=== PATIENT | male | born 1960 | race Caucasian/White ===

== ENCOUNTER 2016-08-19 12:04 | Inpatient (IN) | payer OTHER ==
[~2016-08-19] VITALS: Ht 182.9 cm; Wt 173.0 kg
[2016-08-19] MEDS ORDERED: IPRATRPIUM/ALBUTEROL 0.5/2.5MG 3 ML NEBU. NEB ONE (13:00)
[2016-08-19 13:39] LABS: BASO % 0 % (0-3); EOS % 0 % (0-3); HEMATOCRIT 43.6 % (39.0-53.0); HEMOGLOBIN 13.7 g/dL (13.0-17.5); LYMPH # 1.2 x10^3/uL (1.0-4.8); LYMPH % 11 % (24-48); MEAN CORPUSCULAR HEMOGLOBIN 25 pg (25-35); MEAN CORPUSCULAR HGB CONC 31 g/dL (31-37); MEAN CORPUSCULAR VOLUME 79 fL (79-100); MONO % 11 % (0-9); NEUT % 78 % (31-73); PLATELET COUNT 234 x10^3/uL (140-400); RED BLOOD COUNT 5.55 x10^6/uL (4.30-5.70); RED CELL DISTRIBUTION WIDTH 17.4 % (11.5-14.5); WHITE BLOOD COUNT 10.8 x10^3/uL (4.0-11.0)
[2016-08-19 13:48] LABS: CALCIUM 8.5 mg/dL (8.5-10.1); CREATININE 1.1 mg/dL (0.7-1.3); GFR 69.8; POTASSIUM 5.1 mmol/L (3.5-5.1)
--- NOTE | 2016-08-19 13:51 | RAD ---
EXAM: Chest one view. HISTORY: Chest pain. COMPARISON: 07/23/2005. FINDINGS: A frontal view of the chest is obtained. There are limitations from underpenetration. The left costophrenic aorta partially scooter. There are no clear confluent infiltrates. There is no pneumothorax or pleural effusion. The heart is mildly enlarged. IMPRESSION: 1. Limited projection. Mild cardiomegaly.
[2016-08-19 13:54] LABS: ALBUMIN 3.1 g/dL (3.4-5.0); DIRECT BILIRUBIN 0.1 mg/dL (0.0-0.2); TOTAL BILIRUBIN 0.5 mg/dL (0.2-1.0)
[2016-08-19] MEDS ORDERED: ASPIRIN 81 MG TAB.CHEW PO ONE (14:15)
[2016-08-19] MEDS ORDERED: FUROSEMIDE 40 MG/4 ML VIAL IVP ONE (14:15)
--- NOTE | 2016-08-19 14:24 | EKG ---
[facility] [address] [place] [address] Test Date: 2016-08-19 Test Time: 13:07:40 Pat Name: ELENA CHO Department: Room: Gender: M Deburrer Machine: : [id number] Requested By: TALIA DEL ROSARIO Order Number: [id number] Reading MD: Alee Renae Measurements Intervals Russell Rate: 105 P: MI: QRS: -107 QRSD: 102 T: 51 QT: 330 QTc: 440 Interpretive Statements ATRIAL FLUTTER/FIBRILLATION LOW LIMB LEAD VOLTAGE QRS(T) CONTOUR ABNORMALITY CONSIDER ANTEROSEPTAL MYOCARDIAL DAMAGE ABNORMAL ECG RI6.01 No previous ECG available for comparison Electronically Signed On 08-21-2016 20:21:35 STOCK ANALYST by Alee Renae
--- NOTE | 2016-08-19 14:25 | PHYS DOC ---
Past Medical History Past Medical History: No Pertinent History Past Surgical History: No Surgical History Alcohol Use: None Drug Use: None Adult General Chief Complaint Chief Complaint: SHORTNESS OF BREATH HPI HPI 56-year-old male presenting to the emergency department today with shortness of breath over the past 2 or 3 days. He is also noticed leg swelling and worsening dyspnea on exertion. He is also been gaining weight over the past few days. He denies any chest pain or abdominal pain. He has mild nausea intermittently without any vomiting. Onset 2-3 days. Location lungs. Duration intermittent. No alleviating factors present. Review of systems is negative for fevers chills cough abdominal pain or chest pain. All other review of systems is negative unless otherwise noted in history of present illness. Review of Systems Review of Systems SEE ABOVE. Current Medications Current Medications Current Medications Medications (Trade) Dose Ordered Sig/Josh Start Time Stop Time Status Last Admin Dose Admin Albuterol/ Ipratropium (Duoneb) 3 ml 1X ONCE 08/19/16 13:00 08/19/16 13:01 UNV 08/19/16 13:29 3 ML Aspirin (Children'S Aspirin) 324 mg 1X ONCE 08/19/16 14:15 08/19/16 14:16 UNV Furosemide (Lasix) 40 mg 1X ONCE 08/19/16 14:15 08/19/16 14:16 UNV Morphine Sulfate 2 mg PRN Q2HR PRN 08/19/16 14:30 08/20/16 14:29 UNV Ondansetron HCl (Zofran) 4 mg PRN Q8HRS PRN 08/19/16 14:30 08/20/16 14:29 UNV Physical Exam Physical Exam Constitutional: Well developed, well nourished, no acute distress, non-toxic appearance. HENT: Normocephalic, atraumatic, bilateral external ears normal, oropharynx moist, no oral exudates, nose normal. [] Eyes: PERRLA, EOMI, conjunctiva normal, no discharge. [] Neck: Normal range of motion, no tenderness, supple, no stridor. Cardiovascular:Heart rate regular rhythm, no murmur [] Lungs & Thorax: Patient had crackles bilaterally in the lungs with mild wheezing present. Abdomen: Bowel sounds normal, soft, no tenderness, no masses, no pulsatile masses. Skin: Warm, dry, no erythema, no rash. [] Back: No tenderness, no CVA tenderness. [] Extremities: No tenderness, no cyanosis, no clubbing, ROM intact, 3+ edema present. Venous congestion present bilaterally. Neurologic: Alert and oriented X 3, normal motor function, normal sensory function, no focal deficits noted. [] Psychologic: Affect normal, judgement normal, mood normal. [] Current Patient Data Vital Signs Vital Signs Date Time Temp Pulse Resp B/P Pulse Ox O2 Delivery O2 Flow Rate FiO2 08/19/16 13:29 Nasal Cannula 2.0 Lab Values Laboratory Tests Test 08/19/16 13:30 White Blood Count 10.8x10^3/uL (4.0-11.0) Red Blood Count 5.55x10^6/uL (4.30-5.70) Hemoglobin 13.7g/dL (13.0-17.5) Hematocrit 43.6% (39.0-53.0) Mean Corpuscular Volume 79fL (79-100) Mean Corpuscular Hemoglobin 25pg (25-35) Mean Corpuscular Hemoglobin Concent 31g/dL (31-37) Red Cell Distribution Width 17.4% (11.5-14.5) H Platelet Count 234x10^3/uL (140-400) Neutrophils (%) (Auto) 78% (31-73) H Lymphocytes (%) (Auto) 11% (24-48) L Monocytes (%) (Auto) 11% (0-9) H Eosinophils (%) (Auto) 0% (0-3) Basophils (%) (Auto) 0% (0-3) Neutrophils # (Auto) 8.4x10^3uL (1.8-7.7) H Lymphocytes # (Auto) 1.2x10^3/uL (1.0-4.8) Monocytes # (Auto) 1.2x10^3/uL (0.0-1.1) H Eosinophils # (Auto) 0.0x10^3/uL (0.0-0.7) Basophils # (Auto) 0.0x10^3/uL (0.0-0.2) Sodium Level 134mmol/L (136-145) L Potassium Level 5.1mmol/L (3.5-5.1) Chloride Level 98mmol/L (98-107) Carbon Dioxide Level 32mmol/L (21-32) Anion Gap 4 (6-14) L Blood Urea Nitrogen 32mg/dL (8-26) H Creatinine 1.1mg/dL (0.7-1.3) Estimated GFR (Cockcroft-Gault) 69.8 Glucose Level 107mg/dL (70-99) H Calcium Level 8.5mg/dL (8.5-10.1) Total Bilirubin 0.5mg/dL (0.2-1.0) Direct Bilirubin 0.1mg/dL (0.0-0.2) Aspartate Amino Transferase (AST) 30U/L (15-37) Alanine Aminotransferase (ALT) 35U/L (16-63) Alkaline Phosphatase 57U/L (46-116) Troponin I Quantitative 0.061ng/mL (0.000-0.055) LD-Qil-J-Type Natriuretic Peptide 3349pg/mL (0-124) H Total Protein 6.0g/dL (6.4-8.2) L Albumin 3.1g/dL (3.4-5.0) L Lipase 65U/L (73-393) L Laboratory Tests 08/19/16 13:30 Laboratory Tests 08/19/16 13:30 EKG EKG [] EKG shows an irregular rhythm with a mildly tachycardic rate. [place] is normal. Intervals are within normal limits. ST segments congruent. Radiology/Procedures Radiology/Procedures [] Course & Med Decision Making Course & Med Decision Making Pertinent Labs and Imaging studies reviewed. (See chart for details) [] 56-year-old male presenting to the emergency department today with worsening dyspnea and weight gain. Patient hypoxic initially placed on nasal cannula 4 L. Workup suggestive of CHF. Patient was given IV furosemide and admitted to our hospital for further evaluation workup and care. Cardiology and pulmonology consult placed. Dragon Disclaimer Dragon Disclaimer This electronic medical record was generated, in whole or in part, using a voice recognition dictation system. Departure Departure Impression: Primary Impression: CHF exacerbation Additional Impressions: Atrial fibrillation Obesity Dyspnea Hypoxia Disposition: ADMITTED INPATIENT Admitting Physician: Other (REUSCH) Condition: STABLE Referrals: NO PCP (PCP) Problem Qualifiers TALIA DEL ROSARIO MD Aug 19, 2016 14:25
[2016-08-19] MEDS ORDERED: ONDANSETRON PF 4 MG/2 ML VIAL. IV PRN (14:30)
[2016-08-19] MEDS ORDERED: MORPHINE SULFATE 2 MG/ML DISP.SYRIN. IV PRN (14:30)
--- NOTE | 2016-08-19 16:09 | ACF ---
Admission Forms Criteria HEART FAILURE: COMMON COMPLICATIONS Clinical Indications for Inpatient Care (Place 'X' for any and all applicable criteria): Ongoing inpatient care may be indicated for heart failure with ANY ONE of the following (1)(2)(3)(4)(5): [ ]I. Ongoing need for care for primary condition requiring frequent therapy adjustments because of changes in cardiac function (eg, drug dosage changes for drugs that are renally metabolized) [ ]II. New-onset heart failure [ ]III. Heart failure with decreased urine output not responsive to attempts to optimize volume status [ ]IV. Acute cardiac ischemia causing or associated with failure [X]V. Complications of heart failure, including ANY ONE of the following: [ ]a) Pericardial effusion [ ]b) Symptomatic pleural effusion [ ]c) O2 saturation <90% or PO2 < 60 mm Hg (8.0 kPa) on room air or require baseline supplemental O2 [ ]d) Tachypnea [X]e) Dyspnea [ ]f) Syncope [ ]g) Change in mental status [ ]h) Acute renal insufficiency that is severe (reduction of more than 50% in estimated glomerular filtration rate from baseline) or progressive reduction of more than 25% in estimated glomerular filtration rate from baseline, with creatinine continuing to rise) [ ]i) Hemodynamic instability [ ]j) Anasarca [ ]k) Clinically significant metabolic abnormalities due to heart failure (eg, new-onset metabolic acidosis) Extended stay beyond goal length of stay for primary condition may be needed until ALL of the following are present(1)(3): [ ]a) Stable and effective diuretic regimen established (or patient on stable dialysis regimen if in chronic renal failure) [ ]b) Breathing comfortably at rest [ ]c) Saturation of arterial oxygen greater than 90% or at acceptable baseline [ ]d) Pulmonary edema absent or improved [ ]e) Hemodynamic stability [ ]f) Volume status acceptable on oral medication [ ]g) Peripheral or sacral edema absent or improved [ ]h) Renal function stable and manageable at a lower level of care [ ]i) Complications (eg, pleural effusion) resolved or manageable at a lower level of care [ ]j) Patient or caregiver has received written discharge instructions or educational material addressing activity level, diet, discharge medications, follow-up appointment, weight monitoring, and what to do if symptoms worsen The original [facility] content created by [employer] has been revised. The portions of the content which have been revised are identified through the use of italic text or in bold, and [facility] has neither reviewed nor approved the modified material.All other unmodified content is copyright [facility]. Please see references footnoted in the original [facility] edition 2016 Admission Criteria Met?: Yes DERRICK REMY Aug 19, 2016 16:09
[2016-08-19 17:15] VITALS: BP 159/97
[2016-08-19] MEDS ORDERED: ENAL20TA PO (18:20)
[2016-08-19] MEDS ORDERED: ASPI325T4 PO (18:20)
[2016-08-19] MEDS ORDERED: ATEN25TA PO (18:20)
[2016-08-19 19:22] VITALS: BP 151/73
--- NOTE | 2016-08-19 21:11 | HP ---
ADMIT DATE: 08/19/2016 CHIEF COMPLAINT: Shortness of breath. HISTORY OF PRESENT ILLNESS: The patient is a 56-year-old gentleman with history of CAD, status post MT in 2005, who presented with a 2-3 day history of worsening shortness of breath and swelling. He relates that he had noticed weight gain over the past few days, although unable to specify. Last time he knows of his weight was in April of last year when it was 344, at this time he had lost weight essentially unintentionally to the tune of 50 pounds. He relates that the swelling actually had started about 3 days ago and got worse and worse, shortness of breath about the same time. He denies any ongoing chest pain, has some mild nausea occasionally. Denies any vomiting, abdominal pain or diarrhea. Denies any fevers or chills. Denies any other associated symptoms including cough or chest pain. In the Emergency Room, he was found with a proBNP of 3349 as well as a mildly elevated troponin at 0.061. Chest x-ray, however, revealed only mild cardiomegaly without any clear confluent infiltrate. The patient was therefore admitted with presumed diagnosis of new onset CHF. PAST MEDICAL HISTORY: CAD as above, sees every 6 months and was due for an echo soon. No other medical issues known. FAMILY HISTORY: No heart disease known in family. SOCIAL HISTORY: Lives by himself. Smokes about a pack a day since late teenage years. Denies any alcohol or drug use. ALLERGIES: No known drug allergies. MEDICATIONS: Home medications reconciled with MAR. REVIEW OF SYSTEMS: Positives as per HPI. Rest of organ system review is negative. PHYSICAL EXAMINATION: VITAL SIGNS: From today show a blood pressure of 136/75, heart rate of 104, respiratory rate at 22. He is afebrile. GENERAL: This is a morbidly obese gentleman, alert and oriented, in no acute distress. HEENT: Shows no scleral icterus. NECK: Short and thick. No JVD, no lymphadenopathy. CHEST: Lungs are clear. LUNGS: With distant breath sounds. HEART: Regular rate and rhythm. Distant heart sounds. ABDOMEN: Massively obese striae present, organs could not be palpated. EXTREMITIES: Show 1 to 2+ edema in the lower extremities bilaterally. SKIN: Warm, soft and dry without any rash. LABORATORY DATA: BUN and creatinine of 32 and 1.1. Electrolytes with a sodium of 134, potassium 5.1. ProBNP 3349, troponin 0.061, albumin 3.1. Hematology with a WBC of 10.8, hemoglobin 13.7, platelets of 234, MCV at 79. ASSESSMENT AND PLAN: The patient is a 56-year-old gentleman with morbid obesity, heart disease as well as smoking for risk factors, now presenting with signs and symptoms of congestive heart failure. He has had no history of such in the past according to him. We will get him to the CCU, diurese him further carefully given his apparent azotemia. We will need an echo. Cardiac consult has been obtained. Cannot rule out chronic obstructive pulmonary disease component in him as well. Pulmonary consult has been obtained as well. The patient has microcytic anemia, suspicious for GI bleed. We will obtain additional labs to elucidate. Prophylaxis will be obtained with heparin subcutaneous and H2 onel for now. URBAN PRASAD MD DR: SUJATA/nts JOB#: [id number] / [id number] GABRIELA
[2016-08-19 22:32] VITALS: BP 135/96
[2016-08-20] VITALS (13 sets, daily range): BP systolic 98–184; BP diastolic 58–104
[2016-08-20 06:12] LABS: CALCIUM 8.4 mg/dL (8.5-10.1); CREATININE 1.1 mg/dL (0.7-1.3); GFR 69.8; POTASSIUM 5.1 mmol/L (3.5-5.1)
[2016-08-20 06:35] LABS: BASO % 0 % (0-3); EOS % 0 % (0-3); HEMATOCRIT 47.8 % (39.0-53.0); HEMOGLOBIN 14.5 g/dL (13.0-17.5); LYMPH # 1.6 x10^3/uL (1.0-4.8); LYMPH % 14 % (24-48); MEAN CORPUSCULAR HEMOGLOBIN 24 pg (25-35); MEAN CORPUSCULAR HGB CONC 30 g/dL (31-37); MEAN CORPUSCULAR VOLUME 79 fL (79-100); MONO % 13 % (0-9); NEUT % 73 % (31-73); PLATELET COUNT 245 x10^3/uL (140-400); RED BLOOD COUNT 6.03 x10^6/uL (4.30-5.70); RED CELL DISTRIBUTION WIDTH 17.5 % (11.5-14.5); WHITE BLOOD COUNT 11.3 x10^3/uL (4.0-11.0)
[2016-08-20] MEDS ORDERED: DILTIAZEM 125 MG in IV DEXTROSE 5% 100 ML IV PRN (08:45)
[2016-08-20] MEDS ORDERED: DILTIAZEM IV PUSH 25 MG/5 ML VIAL. IVP ONE (09:00)
[2016-08-20] MEDS ORDERED: DIGOXIN 500 MCG/2 ML AMPUL. IV ONE (09:00)
[2016-08-20] MEDS: FUROSEMIDE 40 MG TABLET PO SCH ×3 (10:00→12:07)
--- NOTE | 2016-08-20 10:11 | PDOC2 ---
HALEY IRENE PRIMER INSERTING MACHINE OPERATOR 08/20/16 1011: CARDIAC CONSULT DATE OF CONSULT Date of Consult DATE: 08/20/16 TIME: 09:32 REASON FOR CONSULT Reason for Consult: CHF REFERRING PHYSICIAN Referring Physician: Ermias SOURCE Source: Chart review, Patient HISTORY OF PRESENT ILLNESS HISTORY OF PRESENT ILLNESS This is a pleasant 56 yo male admitted for complains of SOA in the last 2-3 days. Reports that his activity tolerance has decreased, increasing MCKAY. Denies cough. and no PND. He feels that he has gained weight, feel bloated and tighter LE. Denies any chest pain and does not seem to have sensation of palpitations. His mobility is rather limited due to morbid obesity. Denies any fever, chills, falls, dizziness, or any recent injury. Medications sandoval he has been taking atenolol, vasotec and ASA. Currently he is feeling better upright sitting. He drinks about 2-3 L of fluids daily and has not been told of any past history of AFIB nor CHF. Denies any past VTE, nor bleeding history. PAST MEDICAL HISTORY Cardiovascular: CAD, HTN, PA (2005), Hyperlipidemia Pulmonary: Other (chronic tobaccoism) CENTRAL NERVOUS SYSTEM: Other (No pertinent history) GI: No pertinent hx Heme/Onc: No pertinent hx Hepatobiliary: No pertinent hx Psych: No pertinent hx Musculoskeletal: Osteoarthritis, Other (morbid obesity) Rheumatologic: No pertinent hx Infectious disease: No pertinent hx ENT: No pertinent hx Renal/: No pertinent hx Endocrine: No pertinent hx Dermatology: No pertinent hx PAST SURGICAL HISTORY Past Surgical History: Other (PCI/stent 2005) FAMILY HISTORY Family History noncontributory to CV SOCIAL HISTORY Smoke: 1 pack per day (>30 yrs) ALCOHOL: none Drugs: None Lives: with Family CURRENT MEDICATIONS CURRENT MEDICATIONS Current Medications Medications (Trade) Dose Ordered Sig/Josh Route PRN Reason Start Time Stop Time Status Last Admin Dose Admin Albuterol/ Ipratropium (Duoneb) 3 ml 1X ONCE NEB 08/19/16 13:00 08/19/16 15:13 DC 08/19/16 13:29 Furosemide (Lasix) 40 mg 1X ONCE IVP 08/19/16 14:15 08/19/16 15:13 DC 08/19/16 16:30 Aspirin (Children'S Aspirin) 324 mg 1X ONCE PO 2/24/17 14:15 08/19/16 15:13 DC 08/19/16 16:29 ALLERGIES ALLERGIES: Coded Allergies: No Known Drug Allergies (Unverified , 08/19/16) ROS Review of System 14 point ROS evaluated with pertinent positives noted per HPI PHYSICAL EXAM General: Alert, Oriented X3, Cooperative, No acute distress HEENT: Atraumatic, Mucous membr. moist/pink Lungs: Other (diminished with diuffse basilar wheeze) Heart: Other (AFIB RVR) Abdomen: Soft, No tenderness, Other (obese) Extremities: No cyanosis, Other (4+ bilateral LE pitting edema) Skin: Other (RLE venous stasis lesion) Neuro: Normal speech, Sensation intact Psych/Mental Status: Mental status NL MUSCULOSKELETAL: Osteoarthritic changes both hands VITALS VITALS Vital Signs Date Time Temp Pulse Resp B/P Pulse Ox O2 Delivery O2 Flow Rate FiO2 08/20/16 07:43 97.7 115 18 122/69 92 Nasal Cannula 4.0 97.7 LABS Lab: Laboratory Tests Test 08/19/16 13:30 08/19/16 20:30 08/20/16 02:30 White Blood Count 10.8x10^3/uL (4.0-11.0) 11.3x10^3/uL (4.0-11.0) Red Blood Count 5.55x10^6/uL (4.30-5.70) 6.03x10^6/uL (4.30-5.70) Hemoglobin 13.7g/dL (13.0-17.5) 14.5g/dL (13.0-17.5) Hematocrit 43.6% (39.0-53.0) 47.8% (39.0-53.0) Mean Corpuscular Volume 79fL (79-100) 79fL (79-100) Mean Corpuscular Hemoglobin 25pg (25-35) 24pg (25-35) Mean Corpuscular Hemoglobin Concent 31g/dL (31-37) 30g/dL (31-37) Red Cell Distribution Width 17.4% (11.5-14.5) 17.5% (11.5-14.5) Platelet Count 234x10^3/uL (140-400) 245x10^3/uL (140-400) Neutrophils (%) (Auto) 78% (31-73) 73% (31-73) Lymphocytes (%) (Auto) 11% (24-48) 14% (24-48) Monocytes (%) (Auto) 11% (0-9) 13% (0-9) Eosinophils (%) (Auto) 0% (0-3) 0% (0-3) Basophils (%) (Auto) 0% (0-3) 0% (0-3) Neutrophils # (Auto) 8.4x10^3uL (1.8-7.7) 8.2x10^3uL (1.8-7.7) Lymphocytes # (Auto) 1.2x10^3/uL (1.0-4.8) 1.6x10^3/uL (1.0-4.8) Monocytes # (Auto) 1.2x10^3/uL (0.0-1.1) 1.4x10^3/uL (0.0-1.1) Eosinophils # (Auto) 0.0x10^3/uL (0.0-0.7) 0.0x10^3/uL (0.0-0.7) Basophils # (Auto) 0.0x10^3/uL (0.0-0.2) 0.0x10^3/uL (0.0-0.2) Sodium Level 134mmol/L (136-145) 134mmol/L (136-145) Potassium Level 5.1mmol/L (3.5-5.1) 5.1mmol/L (3.5-5.1) Chloride Level 98mmol/L (98-107) 96mmol/L (98-107) Carbon Dioxide Level 32mmol/L (21-32) 30mmol/L (21-32) Anion Gap 4 (6-14) 8 (6-14) Blood Urea Nitrogen 32mg/dL (8-26) 31mg/dL (8-26) Creatinine 1.1mg/dL (0.7-1.3) 1.1mg/dL (0.7-1.3) Estimated GFR (Cockcroft-Gault) 69.8 69.8 Glucose Level 107mg/dL (70-99) 66mg/dL (70-99) Calcium Level 8.5mg/dL (8.5-10.1) 8.4mg/dL (8.5-10.1) Total Bilirubin 0.5mg/dL (0.2-1.0) Direct Bilirubin 0.1mg/dL (0.0-0.2) Aspartate Amino Transf (AST/SGOT) 30U/L (15-37) Alanine Aminotransferase (ALT/SGPT) 35U/L (16-63) Alkaline Phosphatase 57U/L (46-116) Troponin I Quantitative 0.061ng/mL (0.000-0.055) 0.046ng/mL (0.000-0.055) 0.044ng/mL (0.000-0.055) KY-Nby-X-Type Natriuretic Peptide 3349pg/mL (0-124) Total Protein 6.0g/dL (6.4-8.2) Albumin 3.1g/dL (3.4-5.0) Lipase 65U/L (73-393) ASSESSMENT/PLAN ASSESSMENT/PLAN 1. Acute CHF with possible diastolic dysfunction: New. Likely induced by uncontrolled AFIB. Better after lasix. 2. AFIB RVR: new onset, suspect has been having paroxysms with multiple potential triggers including JETT/COPD 3. CAD: PA/PCI/stent 2005. CP free, last stress test 2-3 yrs ago 4. HTN 5. HLP 6. Morbid obesity 7. Hypoglycemia 8. Tobaccoism 9. Highly suspect JETT with underlying COPD 10. Venous insufficiency Recommendations 1. TTE tomorrow 2. Cardizem bolus and drip to start. Dig IV bolus 3. TSH, lipid panel, Mg 4. Continue with lasix therapy and will switch to PO 5. Smoking cessation 6. Discussed OAC/NOAC with pt and would prefer to start on eliquis for stroke prevention 7. If no conversion to SR then will plan for outpt cardioversion. 8. Continue with secondary prevention 9. GI prophylaxis. 10. Consult lymphedema specialist 11. Pulmonary consult pending 12. Request records from Dr. Franco in Problems: RADHA BANERJEE MD 08/20/16 1527: CARDIAC CONSULT ALLERGIES ALLERGIES: Coded Allergies: No Known Drug Allergies (Unverified , 08/19/16) ASSESSMENT/PLAN ASSESSMENT/PLAN Patient seen and examined. Agree with PRINT MACHINE OPERATOR's assessment and plan. Congestive heart failure most probably acute on chronic diastolic precipitated by rapid ventricular response. Symptoms improving with diuresis. Start Cardizem infusion and titrate for better rate control of atrial fibrillation with rapid ventricular response. Start a eliquis for stroke prophylaxis. Check 2-D echo to assess left ventricle systolic function. We will obtain records from primary expediter clerk's office and make further recommendations. Thank you for your consultation. Problems: HALEY IRENE APRN Aug 20, 2016 10:11 RADHA BANERJEE MD Aug 20, 2016 15:27
[2016-08-20 10:44] LABS: CHOLESTEROL/HDL RATIO 4.3
--- NOTE | 2016-08-20 11:35 | PDOC ---
PROGRESS NOTES Chief Complaint Chief Complaint CC: Shortness of breath 1. CHF - new 2. A fib 3. CAD 4. HTN 5. HLP 6. Morbid obesity 7. Hypoglycemia 8. Tobaccoism 9. Sleep apnea 10. Venous insufficiency History of Present Illness History of Present Illness Pt sitting in bed today, finished lunch Discussed that cardiology and pulmonology have been consulted Discussed cardiac work up that pt will receive Pt is pleasant and agrees with the plan DW RN Vitals Vitals Vital Signs Date Time Temp Pulse Resp B/P Pulse Ox O2 Delivery O2 Flow Rate FiO2 08/20/16 11:04 97.7 108 20 153/86 95 Nasal Cannula 97.7 08/20/16 08:00 4.0 Physical Exam General: Alert, Oriented X3, Cooperative, No acute distress Heart: Other (AFIB RVR) Lungs: Clear, Other (No wheezing) Abdomen: Soft, No tenderness, Other (obese) Extremities: No cyanosis, Other (4+ bilateral LE pitting edema) Skin: No breakdown, Other (RLE venous stasis lesion) Labs LABS Laboratory Tests Test 08/19/16 13:30 08/19/16 20:30 08/20/16 02:30 White Blood Count 10.8x10^3/uL (4.0-11.0) 11.3x10^3/uL (4.0-11.0) Red Blood Count 5.55x10^6/uL (4.30-5.70) 6.03x10^6/uL (4.30-5.70) Hemoglobin 13.7g/dL (13.0-17.5) 14.5g/dL (13.0-17.5) Hematocrit 43.6% (39.0-53.0) 47.8% (39.0-53.0) Mean Corpuscular Volume 79fL (79-100) 79fL (79-100) Mean Corpuscular Hemoglobin 25pg (25-35) 24pg (25-35) Mean Corpuscular Hemoglobin Concent 31g/dL (31-37) 30g/dL (31-37) Red Cell Distribution Width 17.4% (11.5-14.5) 17.5% (11.5-14.5) Platelet Count 234x10^3/uL (140-400) 245x10^3/uL (140-400) Neutrophils (%) (Auto) 78% (31-73) 73% (31-73) Lymphocytes (%) (Auto) 11% (24-48) 14% (24-48) Monocytes (%) (Auto) 11% (0-9) 13% (0-9) Eosinophils (%) (Auto) 0% (0-3) 0% (0-3) Basophils (%) (Auto) 0% (0-3) 0% (0-3) Neutrophils # (Auto) 8.4x10^3uL (1.8-7.7) 8.2x10^3uL (1.8-7.7) Lymphocytes # (Auto) 1.2x10^3/uL (1.0-4.8) 1.6x10^3/uL (1.0-4.8) Monocytes # (Auto) 1.2x10^3/uL (0.0-1.1) 1.4x10^3/uL (0.0-1.1) Eosinophils # (Auto) 0.0x10^3/uL (0.0-0.7) 0.0x10^3/uL (0.0-0.7) Basophils # (Auto) 0.0x10^3/uL (0.0-0.2) 0.0x10^3/uL (0.0-0.2) Sodium Level 134mmol/L (136-145) 134mmol/L (136-145) Potassium Level 5.1mmol/L (3.5-5.1) 5.1mmol/L (3.5-5.1) Chloride Level 98mmol/L (98-107) 96mmol/L (98-107) Carbon Dioxide Level 32mmol/L (21-32) 30mmol/L (21-32) Anion Gap 4 (6-14) 8 (6-14) Blood Urea Nitrogen 32mg/dL (8-26) 31mg/dL (8-26) Creatinine 1.1mg/dL (0.7-1.3) 1.1mg/dL (0.7-1.3) Estimated GFR (Cockcroft-Gault) 69.8 69.8 Glucose Level 107mg/dL (70-99) 66mg/dL (70-99) Calcium Level 8.5mg/dL (8.5-10.1) 8.4mg/dL (8.5-10.1) Total Bilirubin 0.5mg/dL (0.2-1.0) Direct Bilirubin 0.1mg/dL (0.0-0.2) Aspartate Amino Transf (AST/SGOT) 30U/L (15-37) Alanine Aminotransferase (ALT/SGPT) 35U/L (16-63) Alkaline Phosphatase 57U/L (46-116) Troponin I Quantitative 0.061ng/mL (0.000-0.055) 0.046ng/mL (0.000-0.055) 0.044ng/mL (0.000-0.055) OF-Ocg-L-Type Natriuretic Peptide 3349pg/mL (0-124) Total Protein 6.0g/dL (6.4-8.2) Albumin 3.1g/dL (3.4-5.0) Lipase 65U/L (73-393) Triglycerides Level 81mg/dL (0-150) Cholesterol Level 117mg/dL (0-200) LDL Cholesterol, Calculated 74mg/dL (0-100) VLDL Cholesterol, Calculated 16mg/dL (0-40) HDL Cholesterol 27mg/dL (40-60) Cholesterol/HDL Ratio 4.3 Thyroid Stimulating Hormone (TSH) 0.974uIU/mL (0.358-3.74) Review of Systems Review of Systems Complains of SOA Complains of fatigue Assessment and Plan Assessmemt and Plan Problems Medical Problems: (1) Atrial fibrillation Status: Acute (2) CHF exacerbation Status: Acute (3) Dyspnea Status: Acute (4) Hypoxia Status: Acute (5) Obesity Status: Acute Assessment: CC: Shortness of breath 1. CHF - new 2. A fib 3. CAD 4. HTN 5. HLP 6. Morbid obesity 7. Hypoglycemia 8. Tobaccoism 9. Sleep apnea 10. Venous insufficiency Plan: Cardiology is following - TTE tomorrow, continue Lasix, Cardizem, Dig Pulmonology is following Consult lymphedema specialist Repeat labs PTOT Appreciate input from subspecialties Problems: Comment Review of Relevant I have reviewed the following items johnna (where applicable) has been applied. Labs Laboratory Tests Test 08/19/16 13:30 08/19/16 20:30 08/20/16 02:30 White Blood Count 10.8x10^3/uL (4.0-11.0) 11.3x10^3/uL (4.0-11.0) Red Blood Count 5.55x10^6/uL (4.30-5.70) 6.03x10^6/uL (4.30-5.70) Hemoglobin 13.7g/dL (13.0-17.5) 14.5g/dL (13.0-17.5) Hematocrit 43.6% (39.0-53.0) 47.8% (39.0-53.0) Mean Corpuscular Volume 79fL (79-100) 79fL (79-100) Mean Corpuscular Hemoglobin 25pg (25-35) 24pg (25-35) Mean Corpuscular Hemoglobin Concent 31g/dL (31-37) 30g/dL (31-37) Red Cell Distribution Width 17.4% (11.5-14.5) 17.5% (11.5-14.5) Platelet Count 234x10^3/uL (140-400) 245x10^3/uL (140-400) Neutrophils (%) (Auto) 78% (31-73) 73% (31-73) Lymphocytes (%) (Auto) 11% (24-48) 14% (24-48) Monocytes (%) (Auto) 11% (0-9) 13% (0-9) Eosinophils (%) (Auto) 0% (0-3) 0% (0-3) Basophils (%) (Auto) 0% (0-3) 0% (0-3) Neutrophils # (Auto) 8.4x10^3uL (1.8-7.7) 8.2x10^3uL (1.8-7.7) Lymphocytes # (Auto) 1.2x10^3/uL (1.0-4.8) 1.6x10^3/uL (1.0-4.8) Monocytes # (Auto) 1.2x10^3/uL (0.0-1.1) 1.4x10^3/uL (0.0-1.1) Eosinophils # (Auto) 0.0x10^3/uL (0.0-0.7) 0.0x10^3/uL (0.0-0.7) Basophils # (Auto) 0.0x10^3/uL (0.0-0.2) 0.0x10^3/uL (0.0-0.2) Sodium Level 134mmol/L (136-145) 134mmol/L (136-145) Potassium Level 5.1mmol/L (3.5-5.1) 5.1mmol/L (3.5-5.1) Chloride Level 98mmol/L (98-107) 96mmol/L (98-107) Carbon Dioxide Level 32mmol/L (21-32) 30mmol/L (21-32) Anion Gap 4 (6-14) 8 (6-14) Blood Urea Nitrogen 32mg/dL (8-26) 31mg/dL (8-26) Creatinine 1.1mg/dL (0.7-1.3) 1.1mg/dL (0.7-1.3) Estimated GFR (Cockcroft-Gault) 69.8 69.8 Glucose Level 107mg/dL (70-99) 66mg/dL (70-99) Calcium Level 8.5mg/dL (8.5-10.1) 8.4mg/dL (8.5-10.1) Total Bilirubin 0.5mg/dL (0.2-1.0) Direct Bilirubin 0.1mg/dL (0.0-0.2) Aspartate Amino Transf (AST/SGOT) 30U/L (15-37) Alanine Aminotransferase (ALT/SGPT) 35U/L (16-63) Alkaline Phosphatase 57U/L (46-116) Troponin I Quantitative 0.061ng/mL (0.000-0.055) 0.046ng/mL (0.000-0.055) 0.044ng/mL (0.000-0.055) PN-Rhy-B-Type Natriuretic Peptide 3349pg/mL (0-124) Total Protein 6.0g/dL (6.4-8.2) Albumin 3.1g/dL (3.4-5.0) Lipase 65U/L (73-393) Triglycerides Level 81mg/dL (0-150) Cholesterol Level 117mg/dL (0-200) LDL Cholesterol, Calculated 74mg/dL (0-100) VLDL Cholesterol, Calculated 16mg/dL (0-40) HDL Cholesterol 27mg/dL (40-60) Cholesterol/HDL Ratio 4.3 Thyroid Stimulating Hormone (TSH) 0.974uIU/mL (0.358-3.74) Laboratory Tests Test 08/19/16 13:30 08/19/16 20:30 08/20/16 02:30 White Blood Count 10.8x10^3/uL (4.0-11.0) 11.3x10^3/uL (4.0-11.0) Red Blood Count 5.55x10^6/uL (4.30-5.70) 6.03x10^6/uL (4.30-5.70) Hemoglobin 13.7g/dL (13.0-17.5) 14.5g/dL (13.0-17.5) Hematocrit 43.6% (39.0-53.0) 47.8% (39.0-53.0) Mean Corpuscular Volume 79fL (79-100) 79fL (79-100) Mean Corpuscular Hemoglobin 25pg (25-35) 24pg (25-35) Mean Corpuscular Hemoglobin Concent 31g/dL (31-37) 30g/dL (31-37) Red Cell Distribution Width 17.4% (11.5-14.5) 17.5% (11.5-14.5) Platelet Count 234x10^3/uL (140-400) 245x10^3/uL (140-400) Neutrophils (%) (Auto) 78% (31-73) 73% (31-73) Lymphocytes (%) (Auto) 11% (24-48) 14% (24-48) Monocytes (%) (Auto) 11% (0-9) 13% (0-9) Eosinophils (%) (Auto) 0% (0-3) 0% (0-3) Basophils (%) (Auto) 0% (0-3) 0% (0-3) Neutrophils # (Auto) 8.4x10^3uL (1.8-7.7) 8.2x10^3uL (1.8-7.7) Lymphocytes # (Auto) 1.2x10^3/uL (1.0-4.8) 1.6x10^3/uL (1.0-4.8) Monocytes # (Auto) 1.2x10^3/uL (0.0-1.1) 1.4x10^3/uL (0.0-1.1) Eosinophils # (Auto) 0.0x10^3/uL (0.0-0.7) 0.0x10^3/uL (0.0-0.7) Basophils # (Auto) 0.0x10^3/uL (0.0-0.2) 0.0x10^3/uL (0.0-0.2) Sodium Level 134mmol/L (136-145) 134mmol/L (136-145) Potassium Level 5.1mmol/L (3.5-5.1) 5.1mmol/L (3.5-5.1) Chloride Level 98mmol/L (98-107) 96mmol/L (98-107) Carbon Dioxide Level 32mmol/L (21-32) 30mmol/L (21-32) Anion Gap 4 (6-14) 8 (6-14) Blood Urea Nitrogen 32mg/dL (8-26) 31mg/dL (8-26) Creatinine 1.1mg/dL (0.7-1.3) 1.1mg/dL (0.7-1.3) Estimated GFR (Cockcroft-Gault) 69.8 69.8 Glucose Level 107mg/dL (70-99) 66mg/dL (70-99) Calcium Level 8.5mg/dL (8.5-10.1) 8.4mg/dL (8.5-10.1) Total Bilirubin 0.5mg/dL (0.2-1.0) Direct Bilirubin 0.1mg/dL (0.0-0.2) Aspartate Amino Transf (AST/SGOT) 30U/L (15-37) Alanine Aminotransferase (ALT/SGPT) 35U/L (16-63) Alkaline Phosphatase 57U/L (46-116) Troponin I Quantitative 0.061ng/mL (0.000-0.055) 0.046ng/mL (0.000-0.055) 0.044ng/mL (0.000-0.055) OM-Gdx-F-Type Natriuretic Peptide 3349pg/mL (0-124) Total Protein 6.0g/dL (6.4-8.2) Albumin 3.1g/dL (3.4-5.0) Lipase 65U/L (73-393) Triglycerides Level 81mg/dL (0-150) Cholesterol Level 117mg/dL (0-200) LDL Cholesterol, Calculated 74mg/dL (0-100) VLDL Cholesterol, Calculated 16mg/dL (0-40) HDL Cholesterol 27mg/dL (40-60) Cholesterol/HDL Ratio 4.3 Thyroid Stimulating Hormone (TSH) 0.974uIU/mL (0.358-3.74) Medications Current Medications Albuterol/ Ipratropium (Duoneb) 3 ml 1X ONCE NEB Last administered on 13:29; Start 08/19/16 at 13:00; Stop 08/19/16 at 15:13; Status DC Furosemide (Lasix) 40 mg 1X ONCE IVP Last administered on 08/19/16 16:30; Start 08/19/16 at 14:15; Stop 08/19/16 at 15:13; Status DC Aspirin (Children'S Aspirin) 324 mg 1X ONCE PO Last administered on 08/19/16 16:29; Start 08/19/16 at 14:15; Stop 08/19/16 at 15:13; Status DC Ondansetron HCl (Zofran) 4 mg PRN Q8HRS PRN IV NAUSEA/VOMITING; Start 08/19/16 at 14:30; Stop 08/20/16 at 14:29 Morphine Sulfate 2 mg PRN Q2HR PRN IV PAIN; Start 08/19/16 at 14:30; Stop 08/20 at 14:29 Digoxin 500 mcg 500 mcg 1X ONCE IV Last administered on 08/20/16 09:51; Start 08/20/16 at 09:00; Stop 08/20/16 at 09:01; Status DC Diltiazem HCl/ Dextrose (Cardizem) 125 ml @ 0 mls/hr CONT PRN IV SEE I/O RECORD Last administered on 08/20/16t 09:52; Start 08/20/16 at 08:45 Diltiazem HCl (Cardizem) 10 mg 1X ONCE IVP Last administered on 08/20/16t 09: 51; Start 08/20/16 at 09:00; Stop 08/20/16 at 09:01; Status DC Aspirin (Ecotrin) 81 mg DAILYWBKFT PO ; Start 08/20/16 at 10:00 Famotidine (Pepcid) 20 mg QHS PO ; Start 08/20/16 at 21:00 Furosemide (Lasix) 40 mg DAILY PO ; Start 08/20/16 at 10:00 Lisinopril (Prinivil) 10 mg DAILY PO ; Start 08/20/16 at 10:00 Furosemide (Lasix) 40 mg BID92 PO ; Start 08/20/16 at 10:00; Stop 08/20/16 at 21 :00 Apixaban (Eliquis) 5 mg BID PO ; Start 08/20/16 at 11:00 Active Scripts Active Reported Aspirin 325 Mg Tablet 1 Tab PO DAILY Atenolol 25 Mg Tablet 1 Tab PO DAILY Enalapril Maleate 20 Mg Tablet 1 Tab PO BID Vitals/I & O Vital Sign - Last 24 Hours 08/19/16 08/19/16 08/19/16 08/19/16 12:54 13:10 13:29 13:40 Temp 97.8 97.8 Pulse 112 100 102 Resp B/P 151/84 140/74 135/79 Pulse Ox 85 92 92 O2 Delivery Room Air Nasal Cannula Nasal Cannula Nasal Cannula O2 Flow Rate 4 2.0 4 08/19/16 08/19/16 08/19/16 08/19/16 14:10 14:40 15:10 15:40 Pulse 106 106 108 102 Resp B/P 126/89 135/76 136/72 128/74 Pulse Ox 91 91 91 92 O2 Delivery Nasal Cannula Nasal Cannula Nasal Cannula Nasal Cannula O2 Flow Rate 4 4 4 4 08/19/16 08/19/16 08/19/16 08/19/16 16:10 17:15 19:22 20:00 Temp 97.6 97.7 97.6 97.7 Pulse 104 97 110 Resp B/P 136/75 159/97 151/73 Pulse Ox 92 95 90 O2 Delivery Nasal Cannula Nasal Cannula Nasal Cannula Nasal Cannula O2 Flow Rate 4 4.0 4.0 4.0 08/19/16 08/20/16 08/20/16 08/20/16 22:32 02:47 07:43 08:00 Temp 97.6 97.5 97.7 97.6 97.5 97.7 Pulse 88 109 115 Resp B/P 135/96 151/96 122/69 Pulse Ox 92 92 92 O2 Delivery Nasal Cannula Nasal Cannula Nasal Cannula Nasal Cannula O2 Flow Rate 4.0 4.0 4.0 4.0 08/20/16 08/20/16 08/20/16 09:51 09:51 11:04 Temp 97.7 97.7 Pulse 120 120 108 Resp 20 B/P 122/69 122/69 153/86 Pulse Ox 95 O2 Delivery Nasal Cannula Intake and Output 08/19/16 08/19/16 08/20/16 15:00 23:00 07:00 Intake Total 210 ml 740 ml Balance 210 ml 740 ml BRITTNEY LAMB III DO Aug 20, 2016 11:35
--- NOTE | 2016-08-20 11:59 | PDOC ---
Provider Note Provider Note dictated ELLA XAVIER MD Aug 20, 2016 11:59
[2016-08-20] MEDS ORDERED: FUROSEMIDE 40 MG/4 ML VIAL IVP ONE (12:00)
--- NOTE | 2016-08-20 12:20 | CONS ---
DATE OF CONSULTATION: ATTENDING PHYSICIAN: Janeen Verdugo MD REASON FOR CONSULTATION: Dyspnea. HISTORY OF PRESENT ILLNESS: The patient is a 56-year-old male who has history of CAD status post MS in 2005. He presents to the hospital with 2-3 day history of worsening shortness of breath. He has significant bloating in his abdomen. He has gained about 20 pounds in the last 4 days and had lower extremity edema. His lower extremities were weeping fluid. The patient has no cough, no pains. No nausea, vomiting, or diarrhea. Chest x-ray was consistent with congestive heart failure. PAST MEDICAL HISTORY: Significant for history of CAD, history of MS in 2006, history of suspected JETT, OHS. FAMILY HISTORY: Noncontributory lung. SOCIAL HISTORY: Lives by himself and smokes 1 pack a day and has been doing it for past 30 years. No history of alcohol use. ALLERGIES: None. CURRENT MEDICATIONS: Reviewed as listed in the MRAD including diuresis. REVIEW OF SYSTEMS: Twelve-point systems obtained. Pertinent positives discussed in history of present illness, otherwise noncontributory. All systems that were negative were reviewed as well. SOCIAL HISTORY: Smoker for 30 years and still smokes cigarettes. PHYSICAL EXAMINATION: VITAL SIGNS: Blood pressure 153/86, his pulse is 120 irregular, AFib, and pulse ox 95% on 4 liters. NECK: Supple. LUNGS: Diminished breath sounds. CARDIOVASCULAR: Irregular rhythm. ABDOMEN: Markedly obese. EXTREMITIES: With bilateral pitting edema and erythema. LABORATORY DATA: Reviewed. White cell count 11.3, hemoglobin 14.5, platelets are 245, BUN is 31, creatinine 1.1. TSH 0.974. IMPRESSION: 1. Acute hypoxic respiratory failure, I suspect secondary to multifactorial etiologies including weight gain of 20 pounds and suspected right and left heart failure. 2. Marked obesity with chronic hypercapnia, suspect underlying obesity hypoventilation syndrome and suspected obstructive sleep apnea. 3. History of myocardial infarction in 2006 and coronary artery disease. This will need an echo to rule out LV dysfunction and assess for pulmonary hypertension. 4. Weight gain of 20 pounds in the last 4 days, also contributing to his symptoms. 5. Abnormal chest x-ray consistent with congestive heart failure. RECOMMENDATIONS: 1. Continue with present diuresis, may give extra IV Lasix. 2. Continue with oxygen, gradually weaning oxygen down to keep saturation 92% and above. 3. Follow up chest x-ray. 4. Obtain echocardiogram to assess for left ventricular dysfunction and to rule out pulmonary hypertension. 5. The patient would benefit from outpatient sleep study. 6. Weight loss is advised to the patient. 7. Discussed with RN. ELLA XAVIER MD DR: ARJUN/july JOB#: [id number] / [id number]
[2016-08-20] MEDS: LISINOPRIL 10 MG TABLET PO SCH (12:34)
[2016-08-20] MEDS: APIXABAN 5 MG TABLET. PO SCH ×2 (12:34→22:22)
[2016-08-20] MEDS: ASPIRIN ENTERIC COATED 81 MG TABLET.DR. PO SCH (12:35)
[2016-08-20] MEDS: IPRATRPIUM/ALBUTEROL 0.5/2.5MG 3 ML NEBU. NEB SCH ×2 (15:08→18:22)
[2016-08-20] MEDS ORDERED: DILTIAZEM HCL 240 MG CAP.ER.24H PO ONE (22:15)
[2016-08-20] MEDS: FAMOTIDINE 20 MG TABLET. PO SCH (22:22)
[2016-08-21 03:50] VITALS: BP 133/80
[2016-08-21] MEDS: IPRATRPIUM/ALBUTEROL 0.5/2.5MG 3 ML NEBU. NEB SCH ×4 (07:29→19:51)
[2016-08-21 07:48] VITALS: BP 168/103
[2016-08-21] MEDS: FUROSEMIDE 40 MG TABLET PO SCH (09:28)
[2016-08-21] MEDS: ASPIRIN ENTERIC COATED 81 MG TABLET.DR. PO SCH (09:28)
[2016-08-21] MEDS: APIXABAN 5 MG TABLET. PO SCH ×2 (09:28→21:38)
[2016-08-21] MEDS: LISINOPRIL 10 MG TABLET PO SCH (09:29)
[2016-08-21 09:36] LABS: BASO % 0 % (0-3); CALCIUM 8.6 mg/dL (8.5-10.1); CREATININE 0.9 mg/dL (0.7-1.3); EOS % 0 % (0-3); GFR 87.9; HEMATOCRIT 48.2 % (39.0-53.0); HEMOGLOBIN 14.9 g/dL (13.0-17.5); LYMPH # 0.9 x10^3/uL (1.0-4.8); LYMPH % 9 % (24-48); MEAN CORPUSCULAR HEMOGLOBIN 24 pg (25-35); MEAN CORPUSCULAR HGB CONC 31 g/dL (31-37); MEAN CORPUSCULAR VOLUME 79 fL (79-100); MONO % 12 % (0-9); NEUT % 79 % (31-73); PLATELET COUNT 172 x10^3/uL (140-400); POTASSIUM 5.3 mmol/L (3.5-5.1); RED BLOOD COUNT 6.13 x10^6/uL (4.30-5.70); RED CELL DISTRIBUTION WIDTH 17.5 % (11.5-14.5); WHITE BLOOD COUNT 10.1 x10^3/uL (4.0-11.0)
--- NOTE | 2016-08-21 09:50 | PDOC ---
PULMONARY PROGRESS NOTES Subjective feels better Vitals Vital Signs Date Time Temp Pulse Resp B/P Pulse Ox O2 Delivery O2 Flow Rate FiO2 08/21/16 09:29 110 168/103 08/21/16 07:48 97.4 22 92 Nasal Cannula 97.4 08/21/16 07:30 4.5 ROS: No Nausea, No Chest Pain, No Abdominal Pain Lungs: Other (No wheezing) Cardiovascular: S1 Abdomen: Soft, Other (obese) Neuro Exam: Alert Extremities: Other (2+edema) Labs Laboratory Tests Test 08/19/16 13:30 08/19/16 20:30 08/20/16 02:30 08/21/16 09:02 White Blood Count 10.8x10^3/uL (4.0-11.0) 11.3x10^3/uL (4.0-11.0) Red Blood Count 5.55x10^6/uL (4.30-5.70) 6.03x10^6/uL (4.30-5.70) Hemoglobin 13.7g/dL (13.0-17.5) 14.5g/dL (13.0-17.5) Hematocrit 43.6% (39.0-53.0) 47.8% (39.0-53.0) Mean Corpuscular Volume 79fL (79-100) 79fL (79-100) Mean Corpuscular Hemoglobin 25pg (25-35) 24pg (25-35) Mean Corpuscular Hemoglobin Concent 31g/dL (31-37) 30g/dL (31-37) Red Cell Distribution Width 17.4% (11.5-14.5) 17.5% (11.5-14.5) Platelet Count 234x10^3/uL (140-400) 245x10^3/uL (140-400) Neutrophils (%) (Auto) 78% (31-73) 73% (31-73) Lymphocytes (%) (Auto) 11% (24-48) 14% (24-48) Monocytes (%) (Auto) 11% (0-9) 13% (0-9) Eosinophils (%) (Auto) 0% (0-3) 0% (0-3) Basophils (%) (Auto) 0% (0-3) 0% (0-3) Neutrophils # (Auto) 8.4x10^3uL (1.8-7.7) 8.2x10^3uL (1.8-7.7) Lymphocytes # (Auto) 1.2x10^3/uL (1.0-4.8) 1.6x10^3/uL (1.0-4.8) Monocytes # (Auto) 1.2x10^3/uL (0.0-1.1) 1.4x10^3/uL (0.0-1.1) Eosinophils # (Auto) 0.0x10^3/uL (0.0-0.7) 0.0x10^3/uL (0.0-0.7) Basophils # (Auto) 0.0x10^3/uL (0.0-0.2) 0.0x10^3/uL (0.0-0.2) Sodium Level 134mmol/L (136-145) 134mmol/L (136-145) 136mmol/L (136-145) Potassium Level 5.1mmol/L (3.5-5.1) 5.1mmol/L (3.5-5.1) 5.3mmol/L (3.5-5.1) Chloride Level 98mmol/L (98-107) 96mmol/L (98-107) 97mmol/L (98-107) Carbon Dioxide Level 32mmol/L (21-32) 30mmol/L (21-32) 32mmol/L (21-32) Anion Gap 4 (6-14) 8 (6-14) 7 (6-14) Blood Urea Nitrogen 32mg/dL (8-26) 31mg/dL (8-26) 20mg/dL (8-26) Creatinine 1.1mg/dL (0.7-1.3) 1.1mg/dL (0.7-1.3) 0.9mg/dL (0.7-1.3) Estimated GFR (Cockcroft-Gault) 69.8 69.8 87.9 Glucose Level 107mg/dL (70-99) 66mg/dL (70-99) 90mg/dL (70-99) Calcium Level 8.5mg/dL (8.5-10.1) 8.4mg/dL (8.5-10.1) 8.6mg/dL (8.5-10.1) Total Bilirubin 0.5mg/dL (0.2-1.0) Direct Bilirubin 0.1mg/dL (0.0-0.2) Aspartate Amino Transf (AST/SGOT) 30U/L (15-37) Alanine Aminotransferase (ALT/SGPT) 35U/L (16-63) Alkaline Phosphatase 57U/L (46-116) Troponin I Quantitative 0.061ng/mL (0.000-0.055) 0.046ng/mL (0.000-0.055) 0.044ng/mL (0.000-0.055) VC-Mys-W-Type Natriuretic Peptide 3349pg/mL (0-124) Total Protein 6.0g/dL (6.4-8.2) Albumin 3.1g/dL (3.4-5.0) Lipase 65U/L (73-393) Hemoglobin A1c 6.0% (4.8-5.6) Triglycerides Level 81mg/dL (0-150) Cholesterol Level 117mg/dL (0-200) LDL Cholesterol, Calculated 74mg/dL (0-100) VLDL Cholesterol, Calculated 16mg/dL (0-40) HDL Cholesterol 27mg/dL (40-60) Cholesterol/HDL Ratio 4.3 Thyroid Stimulating Hormone (TSH) 0.974uIU/mL (0.358-3.74) Laboratory Tests Test 08/21/16 09:02 Sodium Level 136mmol/L (136-145) Potassium Level 5.3mmol/L (3.5-5.1) Chloride Level 97mmol/L (98-107) Carbon Dioxide Level 32mmol/L (21-32) Anion Gap 7 (6-14) Blood Urea Nitrogen 20mg/dL (8-26) Creatinine 0.9mg/dL (0.7-1.3) Estimated GFR (Cockcroft-Gault) 87.9 Glucose Level 90mg/dL (70-99) Calcium Level 8.6mg/dL (8.5-10.1) Medications Active Scripts Medications Dose Route/Sig Days Date Category Aspirin 325 Mg Tablet 1 Tab PO DAILY 08/19/16 Reported Atenolol 25 Mg Tablet 1 Tab PO DAILY 08/19/16 Reported Enalapril Maleate 20 Mg Tablet 1 Tab PO BID 08/19/16 Reported Impression . 1. Acute hypoxic respiratory failure, I suspect secondary to multifactorial etiologies including weight gain of 20 pounds and suspected right and left heart failure. 2. Marked obesity with chronic hypercapnia, suspect underlying obesity hypoventilation syndrome and suspected obstructive sleep apnea. 3. History of myocardial infarction in 2006 and coronary artery disease. This will need an echo to rule out LV dysfunction and assess for pulmonary hypertension. 4. Weight gain of 20 pounds in the last 4 days, also contributing to his symptoms. 5. Abnormal chest x-ray consistent with congestive heart failure. Plan . 1. Continue with present diuresis, may give extra IV Lasix today 2. Continue with oxygen, gradually weaning oxygen down to keep saturation 92% and above. 3. Follow up chest x-ray in am 4. Obtain echocardiogram to assess for left ventricular dysfunction and to rule out pulmonary hypertension. 5. The patient would benefit from outpatient sleep study. 6. Weight loss is advised to the patient. 7. Discussed with RN. ELLA XAVIER MD Aug 21, 2016 09:50
[2016-08-21] MEDS ORDERED: FUROSEMIDE 40 MG/4 ML VIAL IVP ONE (10:00)
[2016-08-21 11:04] VITALS: BP 122/85
--- NOTE | 2016-08-21 12:22 | PDOC ---
PROGRESS NOTES Chief Complaint Chief Complaint CC: Shortness of breath 1. CHF - new 2. A fib 3. CAD 4. HTN 5. HLP 6. Morbid obesity 7. Hypoglycemia 8. Tobaccoism 9. Sleep apnea 10. Venous insufficiency History of Present Illness History of Present Illness Pt sitting up at side of the bed this AM. Admits to some SOA but improved since admission. Also admits to some weakness and dizziness with standing. Otherwise improved per his report. ELAINE RN- VSS; Echo ordered for today still pending Vitals Vitals Vital Signs Date Time Temp Pulse Resp B/P Pulse Ox O2 Delivery O2 Flow Rate FiO2 08/21/16 12:02 91 Nasal Cannula 5.0 08/21/16 11:04 97.8 101 24 122/85 97.8 Physical Exam General: Alert, Oriented X3, Cooperative, No acute distress Heart: No murmurs, Other (AFIB- rate controlled; irregular rate) Lungs: Clear, Other (no wheezing) Abdomen: Normal bowel sounds, Soft, No tenderness Extremities: No cyanosis, Other (4+ bilateral LE pitting edema; lymphedema) Skin: No breakdown, Other (RLE venous stasis lesion- Dressing in place) Labs LABS Laboratory Tests Test 08/21/16 09:02 White Blood Count 10.1x10^3/uL (4.0-11.0) Red Blood Count 6.13x10^6/uL (4.30-5.70) Hemoglobin 14.9g/dL (13.0-17.5) Hematocrit 48.2% (39.0-53.0) Mean Corpuscular Volume 79fL (79-100) Mean Corpuscular Hemoglobin 24pg (25-35) Mean Corpuscular Hemoglobin Concent 31g/dL (31-37) Red Cell Distribution Width 17.5% (11.5-14.5) Platelet Count 172x10^3/uL (140-400) Neutrophils (%) (Auto) 79% (31-73) Lymphocytes (%) (Auto) 9% (24-48) Monocytes (%) (Auto) 12% (0-9) Eosinophils (%) (Auto) 0% (0-3) Basophils (%) (Auto) 0% (0-3) Neutrophils # (Auto) 8.0x10^3uL (1.8-7.7) Lymphocytes # (Auto) 0.9x10^3/uL (1.0-4.8) Monocytes # (Auto) 1.2x10^3/uL (0.0-1.1) Eosinophils # (Auto) 0.0x10^3/uL (0.0-0.7) Basophils # (Auto) 0.0x10^3/uL (0.0-0.2) Sodium Level 136mmol/L (136-145) Potassium Level 5.3mmol/L (3.5-5.1) Chloride Level 97mmol/L (98-107) Carbon Dioxide Level 32mmol/L (21-32) Anion Gap 7 (6-14) Blood Urea Nitrogen 20mg/dL (8-26) Creatinine 0.9mg/dL (0.7-1.3) Estimated GFR (Cockcroft-Gault) 87.9 Glucose Level 90mg/dL (70-99) Calcium Level 8.6mg/dL (8.5-10.1) Review of Systems Review of Systems Complaining of SOA Complaining of Weakness Complaining of Dizziness All other ROS Negative Assessment and Plan Assessmemt and Plan Problems Medical Problems: (1) Atrial fibrillation Status: Acute (2) CHF exacerbation Status: Acute (3) Dyspnea Status: Acute (4) Hypoxia Status: Acute (5) Obesity Status: Acute 1. CHF - new onset 2. A fib 3. CAD 4. HTN 5. HLP 6. Morbid obesity 7. Hypoglycemia 8. Tobaccoism 9. Sleep apnea 10. Venous insufficiency Plan: - Continue Care per regular floor protocol - Cardiology Consulted appreciate recommendations - continue Lasix and Dig - titrated Cardizem for rate controll of afib - Echo and further recommendations pending Pulmonology is following - Continue Diuresis and 02 - Recommended for outpatient sleep study on discharge - Continue Lymphedema treatment- appreciate specialist help on case - Continue wound care - Repeat labs in AM - PTOT to eval and treat - Started on Eliquis per Cardio - Continue home meds - Dispo: Further Work-ups pending Problems: Comment Review of Relevant I have reviewed the following items johnna (where applicable) has been applied. Labs Laboratory Tests Test 08/19/16 13:30 08/19/16 20:30 08/20/16 02:30 08/21/16 09:02 White Blood Count 10.8x10^3/uL (4.0-11.0) 11.3x10^3/uL (4.0-11.0) 10.1x10^3/uL (4.0-11.0) Red Blood Count 5.55x10^6/uL (4.30-5.70) 6.03x10^6/uL (4.30-5.70) 6.13x10^6/uL (4.30-5.70) Hemoglobin 13.7g/dL (13.0-17.5) 14.5g/dL (13.0-17.5) 14.9g/dL (13.0-17.5) Hematocrit 43.6% (39.0-53.0) 47.8% (39.0-53.0) 48.2% (39.0-53.0) Mean Corpuscular Volume 79fL (79-100) 79fL (79-100) 79fL (79-100) Mean Corpuscular Hemoglobin 25pg (25-35) 24pg (25-35) 24pg (25-35) Mean Corpuscular Hemoglobin Concent 31g/dL (31-37) 30g/dL (31-37) 31g/dL (31-37) Red Cell Distribution Width 17.4% (11.5-14.5) 17.5% (11.5-14.5) 17.5% (11.5-14.5) Platelet Count 234x10^3/uL (140-400) 245x10^3/uL (140-400) 172x10^3/uL (140-400) Neutrophils (%) (Auto) 78% (31-73) 73% (31-73) 79% (31-73) Lymphocytes (%) (Auto) 11% (24-48) 14% (24-48) 9% (24-48) Monocytes (%) (Auto) 11% (0-9) 13% (0-9) 12% (0-9) Eosinophils (%) (Auto) 0% (0-3) 0% (0-3) 0% (0-3) Basophils (%) (Auto) 0% (0-3) 0% (0-3) 0% (0-3) Neutrophils # (Auto) 8.4x10^3uL (1.8-7.7) 8.2x10^3uL (1.8-7.7) 8.0x10^3uL (1.8-7.7) Lymphocytes # (Auto) 1.2x10^3/uL (1.0-4.8) 1.6x10^3/uL (1.0-4.8) 0.9x10^3/uL (1.0-4.8) Monocytes # (Auto) 1.2x10^3/uL (0.0-1.1) 1.4x10^3/uL (0.0-1.1) 1.2x10^3/uL (0.0-1.1) Eosinophils # (Auto) 0.0x10^3/uL (0.0-0.7) 0.0x10^3/uL (0.0-0.7) 0.0x10^3/uL (0.0-0.7) Basophils # (Auto) 0.0x10^3/uL (0.0-0.2) 0.0x10^3/uL (0.0-0.2) 0.0x10^3/uL (0.0-0.2) Sodium Level 134mmol/L (136-145) 134mmol/L (136-145) 136mmol/L (136-145) Potassium Level 5.1mmol/L (3.5-5.1) 5.1mmol/L (3.5-5.1) 5.3mmol/L (3.5-5.1) Chloride Level 98mmol/L (98-107) 96mmol/L (98-107) 97mmol/L (98-107) Carbon Dioxide Level 32mmol/L (21-32) 30mmol/L (21-32) 32mmol/L (21-32) Anion Gap 4 (6-14) 8 (6-14) 7 (6-14) Blood Urea Nitrogen 32mg/dL (8-26) 31mg/dL (8-26) 20mg/dL (8-26) Creatinine 1.1mg/dL (0.7-1.3) 1.1mg/dL (0.7-1.3) 0.9mg/dL (0.7-1.3) Estimated GFR (Cockcroft-Gault) 69.8 69.8 87.9 Glucose Level 107mg/dL (70-99) 66mg/dL (70-99) 90mg/dL (70-99) Calcium Level 8.5mg/dL (8.5-10.1) 8.4mg/dL (8.5-10.1) 8.6mg/dL (8.5-10.1) Total Bilirubin 0.5mg/dL (0.2-1.0) Direct Bilirubin 0.1mg/dL (0.0-0.2) Aspartate Amino Transf (AST/SGOT) 30U/L (15-37) Alanine Aminotransferase (ALT/SGPT) 35U/L (16-63) Alkaline Phosphatase 57U/L (46-116) Troponin I Quantitative 0.061ng/mL (0.000-0.055) 0.046ng/mL (0.000-0.055) 0.044ng/mL (0.000-0.055) MB-Pyh-E-Type Natriuretic Peptide 3349pg/mL (0-124) Total Protein 6.0g/dL (6.4-8.2) Albumin 3.1g/dL (3.4-5.0) Lipase 65U/L (73-393) Hemoglobin A1c 6.0% (4.8-5.6) Triglycerides Level 81mg/dL (0-150) Cholesterol Level 117mg/dL (0-200) LDL Cholesterol, Calculated 74mg/dL (0-100) VLDL Cholesterol, Calculated 16mg/dL (0-40) HDL Cholesterol 27mg/dL (40-60) Cholesterol/HDL Ratio 4.3 Thyroid Stimulating Hormone (TSH) 0.974uIU/mL (0.358-3.74) Laboratory Tests Test 08/21/16 09:02 White Blood Count 10.1x10^3/uL (4.0-11.0) Red Blood Count 6.13x10^6/uL (4.30-5.70) Hemoglobin 14.9g/dL (13.0-17.5) Hematocrit 48.2% (39.0-53.0) Mean Corpuscular Volume 79fL (79-100) Mean Corpuscular Hemoglobin 24pg (25-35) Mean Corpuscular Hemoglobin Concent 31g/dL (31-37) Red Cell Distribution Width 17.5% (11.5-14.5) Platelet Count 172x10^3/uL (140-400) Neutrophils (%) (Auto) 79% (31-73) Lymphocytes (%) (Auto) 9% (24-48) Monocytes (%) (Auto) 12% (0-9) Eosinophils (%) (Auto) 0% (0-3) Basophils (%) (Auto) 0% (0-3) Neutrophils # (Auto) 8.0x10^3uL (1.8-7.7) Lymphocytes # (Auto) 0.9x10^3/uL (1.0-4.8) Monocytes # (Auto) 1.2x10^3/uL (0.0-1.1) Eosinophils # (Auto) 0.0x10^3/uL (0.0-0.7) Basophils # (Auto) 0.0x10^3/uL (0.0-0.2) Sodium Level 136mmol/L (136-145) Potassium Level 5.3mmol/L (3.5-5.1) Chloride Level 97mmol/L (98-107) Carbon Dioxide Level 32mmol/L (21-32) Anion Gap 7 (6-14) Blood Urea Nitrogen 20mg/dL (8-26) Creatinine 0.9mg/dL (0.7-1.3) Estimated GFR (Cockcroft-Gault) 87.9 Glucose Level 90mg/dL (70-99) Calcium Level 8.6mg/dL (8.5-10.1) Medications Current Medications Albuterol/ Ipratropium (Duoneb) 3 ml 1X ONCE NEB Last administered on 13:29; Start 08/19/16 at 13:00; Stop 08/19/16 at 15:13; Status DC Furosemide (Lasix) 40 mg 1X ONCE IVP Last administered on 08/19/16 16:30; Start 08/19/16 at 14:15; Stop 08/19/16 at 15:13; Status DC Aspirin (Children'S Aspirin) 324 mg 1X ONCE PO Last administered on 08/19/16 16:29; Start 08/19/16 at 14:15; Stop 08/19/16 at 15:13; Status DC Ondansetron HCl (Zofran) 4 mg PRN Q8HRS PRN IV NAUSEA/VOMITING; Start 08/19/16 at 14:30; Stop 08/20/16 at 14:29; Status DC Morphine Sulfate 2 mg PRN Q2HR PRN IV PAIN; Start 08/19/16 at 14:30; Stop 08/20 at 14:29; Status DC Digoxin 500 mcg 500 mcg 1X ONCE IV Last administered on 08/20/16 09:51; Start 08/20/16 at 09:00; Stop 08/20/16 at 09:01; Status DC Diltiazem HCl/ Dextrose (Cardizem) 125 ml @ 0 mls/hr CONT PRN IV SEE I/O RECORD Last administered on 08/20/16 09:52; Start 08/20/16 at 08:45 Diltiazem HCl (Cardizem) 10 mg 1X ONCE IVP Last administered on 08/20/16 09: 51; Start 08/20/16 at 09:00; Stop 08/20/16 at 09:01; Status DC Aspirin (Ecotrin) 81 mg [id number] PO Last administered on 08/21/16 09:28; Start 08/20/16 at 10:00 Famotidine (Pepcid) 20 mg QHS PO Last administered on 08/20/16 22:22; Start at 21:00 Furosemide (Lasix) 40 mg DAILY PO Last administered on 08/21/16 09:28; Start 08/20/16 at 10:00 Lisinopril (Prinivil) 10 mg DAILY PO Last administered on 08/21/16 09:29; Start 08/20/16 at 10:00 Furosemide (Lasix) 40 mg BID92 PO ; Start 08/20/16 at 10:00; Stop 08/20/16 at 16 :20; Status DC Apixaban (Eliquis) 5 mg BID PO Last administered on 08/21/16 09:28; Start at 11:00 Furosemide (Lasix) 40 mg 1X ONCE IVP Last administered on 08/20/16 12:35; Start 08/20/16 at 12:00; Stop 08/20/16 at 12:01; Status DC Albuterol/ Ipratropium (Duoneb) 3 ml RTQID NEB Last administered on 08/21/16 12:01; Start 08/20/16 at 16:00 Diltiazem HCl (Cardizem 24hr Cd) 240 mg 1X ONCE PO Last administered on 22:22; Start 08/20/16 at 22:15; Stop 08/20/16 at 22:16; Status DC Furosemide (Lasix) 40 mg 1X ONCE IVP ; Start 08/21/16 at 10:00; Stop 08/21/16 at 10:01; Status DC Active Scripts Active Reported Aspirin 325 Mg Tablet 1 Tab PO DAILY Atenolol 25 Mg Tablet 1 Tab PO DAILY Enalapril Maleate 20 Mg Tablet 1 Tab PO BID Vitals/I & O Vital Sign - Last 24 Hours 08/20/16 08/20/16 08/20/16 08/20/16 12:34 13:00 14:00 15:00 Pulse 108 120 106 112 B/P 153/86 142/78 170/85 184/77 08/20/16 08/20/16 08/20/16 08/20/16 15:08 15:18 16:00 17:00 Temp 97.5 97.5 Pulse 134 100 92 Resp 20 B/P 184/77 98/58 166/86 Pulse Ox 95 91 O2 Delivery Nasal Cannula Nasal Cannula O2 Flow Rate 4.0 08/20/16 08/20/16 08/20/16 08/20/16 18:00 18:22 19:10 20:00 Temp 97.4 97.4 Pulse 116 103 Resp 22 B/P 119/104 144/86 Pulse Ox 91 O2 Delivery Nasal Cannula Nasal Cannula Nasal Cannula O2 Flow Rate 4.0 5.0 4.0 08/20/16 08/20/16 08/21/16 08/21/16 22:22 23:46 03:50 07:30 Temp 97.1 97.7 97.1 97.7 Pulse 118 98 115 Resp 18 18 B/P 139/75 133/80 Pulse Ox 88 93 93 O2 Delivery Nasal Cannula Nasal Cannula Nasal Cannula O2 Flow Rate 5.0 5.0 4.5 08/21/16 08/21/16 08/21/16 08/21/16 07:48 08:00 09:29 11:04 Temp 97.4 97.8 97.4 97.8 Pulse 110 110 101 Resp 22 24 B/P 168/103 168/103 122/85 Pulse Ox 92 91 O2 Delivery Nasal Cannula Nasal Cannula Nasal Cannula O2 Flow Rate 4.0 08/21/16 12:02 Pulse Ox 91 O2 Delivery Nasal Cannula O2 Flow Rate 5.0 Intake and Output 08/20/16 08/20/16 08/21/16 15:00 23:00 07:00 Intake Total 420 ml Output Total 1350 ml 2350 ml 2150 ml Balance -1350 ml -2350 ml -1730 ml BRITTNEY LAMB III DO Aug 21, 2016 12:22
[2016-08-21 15:12] VITALS: BP 112/65
[2016-08-21] MEDS: ANTI-COAG MONITOR BY PHARMACY. MC PRN (16:12)
--- NOTE | 2016-08-21 17:18 | PDOC ---
PROGRESS NOTES Subjective Subjective C/o dyspnea and edema Objective Objective Vital Signs Date Time Temp Pulse Resp B/P Pulse Ox O2 Delivery O2 Flow Rate FiO2 08/21/16 16:16 92 Nasal Cannula 5.0 08/21/16 15:12 98.2 107 20 112/65 98.2 Intake and Output 08/21/16 07:00 Intake Total 420 ml Output Total 5850 ml Balance -5430 ml Intake Oral 420 ml Output Urine Total 5850 ml Physical Exam Abdomen: Normal bowel sounds, Soft, No tenderness Heart: No murmurs, Other (AFIB- rate controlled; irregular rate) Extremities: No cyanosis, Other (4+ bilateral LE pitting edema; lymphedema) General: Alert, Oriented X3, Cooperative, No acute distress HEENT: Atraumatic, Mucous membr. moist/pink Lungs: Other (diminished with diuffse basilar wheeze) Neuro: Normal speech, Sensation intact Psych/Mental Status: Mental status NL Skin: No breakdown, Other (RLE venous stasis lesion- Dressing in place) Assessment Assessment 1. Acute CHF with possible diastolic dysfunction: New. Likely induced by uncontrolled AFIB. Inadequate diuresis with PO diuretics. Patient does not have IV access at this time. Plan for placing PICC line and diurese with IV lasix. 2. AFIB RVR: new onset, HR still elevated. Continue PO cardizem and add digoxin. Continue eliquis for stroke prophylaxis. Records from Dr. Franco's office pending. 3. CAD: IN/PCI/stent 2005. CP free, last stress test 2-3 yrs ago 4. HTN: controlled 5. DM-2: treat per IM Plan Plan of Care Problems Medical Problems: (1) Atrial fibrillation Status: Acute (2) CHF exacerbation Status: Acute (3) Dyspnea Status: Acute (4) Hypoxia Status: Acute (5) Obesity Status: Acute Comment Review of Relevant I have reviewed the following items johnna (where applicable) has been applied. Labs Laboratory Tests Test 08/21/16 09:02 White Blood Count 10.1x10^3/uL (4.0-11.0) Red Blood Count 6.13x10^6/uL (4.30-5.70) Hemoglobin 14.9g/dL (13.0-17.5) Hematocrit 48.2% (39.0-53.0) Mean Corpuscular Volume 79fL (79-100) Mean Corpuscular Hemoglobin 24pg (25-35) Mean Corpuscular Hemoglobin Concent 31g/dL (31-37) Red Cell Distribution Width 17.5% (11.5-14.5) Platelet Count 172x10^3/uL (140-400) Neutrophils (%) (Auto) 79% (31-73) Lymphocytes (%) (Auto) 9% (24-48) Monocytes (%) (Auto) 12% (0-9) Eosinophils (%) (Auto) 0% (0-3) Basophils (%) (Auto) 0% (0-3) Neutrophils # (Auto) 8.0x10^3uL (1.8-7.7) Lymphocytes # (Auto) 0.9x10^3/uL (1.0-4.8) Monocytes # (Auto) 1.2x10^3/uL (0.0-1.1) Eosinophils # (Auto) 0.0x10^3/uL (0.0-0.7) Basophils # (Auto) 0.0x10^3/uL (0.0-0.2) Sodium Level 136mmol/L (136-145) Potassium Level 5.3mmol/L (3.5-5.1) Chloride Level 97mmol/L (98-107) Carbon Dioxide Level 32mmol/L (21-32) Anion Gap 7 (6-14) Blood Urea Nitrogen 20mg/dL (8-26) Creatinine 0.9mg/dL (0.7-1.3) Estimated GFR (Cockcroft-Gault) 87.9 Glucose Level 90mg/dL (70-99) Calcium Level 8.6mg/dL (8.5-10.1) Medications Current Medications Diltiazem HCl (Cardizem 24hr Cd) 240 mg 1X ONCE PO Last administered on 22:22; Start 08/20/16 at 22:15; Stop 08/20/16 at 22:16; Status DC Famotidine (Pepcid) 20 mg QHS PO Last administered on 08/20/16 22:22; Start at 21:00 Furosemide (Lasix) 40 mg 1X ONCE IVP ; Start 08/21/16 at 10:00; Stop 08/21/16 at 10:01; Status DC Info (Anti-Coagulation Monitoring By Pharmacy) 1 each PRN DAILY PRN MC SEE COMMENTS Last administered on 08/21/16t 16:12; Start 08/21/16 at 16:15 Vitals/I & O Vital Sign - Last 24 Hours 08/20/16 08/20/16 08/20/16 08/20/16 18:00 18:22 19:10 20:00 Temp 97.4 97.4 Pulse 116 103 Resp 22 B/P 119/104 144/86 Pulse Ox 91 O2 Delivery Nasal Cannula Nasal Cannula Nasal Cannula O2 Flow Rate 4.0 5.0 4.0 08/20/16 08/20/16 08/21/16 08/21/16 22:22 23:46 03:50 07:30 Temp 97.1 97.7 97.1 97.7 Pulse 118 98 115 Resp 18 18 B/P 139/75 133/80 Pulse Ox 88 93 93 O2 Delivery Nasal Cannula Nasal Cannula Nasal Cannula O2 Flow Rate 5.0 5.0 4.5 08/21/16 08/21/16 08/21/16 08/21/16 07:48 08:00 09:29 11:04 Temp 97.4 97.8 97.4 97.8 Pulse 110 110 101 Resp 22 24 B/P 168/103 168/103 122/85 Pulse Ox 92 91 O2 Delivery Nasal Cannula Nasal Cannula Nasal Cannula O2 Flow Rate 4.0 08/21/16 08/21/16 08/21/16 12:02 15:12 16:16 Temp 98.2 98.2 Pulse 107 Resp 20 B/P 112/65 Pulse Ox 91 90 92 O2 Delivery Nasal Cannula Nasal Cannula Nasal Cannula O2 Flow Rate 5.0 5.0 Intake and Output 08/20/16 08/20/16 08/21/16 15:00 23:00 07:00 Intake Total 420 ml Output Total 1350 ml 2350 ml 2150 ml Balance -1350 ml -2350 ml -1730 ml RADHA BANERJEE MD Aug 21, 2016 17:18
[2016-08-21] MEDS ORDERED: DIGOXIN 250 MCG TABLET PO ONE (17:30)
[2016-08-21 19:20] VITALS: BP 145/83
[2016-08-21] MEDS: FAMOTIDINE 20 MG TABLET. PO SCH (21:38)
[2016-08-21 23:15] VITALS: BP 150/78
[2016-08-22 03:24] VITALS: BP 138/96
[2016-08-22 04:57] LABS: BASO % 0 % (0-3); EOS % 0 % (0-3); HEMATOCRIT 41.4 % (39.0-53.0); HEMOGLOBIN 12.6 g/dL (13.0-17.5); LYMPH % 9 % (24-48); MEAN CORPUSCULAR HEMOGLOBIN 24 pg (25-35); MEAN CORPUSCULAR HGB CONC 31 g/dL (31-37); MEAN CORPUSCULAR VOLUME 79 fL (79-100); MONO % 14 % (0-9); NEUT % 76 % (31-73); PLATELET COUNT 197 x10^3/uL (140-400); RED BLOOD COUNT 5.27 x10^6/uL (4.30-5.70); RED CELL DISTRIBUTION WIDTH 17.4 % (11.5-14.5); WHITE BLOOD COUNT 10.5 x10^3/uL (4.0-11.0)
[2016-08-22 05:03] LABS: CALCIUM 8.3 mg/dL (8.5-10.1); CREATININE 0.8 mg/dL (0.7-1.3); GFR 100.7; POTASSIUM 4.7 mmol/L (3.5-5.1)
[2016-08-22 07:00] VITALS: BP 160/95
[2016-08-22] MEDS: IPRATRPIUM/ALBUTEROL 0.5/2.5MG 3 ML NEBU. NEB SCH ×4 (08:00→19:10)
[2016-08-22] MEDS: DIGOXIN 125 MCG TABLET PO SCH (08:48)
[2016-08-22] MEDS: LISINOPRIL 10 MG TABLET PO SCH (08:49)
[2016-08-22] MEDS: ASPIRIN ENTERIC COATED 81 MG TABLET.DR. PO SCH (08:49)
[2016-08-22] MEDS ORDERED: DILTIAZEM HCL 240 MG CAP.ER.24H PO SCH (09:00)
[2016-08-22] MEDS: APIXABAN 5 MG TABLET. PO SCH ×2 (09:00→20:58)
[2016-08-22] MEDS ORDERED: MAGNESIUM SULFATE 2GM 50 ML IV ONE (09:30)
[2016-08-22] MEDS: ANTI-COAG MONITOR BY PHARMACY. MC PRN (10:19)
[2016-08-22] MEDS ORDERED: SULFUR HEXAFLUORIDE MICROSPHR 25 MG VIAL. IVP ONE ×2 (10:30→10:32)
--- NOTE | 2016-08-22 10:50 | PDOC ---
PROGRESS NOTES Chief Complaint Chief Complaint CC: Shortness of breath 1. CHF - new 2. A fib 3. CAD 4. HTN 5. HLP 6. Morbid obesity 7. Hypoglycemia 8. Tobaccoism 9. Sleep apnea 10. Venous insufficiency History of Present Illness History of Present Illness Pt sitting up at side of bed this morning. He admits to cough this AM with some SOA at times. Discussed plan for further work-up with Echo of heart later this morning. ELAINE RN- Several runs of VTach- Cardio paged; Vitals Vitals Vital Signs Date Time Temp Pulse Resp B/P Pulse Ox O2 Delivery O2 Flow Rate FiO2 08/22/16 08:49 112 160/95 08/22/16 07:56 Nasal Cannula 4.0 08/22/16 07:00 98.5 20 90 98.5 Physical Exam General: Alert, Oriented X3, Cooperative, No acute distress Heart: No murmurs, Other (AFIB- w/ RVR; irregular rate) Lungs: Other (Bilateral Coarse Breath Sounds; no wheezes) Abdomen: Normal bowel sounds, Soft, No tenderness Extremities: No cyanosis, Other (4+ bilateral LE pitting edema; lymphedema) Skin: No significant lesion, Other (RLE venous stasis lesion- Dressing in place with compression stockings) Labs LABS Laboratory Tests Test 08/22/16 03:40 White Blood Count 10.5x10^3/uL (4.0-11.0) Red Blood Count 5.27x10^6/uL (4.30-5.70) Hemoglobin 12.6g/dL (13.0-17.5) Hematocrit 41.4% (39.0-53.0) Mean Corpuscular Volume 79fL (79-100) Mean Corpuscular Hemoglobin 24pg (25-35) Mean Corpuscular Hemoglobin Concent 31g/dL (31-37) Red Cell Distribution Width 17.4% (11.5-14.5) Platelet Count 197x10^3/uL (140-400) Neutrophils (%) (Auto) 76% (31-73) Lymphocytes (%) (Auto) 9% (24-48) Monocytes (%) (Auto) 14% (0-9) Eosinophils (%) (Auto) 0% (0-3) Basophils (%) (Auto) 0% (0-3) Neutrophils # (Auto) 8.0x10^3uL (1.8-7.7) Lymphocytes # (Auto) 1.0x10^3/uL (1.0-4.8) Monocytes # (Auto) 1.5x10^3/uL (0.0-1.1) Eosinophils # (Auto) 0.0x10^3/uL (0.0-0.7) Basophils # (Auto) 0.0x10^3/uL (0.0-0.2) Sodium Level 135mmol/L (136-145) Potassium Level 4.7mmol/L (3.5-5.1) Chloride Level 95mmol/L (98-107) Carbon Dioxide Level 38mmol/L (21-32) Anion Gap 2 (6-14) Blood Urea Nitrogen 14mg/dL (8-26) Creatinine 0.8mg/dL (0.7-1.3) Estimated GFR (Cockcroft-Gault) 100.7 Glucose Level 98mg/dL (70-99) Calcium Level 8.3mg/dL (8.5-10.1) Magnesium Level 1.7mg/dL (1.8-2.4) Review of Systems Review of Systems Complaining of Cough Complaining of Shortness of Air Denies any new CP All other ROS negative Assessment and Plan Assessmemt and Plan Problems Medical Problems: (1) Atrial fibrillation Status: Acute (2) CHF exacerbation Status: Acute (3) Dyspnea Status: Acute (4) Hypoxia Status: Acute (5) Obesity Status: Acute 1. CHF - new onset 2. A fib 3. CAD 4. HTN 5. HLP 6. Morbid obesity 7. Hypoglycemia 8. Tobaccoism 9. Sleep apnea 10. Venous insufficiency Plan: - Continue Care per regular floor protocol - Cardiology Consulted appreciate recommendations - continue Lasix and Dig - Continue titrating Cardizem for rate controll of afib - PICC placed on 08/21/2016 for access - Echo this AM (08/22/2016) - RN reported several runs of Vtach- Cardio Paged (08/22/2016) - Await further recommendations pending results Pulmonology is following - Continue Diuresis and 02 - Recommended for outpatient sleep study on discharge - Continue Lymphedema treatment- appreciate specialist help on case - Continue regular wound care - Repeat labs in AM - Continue PTOT to eval and treat - Started on Eliquis per Cardio - Continue home meds - Magnesium: 1.7 - Will replace with Magnesium Sulfate - ELAINE RN: pt having several Runs of VTa- Cardiology paged; Magnesium 1.7- Problems: Comment Review of Relevant I have reviewed the following items johnna (where applicable) has been applied. Labs Laboratory Tests Test 08/21/16 09:02 08/22/16 03:40 White Blood Count 10.1x10^3/uL (4.0-11.0) 10.5x10^3/uL (4.0-11.0) Red Blood Count 6.13x10^6/uL (4.30-5.70) 5.27x10^6/uL (4.30-5.70) Hemoglobin 14.9g/dL (13.0-17.5) 12.6g/dL (13.0-17.5) Hematocrit 48.2% (39.0-53.0) 41.4% (39.0-53.0) Mean Corpuscular Volume 79fL (79-100) 79fL (79-100) Mean Corpuscular Hemoglobin 24pg (25-35) 24pg (25-35) Mean Corpuscular Hemoglobin Concent 31g/dL (31-37) 31g/dL (31-37) Red Cell Distribution Width 17.5% (11.5-14.5) 17.4% (11.5-14.5) Platelet Count 172x10^3/uL (140-400) 197x10^3/uL (140-400) Neutrophils (%) (Auto) 79% (31-73) 76% (31-73) Lymphocytes (%) (Auto) 9% (24-48) 9% (24-48) Monocytes (%) (Auto) 12% (0-9) 14% (0-9) Eosinophils (%) (Auto) 0% (0-3) 0% (0-3) Basophils (%) (Auto) 0% (0-3) 0% (0-3) Neutrophils # (Auto) 8.0x10^3uL (1.8-7.7) 8.0x10^3uL (1.8-7.7) Lymphocytes # (Auto) 0.9x10^3/uL (1.0-4.8) 1.0x10^3/uL (1.0-4.8) Monocytes # (Auto) 1.2x10^3/uL (0.0-1.1) 1.5x10^3/uL (0.0-1.1) Eosinophils # (Auto) 0.0x10^3/uL (0.0-0.7) 0.0x10^3/uL (0.0-0.7) Basophils # (Auto) 0.0x10^3/uL (0.0-0.2) 0.0x10^3/uL (0.0-0.2) Sodium Level 136mmol/L (136-145) 135mmol/L (136-145) Potassium Level 5.3mmol/L (3.5-5.1) 4.7mmol/L (3.5-5.1) Chloride Level 97mmol/L (98-107) 95mmol/L (98-107) Carbon Dioxide Level 32mmol/L (21-32) 38mmol/L (21-32) Anion Gap 7 (6-14) 2 (6-14) Blood Urea Nitrogen 20mg/dL (8-26) 14mg/dL (8-26) Creatinine 0.9mg/dL (0.7-1.3) 0.8mg/dL (0.7-1.3) Estimated GFR (Cockcroft-Gault) 87.9 100.7 Glucose Level 90mg/dL (70-99) 98mg/dL (70-99) Calcium Level 8.6mg/dL (8.5-10.1) 8.3mg/dL (8.5-10.1) Magnesium Level 1.7mg/dL (1.8-2.4) Laboratory Tests Test 08/22/16 03:40 White Blood Count 10.5x10^3/uL (4.0-11.0) Red Blood Count 5.27x10^6/uL (4.30-5.70) Hemoglobin 12.6g/dL (13.0-17.5) Hematocrit 41.4% (39.0-53.0) Mean Corpuscular Volume 79fL (79-100) Mean Corpuscular Hemoglobin 24pg (25-35) Mean Corpuscular Hemoglobin Concent 31g/dL (31-37) Red Cell Distribution Width 17.4% (11.5-14.5) Platelet Count 197x10^3/uL (140-400) Neutrophils (%) (Auto) 76% (31-73) Lymphocytes (%) (Auto) 9% (24-48) Monocytes (%) (Auto) 14% (0-9) Eosinophils (%) (Auto) 0% (0-3) Basophils (%) (Auto) 0% (0-3) Neutrophils # (Auto) 8.0x10^3uL (1.8-7.7) Lymphocytes # (Auto) 1.0x10^3/uL (1.0-4.8) Monocytes # (Auto) 1.5x10^3/uL (0.0-1.1) Eosinophils # (Auto) 0.0x10^3/uL (0.0-0.7) Basophils # (Auto) 0.0x10^3/uL (0.0-0.2) Sodium Level 135mmol/L (136-145) Potassium Level 4.7mmol/L (3.5-5.1) Chloride Level 95mmol/L (98-107) Carbon Dioxide Level 38mmol/L (21-32) Anion Gap 2 (6-14) Blood Urea Nitrogen 14mg/dL (8-26) Creatinine 0.8mg/dL (0.7-1.3) Estimated GFR (Cockcroft-Gault) 100.7 Glucose Level 98mg/dL (70-99) Calcium Level 8.3mg/dL (8.5-10.1) Magnesium Level 1.7mg/dL (1.8-2.4) Medications Current Medications Albuterol/ Ipratropium (Duoneb) 3 ml 1X ONCE NEB Last administered on 13:29; Start 08/19/16 at 13:00; Stop 08/19/16 at 15:13; Status DC Furosemide (Lasix) 40 mg 1X ONCE IVP Last administered on 08/19/16 16:30; Start 08/19/16 at 14:15; Stop 08/19/16 at 15:13; Status DC Aspirin (Children'S Aspirin) 324 mg 1X ONCE PO Last administered on 08/19/16 16:29; Start 08/19/16 at 14:15; Stop 08/19/16 at 15:13; Status DC Ondansetron HCl (Zofran) 4 mg PRN Q8HRS PRN IV NAUSEA/VOMITING; Start 08/19/16 at 14:30; Stop 08/20/16 at 14:29; Status DC Morphine Sulfate 2 mg PRN Q2HR PRN IV PAIN; Start 08/19/16 at 14:30; Stop 08/20 at 14:29; Status DC Digoxin 500 mcg 500 mcg 1X ONCE IV Last administered on 08/20/16 09:51; Start 08/20/16 at 09:00; Stop 08/20/16 at 09:01; Status DC Diltiazem HCl/ Dextrose (Cardizem) 125 ml @ 0 mls/hr CONT PRN IV SEE I/O RECORD Last administered on 08/20/16 09:52; Start 08/20/16 at 08:45; Stop 08/21 at 17:20; Status DC Diltiazem HCl (Cardizem) 10 mg 1X ONCE IVP Last administered on 08/20/16 09: 51; Start 08/20/16 at 09:00; Stop 08/20/16 at 09:01; Status DC Aspirin (Ecotrin) 81 mg [id number] PO Last administered on 08/22/16 08:49; Start 08/20/16 at 10:00 Famotidine (Pepcid) 20 mg QHS PO Last administered on 08/21/16 21:38; Start at 21:00 Furosemide (Lasix) 40 mg DAILY PO Last administered on 08/21/16 09:28; Start 08/20/16 at 10:00; Stop 08/21/16 at 17:24; Status DC Lisinopril (Prinivil) 10 mg DAILY PO Last administered on 08/22/16 08:49; Start 08/20/16 at 10:00 Furosemide (Lasix) 40 mg BID92 PO ; Start 08/20/16 at 10:00; Stop 08/20/16 at 16 :20; Status DC Apixaban (Eliquis) 5 mg BID PO Last administered on 08/21/16 21:38; Start at 11:00 Furosemide (Lasix) 40 mg 1X ONCE IVP Last administered on 08/20/16 12:35; Start 08/20/16 at 12:00; Stop 08/20/16 at 12:01; Status DC Albuterol/ Ipratropium (Duoneb) 3 ml RTQID NEB Last administered on 08/21/16 19:51; Start 08/20/16 at 16:00 Diltiazem HCl (Cardizem 24hr Cd) 240 mg 1X ONCE PO Last administered on 22:22; Start 08/20/16 at 22:15; Stop 08/20/16 at 22:16; Status DC Furosemide (Lasix) 40 mg 1X ONCE IVP ; Start 08/21/16 at 10:00; Stop 08/21/16 at 10:01; Status DC Info (Anti-Coagulation Monitoring By Pharmacy) 1 each PRN DAILY PRN MC SEE COMMENTS Last administered on 08/22/16 10:19; Start 08/21/16 at 16:15 Diltiazem HCl (Cardizem 24hr Cd) 240 mg DAILY PO Last administered on 08:49; Start 08/22/16 at 09:00 Digoxin (Lanoxin) 500 mcg 1X ONCE PO Last administered on 08/21/16 18:22; Start 08/21/16 at 17:30; Stop 08/21/16 at 17:31; Status DC Digoxin (Lanoxin) 125 mcg DAILY PO Last administered on 08/22/16 08:48; Start 08/22/16 at 09:00 Furosemide 40 mg 40 mg BID92 IVP ; Start 08/22/16 at 09:00 Magnesium Sulfate/ Dextrose (Magnesium Sulfate PREMIX 2GM) 50 ml @ 25 mls/hr 1X ONCE IV ; Start 08/22/16 at 09:30; Stop 08/22/16 at 11:29 Sulfur Hexafluoride Microspheres (Lumason) 25 mg STK-MED ONCE IVP ; Start at 10:32; Stop 08/22/16 at 10:33; Status DC Active Scripts Active Reported Aspirin 325 Mg Tablet 1 Tab PO DAILY Atenolol 25 Mg Tablet 1 Tab PO DAILY Enalapril Maleate 20 Mg Tablet 1 Tab PO BID Vitals/I & O Vital Sign - Last 24 Hours 08/21/16 08/21/16 08/21/16 08/21/16 11:04 12:02 15:12 16:16 Temp 97.8 98.2 97.8 98.2 Pulse 101 107 Resp 24 20 B/P 122/85 112/65 Pulse Ox 91 91 90 92 O2 Delivery Nasal Cannula Nasal Cannula Nasal Cannula Nasal Cannula O2 Flow Rate 5.0 5.0 08/21/16 08/21/16 08/21/16 08/21/16 18:22 19:20 19:51 20:00 Temp 98.2 98.2 Pulse 107 110 Resp 20 B/P 112/65 145/83 Pulse Ox 95 92 O2 Delivery Nasal Cannula Nasal Cannula Nasal Cannula O2 Flow Rate 4.0 5.0 4.0 08/21/16 08/22/16 08/22/16 08/22/16 23:15 03:24 07:00 07:56 Temp 98.2 98.6 98.5 98.2 98.6 98.5 Pulse 118 117 112 Resp 20 20 B/P 150/78 138/96 160/95 Pulse Ox 91 90 90 O2 Delivery Nasal Cannula Nasal Cannula Nasal Cannula Nasal Cannula O2 Flow Rate 4.0 4.0 5.0 4.0 08/22/16 08/22/16 08/22/16 08:48 08:49 08:49 Pulse 112 112 112 B/P 160/95 160/95 160/95 Intake and Output 08/21/16 08/21/16 08/22/16 15:00 23:00 07:00 Intake Total 700 ml 0 ml Output Total 800 ml 500 ml 500 ml Balance -800 ml 200 ml -500 ml CASTLE,NIAL K III DO Aug 22, 2016 10:50
[2016-08-22 11:30] VITALS: BP 155/95
--- NOTE | 2016-08-22 13:07 | PDOC ---
LAUREN ROBERTSON PROGRAM MANAGEMENT SPECIALIST 08/22/16 1306: CARDIO Progress Notes Date and Time Date of Service 08/22/16 Time of Evaluation 1305 Subjective Subjective: No Chest Pain, No shortness of breath, No Palpitations Vitals Vitals Vital Signs Date Time Temp Pulse Resp B/P Pulse Ox O2 Delivery O2 Flow Rate FiO2 08/22/16 12:18 94 Nasal Cannula 5.0 08/22/16 11:30 97.8 101 24 155/95 97.8 Weight Weight [ ] Input and Output Intake and Output Intake and Output 08/22/16 07:00 Intake Total 700 ml Output Total 1800 ml Balance -1100 ml Intake Oral 700 ml Output Urine Total 1800 ml Laboratory Labs Laboratory Tests Test 08/22/16 03:40 White Blood Count 10.5x10^3/uL (4.0-11.0) Red Blood Count 5.27x10^6/uL (4.30-5.70) Hemoglobin 12.6g/dL (13.0-17.5) Hematocrit 41.4% (39.0-53.0) Mean Corpuscular Volume 79fL (79-100) Mean Corpuscular Hemoglobin 24pg (25-35) Mean Corpuscular Hemoglobin Concent 31g/dL (31-37) Red Cell Distribution Width 17.4% (11.5-14.5) Platelet Count 197x10^3/uL (140-400) Neutrophils (%) (Auto) 76% (31-73) Lymphocytes (%) (Auto) 9% (24-48) Monocytes (%) (Auto) 14% (0-9) Eosinophils (%) (Auto) 0% (0-3) Basophils (%) (Auto) 0% (0-3) Neutrophils # (Auto) 8.0x10^3uL (1.8-7.7) Lymphocytes # (Auto) 1.0x10^3/uL (1.0-4.8) Monocytes # (Auto) 1.5x10^3/uL (0.0-1.1) Eosinophils # (Auto) 0.0x10^3/uL (0.0-0.7) Basophils # (Auto) 0.0x10^3/uL (0.0-0.2) Sodium Level 135mmol/L (136-145) Potassium Level 4.7mmol/L (3.5-5.1) Chloride Level 95mmol/L (98-107) Carbon Dioxide Level 38mmol/L (21-32) Anion Gap 2 (6-14) Blood Urea Nitrogen 14mg/dL (8-26) Creatinine 0.8mg/dL (0.7-1.3) Estimated GFR (Cockcroft-Gault) 100.7 Glucose Level 98mg/dL (70-99) Calcium Level 8.3mg/dL (8.5-10.1) Magnesium Level 1.7mg/dL (1.8-2.4) Physical Exam HEENT: Neck Supple W Full Motion LUNGS: Other (diminished bases ) Heart: S1S2, irregularly irregular, other (distant heart tones) Abdomen: Other (obese ) Extremities: Other (4+ bilateral LE edema. LE erythema ) Neurology: alert, oriented, other (drowsy- falling asleep during examination) Assessment Assessment 1. Acute probable diastolic HF echo to assess LV function pending. inadequate UOP with oral lasix- midline now placed; resume IV diuresis non-compliant 2. AFIB RVR, ? new onset HR better controlled with addition of digoxin, but remains slightly elevated. will increase Cardizem for better rate control. Eliquis for stroke prophylaxis. No records obtained from Dr. Franco's office- will have re-faxed JETT contributing factors? pt appears not interested in workup. 3. Acute respiratory failure per pulm 4. CAD PCI/stent 2005. stalbe. CP free 5. HTN labile increase cardizem 6. DM-2 per PCP 7. Obesity ? hypoventilation syndrome/JETT RADHA BANERJEE MD 08/22/162058: CARDIO Progress Notes Assessment Assessment Patient seen and examined. Agree with PLANT FACILITIES TECHNICIAN's assessment and plan. Continue intravenous lasix for acute on chronic diastolic heart failure. Agree with increasing cardizem dose for better atrial fib rate control. CAD status stable. LAUREN ROBERTSON APRN Aug 22, 2016 13:06 RADHA BANERJEE MD Aug 22, 2016 20:59
[2016-08-22] MEDS: FUROSEMIDE 40 MG/4 ML VIAL IVP SCH ×2 (13:53→17:57)
--- NOTE | 2016-08-22 13:53 | PDOC ---
PULMONARY PROGRESS NOTES Subjective feels better Vitals Vital Signs Date Time Temp Pulse Resp B/P Pulse Ox O2 Delivery O2 Flow Rate FiO2 08/22/16 12:18 94 Nasal Cannula 5.0 08/22/16 11:30 97.8 101 24 155/95 97.8 ROS: No Nausea, No Chest Pain, No Abdominal Pain Lungs: Other (Bilateral Coarse Breath Sounds; no wheezes) Cardiovascular: S1 Abdomen: Soft, Other (obese) Neuro Exam: Alert Extremities: Other (2+edema) Labs Laboratory Tests Test 08/21/16 09:02 08/22/16 03:40 White Blood Count 10.1x10^3/uL (4.0-11.0) 10.5x10^3/uL (4.0-11.0) Red Blood Count 6.13x10^6/uL (4.30-5.70) 5.27x10^6/uL (4.30-5.70) Hemoglobin 14.9g/dL (13.0-17.5) 12.6g/dL (13.0-17.5) Hematocrit 48.2% (39.0-53.0) 41.4% (39.0-53.0) Mean Corpuscular Volume 79fL (79-100) 79fL (79-100) Mean Corpuscular Hemoglobin 24pg (25-35) 24pg (25-35) Mean Corpuscular Hemoglobin Concent 31g/dL (31-37) 31g/dL (31-37) Red Cell Distribution Width 17.5% (11.5-14.5) 17.4% (11.5-14.5) Platelet Count 172x10^3/uL (140-400) 197x10^3/uL (140-400) Neutrophils (%) (Auto) 79% (31-73) 76% (31-73) Lymphocytes (%) (Auto) 9% (24-48) 9% (24-48) Monocytes (%) (Auto) 12% (0-9) 14% (0-9) Eosinophils (%) (Auto) 0% (0-3) 0% (0-3) Basophils (%) (Auto) 0% (0-3) 0% (0-3) Neutrophils # (Auto) 8.0x10^3uL (1.8-7.7) 8.0x10^3uL (1.8-7.7) Lymphocytes # (Auto) 0.9x10^3/uL (1.0-4.8) 1.0x10^3/uL (1.0-4.8) Monocytes # (Auto) 1.2x10^3/uL (0.0-1.1) 1.5x10^3/uL (0.0-1.1) Eosinophils # (Auto) 0.0x10^3/uL (0.0-0.7) 0.0x10^3/uL (0.0-0.7) Basophils # (Auto) 0.0x10^3/uL (0.0-0.2) 0.0x10^3/uL (0.0-0.2) Sodium Level 136mmol/L (136-145) 135mmol/L (136-145) Potassium Level 5.3mmol/L (3.5-5.1) 4.7mmol/L (3.5-5.1) Chloride Level 97mmol/L (98-107) 95mmol/L (98-107) Carbon Dioxide Level 32mmol/L (21-32) 38mmol/L (21-32) Anion Gap 7 (6-14) 2 (6-14) Blood Urea Nitrogen 20mg/dL (8-26) 14mg/dL (8-26) Creatinine 0.9mg/dL (0.7-1.3) 0.8mg/dL (0.7-1.3) Estimated GFR (Cockcroft-Gault) 87.9 100.7 Glucose Level 90mg/dL (70-99) 98mg/dL (70-99) Calcium Level 8.6mg/dL (8.5-10.1) 8.3mg/dL (8.5-10.1) Magnesium Level 1.7mg/dL (1.8-2.4) Laboratory Tests Test 08/22/16 03:40 White Blood Count 10.5x10^3/uL (4.0-11.0) Red Blood Count 5.27x10^6/uL (4.30-5.70) Hemoglobin 12.6g/dL (13.0-17.5) Hematocrit 41.4% (39.0-53.0) Mean Corpuscular Volume 79fL (79-100) Mean Corpuscular Hemoglobin 24pg (25-35) Mean Corpuscular Hemoglobin Concent 31g/dL (31-37) Red Cell Distribution Width 17.4% (11.5-14.5) Platelet Count 197x10^3/uL (140-400) Neutrophils (%) (Auto) 76% (31-73) Lymphocytes (%) (Auto) 9% (24-48) Monocytes (%) (Auto) 14% (0-9) Eosinophils (%) (Auto) 0% (0-3) Basophils (%) (Auto) 0% (0-3) Neutrophils # (Auto) 8.0x10^3uL (1.8-7.7) Lymphocytes # (Auto) 1.0x10^3/uL (1.0-4.8) Monocytes # (Auto) 1.5x10^3/uL (0.0-1.1) Eosinophils # (Auto) 0.0x10^3/uL (0.0-0.7) Basophils # (Auto) 0.0x10^3/uL (0.0-0.2) Sodium Level 135mmol/L (136-145) Potassium Level 4.7mmol/L (3.5-5.1) Chloride Level 95mmol/L (98-107) Carbon Dioxide Level 38mmol/L (21-32) Anion Gap 2 (6-14) Blood Urea Nitrogen 14mg/dL (8-26) Creatinine 0.8mg/dL (0.7-1.3) Estimated GFR (Cockcroft-Gault) 100.7 Glucose Level 98mg/dL (70-99) Calcium Level 8.3mg/dL (8.5-10.1) Magnesium Level 1.7mg/dL (1.8-2.4) Medications Active Scripts Medications Dose Route/Sig Days Date Category Aspirin 325 Mg Tablet 1 Tab PO DAILY 08/19/16 Reported Atenolol 25 Mg Tablet 1 Tab PO DAILY 08/19/16 Reported Enalapril Maleate 20 Mg Tablet 1 Tab PO BID 08/19/16 Reported Impression . 1. Acute hypoxic respiratory failure, I suspect secondary to multifactorial etiologies including weight gain of 20 pounds and suspected right and left heart failure. 2. Marked obesity with chronic hypercapnia, suspect underlying obesity hypoventilation syndrome and suspected obstructive sleep apnea. 3. History of myocardial infarction in 2006 and coronary artery disease. This will need an echo to rule out LV dysfunction and assess for pulmonary hypertension. 4. Weight gain of 20 pounds in the last 4 days, also contributing to his symptoms. 5. Abnormal chest x-ray consistent with congestive heart failure. Plan . 1. Needs aggressive diuresis, IV Lasix per cardiology 2. Continue with oxygen, gradually weaning oxygen down to keep saturation 92% and above. 3. Follow up chest x-ray 4. Obtain echocardiogram to assess for left ventricular dysfunction and to rule out pulmonary hypertension. 5. The patient would benefit from outpatient sleep study. 6. Weight loss is advised to the patient. 7. Discussed with RN. ELLA XAVIER MD Aug 22, 2016 13:53
[2016-08-22 15:55] VITALS: BP 135/79
[2016-08-22 19:50] VITALS: BP 147/66
[2016-08-22] MEDS: FAMOTIDINE 20 MG TABLET. PO SCH (20:58)
[2016-08-22 23:40] VITALS: BP 123/68
[2016-08-23] VITALS (7 sets, daily range): BP systolic 113–145; BP diastolic 63–81
[2016-08-23 04:01] LABS: BASO % 0 % (0-3); EOS % 1 % (0-3); HEMATOCRIT 41.4 % (39.0-53.0); HEMOGLOBIN 12.6 g/dL (13.0-17.5); LYMPH % 11 % (24-48); MEAN CORPUSCULAR HEMOGLOBIN 24 pg (25-35); MEAN CORPUSCULAR HGB CONC 31 g/dL (31-37); MEAN CORPUSCULAR VOLUME 78 fL (79-100); MONO % 14 % (0-9); NEUT % 74 % (31-73); PLATELET COUNT 203 x10^3/uL (140-400); RED BLOOD COUNT 5.31 x10^6/uL (4.30-5.70); WHITE BLOOD COUNT 9.6 x10^3/uL (4.0-11.0)
[2016-08-23 04:14] LABS: CALCIUM 8.6 mg/dL (8.5-10.1); CREATININE 0.7 mg/dL (0.7-1.3); GFR 117.5; POTASSIUM 4.6 mmol/L (3.5-5.1)
[2016-08-23] MEDS: IPRATRPIUM/ALBUTEROL 0.5/2.5MG 3 ML NEBU. NEB SCH ×4 (07:43→19:02)
--- NOTE | 2016-08-23 07:47 | CARD ---
APPROVED REPORT EXAM: Two-dimensional and M-mode echocardiogram with Doppler and color Doppler. Other Information Quality : LimitedHR: 97bpm Rhythm : NSRAtrial Fibrillation INDICATION Atrial Fibrillation Echo Enhancing Agent Indication: Endocardial border delineation Agent/Amount Used: Lumason 4mL RISK FACTORS Obesity 2D DIMENSIONS RVDd3.5 (2.9-3.5cm)Left Atrium(2D)4.8 (1.6-4.0cm) IVSd1.7 (0.7-1.1cm)Aortic Root(2D)4.1 (2.0-3.7cm) LVDd6.0 (3.9-5.9cm)LVOT Diameter2.5 (1.8-2.4cm) PWd1.3 (0.7-1.1cm)LVDs5.2 (2.5-4.0cm) FS (%) 13.5 %SV50.4 ml LVEF(%)28.4 (>50%) Aortic Valve AoV Peak Trino.130.3cm/sAoV VTI19.5cm AO Peak GR.6.8mmHgLVOT Peak Trino.94.4cm/s AO Mean GR.4mmHgAVA (VMAX)3.58cm2 Mitral Valve MV E Peak Gr.11mmHgMV E Mean Gr.4mmHg Pulmonary Valve PV Peak Cibncrsh088.6cm/s Tricuspid Valve TR P. [id number] Peak Gr.53mmHg LEFT VENTRICLE The Left Ventricle is mildly dilated. There is moderate concentric left ventricular hypertrophy. Left ventricle systolic function is moderately to severely impaired. The Ejection Fraction is 30-35%. The re is severe hypokinesis in the basal through mid inferosrptal wall. The inferior wall appears severe ly hypokinetic as well. All othe mayers appear moderately hypokinetic. Unable to assess the left ventr icular diastolic function due to atrial fibrillation. No left ventricle thrombus noted on this study. AORTIC VALVE The aortic valve is not well visualized. Doppler and Color Flow revealed no significant aortic regurg itation. There is no significant aortic valvular stenosis. MITRAL VALVE The mitral valve is not well visualized. There is no evidence of mitral valve prolapse. There is no m itral valve stenosis. Doppler and Color Flow revealed no mitral valve regurgitation noted. TRICUSPID VALVE Doppler and Color Flow revealed mild tricuspid regurgitation.The pulmonary artery systolic pressure i s estimated at 58 mmHg. There is moderate pulmonary hypertension. PULMONIC VALVE The pulmonic valve is not well visualized. Doppler and Color Flow revealed no pulmonic valvular regur gitation. There is no pulmonic valvular stenosis. GREAT VESSELS Not well visualized. The IVC was not visualized. PERICARDIAL EFFUSION There is no evidence of significant pericardial effusion. Critical Notification Critical Value: No <Conclusion> Left ventricle systolic function is moderately to severely impaired. The Ejection Fraction is 30-35%. There is severe hypokinesis in the basal through mid inferosrptal wall. The inferior wall appears sev erely hypokinetic as well. All othe mayers appear moderately hypokinetic. Doppler and Color Flow revealed mild tricuspid regurgitation.The pulmonary artery systolic pressure i s estimated at 58 mmHg. There is moderate pulmonary hypertension. Severely limited images due to body habitus despite contrast use. Consider REBECA if clinically indicated.
[2016-08-23] MEDS: FUROSEMIDE 40 MG/4 ML VIAL IVP SCH ×2 (08:10→14:20)
[2016-08-23] MEDS: DIGOXIN 125 MCG TABLET PO SCH (08:11)
[2016-08-23] MEDS: LISINOPRIL 10 MG TABLET PO SCH (08:12)
[2016-08-23] MEDS: APIXABAN 5 MG TABLET. PO SCH ×2 (08:13→21:59)
[2016-08-23] MEDS: DILTIAZEM HCL 300 MG CAP.ER.24H PO SCH (08:13)
[2016-08-23] MEDS: ASPIRIN ENTERIC COATED 81 MG TABLET.DR. PO SCH (08:13)
--- NOTE | 2016-08-23 09:53 | PDOC ---
PULMONARY PROGRESS NOTES Subjective pt not more soa Vitals Vital Signs Date Time Temp Pulse Resp B/P Pulse Ox O2 Delivery O2 Flow Rate FiO2 08/23/16 08:13 80 136/61 08/23/16 07:48 96 Nasal Cannula 4.0 08/23/16 07:26 98.0 22 98.0 ROS: No Nausea, No Chest Pain, No Abdominal Pain Lungs: Clear Cardiovascular: S1 Abdomen: Soft, Other (obese) Neuro Exam: Alert Extremities: Other (2+edema) Skin: Warm Labs Laboratory Tests Test 08/22/16 03:40 08/23/16 03:38 White Blood Count 10.5x10^3/uL (4.0-11.0) 9.6x10^3/uL (4.0-11.0) Red Blood Count 5.27x10^6/uL (4.30-5.70) 5.31x10^6/uL (4.30-5.70) Hemoglobin 12.6g/dL (13.0-17.5) 12.6g/dL (13.0-17.5) Hematocrit 41.4% (39.0-53.0) 41.4% (39.0-53.0) Mean Corpuscular Volume 79fL (79-100) 78fL (79-100) Mean Corpuscular Hemoglobin 24pg (25-35) 24pg (25-35) Mean Corpuscular Hemoglobin Concent 31g/dL (31-37) 31g/dL (31-37) Red Cell Distribution Width 17.4% (11.5-14.5) 17.0% (11.5-14.5) Platelet Count 197x10^3/uL (140-400) 203x10^3/uL (140-400) Neutrophils (%) (Auto) 76% (31-73) 74% (31-73) Lymphocytes (%) (Auto) 9% (24-48) 11% (24-48) Monocytes (%) (Auto) 14% (0-9) 14% (0-9) Eosinophils (%) (Auto) 0% (0-3) 1% (0-3) Basophils (%) (Auto) 0% (0-3) 0% (0-3) Neutrophils # (Auto) 8.0x10^3uL (1.8-7.7) 7.1x10^3uL (1.8-7.7) Lymphocytes # (Auto) 1.0x10^3/uL (1.0-4.8) 1.0x10^3/uL (1.0-4.8) Monocytes # (Auto) 1.5x10^3/uL (0.0-1.1) 1.3x10^3/uL (0.0-1.1) Eosinophils # (Auto) 0.0x10^3/uL (0.0-0.7) 0.1x10^3/uL (0.0-0.7) Basophils # (Auto) 0.0x10^3/uL (0.0-0.2) 0.0x10^3/uL (0.0-0.2) Sodium Level 135mmol/L (136-145) 138mmol/L (136-145) Potassium Level 4.7mmol/L (3.5-5.1) 4.6mmol/L (3.5-5.1) Chloride Level 95mmol/L (98-107) 96mmol/L (98-107) Carbon Dioxide Level 38mmol/L (21-32) 42mmol/L (21-32) Anion Gap 2 (6-14) 0 (6-14) Blood Urea Nitrogen 14mg/dL (8-26) 11mg/dL (8-26) Creatinine 0.8mg/dL (0.7-1.3) 0.7mg/dL (0.7-1.3) Estimated GFR (Cockcroft-Gault) 100.7 117.5 Glucose Level 98mg/dL (70-99) 101mg/dL (70-99) Calcium Level 8.3mg/dL (8.5-10.1) 8.6mg/dL (8.5-10.1) Magnesium Level 1.7mg/dL (1.8-2.4) Laboratory Tests Test 08/23/16 03:38 White Blood Count 9.6x10^3/uL (4.0-11.0) Red Blood Count 5.31x10^6/uL (4.30-5.70) Hemoglobin 12.6g/dL (13.0-17.5) Hematocrit 41.4% (39.0-53.0) Mean Corpuscular Volume 78fL (79-100) Mean Corpuscular Hemoglobin 24pg (25-35) Mean Corpuscular Hemoglobin Concent 31g/dL (31-37) Red Cell Distribution Width 17.0% (11.5-14.5) Platelet Count 203x10^3/uL (140-400) Neutrophils (%) (Auto) 74% (31-73) Lymphocytes (%) (Auto) 11% (24-48) Monocytes (%) (Auto) 14% (0-9) Eosinophils (%) (Auto) 1% (0-3) Basophils (%) (Auto) 0% (0-3) Neutrophils # (Auto) 7.1x10^3uL (1.8-7.7) Lymphocytes # (Auto) 1.0x10^3/uL (1.0-4.8) Monocytes # (Auto) 1.3x10^3/uL (0.0-1.1) Eosinophils # (Auto) 0.1x10^3/uL (0.0-0.7) Basophils # (Auto) 0.0x10^3/uL (0.0-0.2) Sodium Level 138mmol/L (136-145) Potassium Level 4.6mmol/L (3.5-5.1) Chloride Level 96mmol/L (98-107) Carbon Dioxide Level 42mmol/L (21-32) Anion Gap 0 (6-14) Blood Urea Nitrogen 11mg/dL (8-26) Creatinine 0.7mg/dL (0.7-1.3) Estimated GFR (Cockcroft-Gault) 117.5 Glucose Level 101mg/dL (70-99) Calcium Level 8.6mg/dL (8.5-10.1) Medications Active Scripts Medications Dose Route/Sig Days Date Category Aspirin 325 Mg Tablet 1 Tab PO DAILY 08/19/16 Reported Atenolol 25 Mg Tablet 1 Tab PO DAILY 08/19/16 Reported Enalapril Maleate 20 Mg Tablet 1 Tab PO BID 08/19/16 Reported Impression . 1. Acute hypoxic respiratory failure, multifactorial 2. Marked obesity with chronic hypercapnia, suspect underlying obesity hypoventilation syndrome and suspected obstructive sleep apnea. 3. History of myocardial infarction in 2006 and coronary artery disease. 4. Weight gain of 20 pounds in the last 4 days, also contributing to his symptoms. 5. Abnormal chest x-ray consistent with congestive heart failure. ECHO Left ventricle systolic function is moderately to severely impaired. The Ejection Fraction is 30-35%. There is severe hypokinesis in the basal through mid inferosrptal wall. The inferior wall appears severely hypokinetic as well. All othe mayers appear moderately hypokinetic. Doppler and Color Flow revealed mild tricuspid regurgitation.The pulmonary artery systolic pressure is estimated at 58 mmHg. There is moderate pulmonary hypertension. Severely limited images due to body habitus despite contrast use. Consider REBECA if clinically indicated. Plan . 1. diurese 2. o2 3. Follow up chest x-ray 4. Echo report noted 5. outpt sleep study 6. Weight loss is advised to the patient. DEVONTE HONEYCUTT MD Aug 23, 2016 09:53
--- NOTE | 2016-08-23 15:16 | PDOC ---
PROGRESS NOTES Chief Complaint Chief Complaint CC: Shortness of breath 1. CHF - new 2. A fib 3. CAD 4. HTN 5. HLP 6. Morbid obesity 7. Hypoglycemia 8. Tobaccoism 9. Sleep apnea 10. Venous insufficiency on eliquis lasix 40mg iv bid, diuresis well pt denies sob, but on o2 NC 4L ,new to him asked him to ambulate and see if sob fell today, no injury History of Present Illness History of Present Illness Pt sitting up at side of bed this morning. He admits to cough this AM with some SOA at times. Discussed plan for further work-up with Echo of heart later this morning. ELAINE RN- Several runs of [place]- Cardio paged; Vitals Vitals Vital Signs Date Time Temp Pulse Resp B/P Pulse Ox O2 Delivery O2 Flow Rate FiO2 08/23/16 11:47 93 Nasal Cannula 4.0 08/23/16 11:37 97.9 99 20 113/76 97.9 Physical Exam General: Alert, Oriented X3, Cooperative, No acute distress Heart: No murmurs, Other (AFIB- w/ RVR; irregular rate) Lungs: Other (Bilateral Coarse Breath Sounds; no wheezes) Abdomen: Normal bowel sounds, Soft, No tenderness Extremities: No cyanosis, Other (4+ bilateral LE pitting edema; lymphedema) Skin: No significant lesion, Other (RLE venous stasis lesion- Dressing in place with compression stockings) Labs LABS Laboratory Tests Test 08/23/16 03:38 White Blood Count 9.6x10^3/uL (4.0-11.0) Red Blood Count 5.31x10^6/uL (4.30-5.70) Hemoglobin 12.6g/dL (13.0-17.5) Hematocrit 41.4% (39.0-53.0) Mean Corpuscular Volume 78fL (79-100) Mean Corpuscular Hemoglobin 24pg (25-35) Mean Corpuscular Hemoglobin Concent 31g/dL (31-37) Red Cell Distribution Width 17.0% (11.5-14.5) Platelet Count 203x10^3/uL (140-400) Neutrophils (%) (Auto) 74% (31-73) Lymphocytes (%) (Auto) 11% (24-48) Monocytes (%) (Auto) 14% (0-9) Eosinophils (%) (Auto) 1% (0-3) Basophils (%) (Auto) 0% (0-3) Neutrophils # (Auto) 7.1x10^3uL (1.8-7.7) Lymphocytes # (Auto) 1.0x10^3/uL (1.0-4.8) Monocytes # (Auto) 1.3x10^3/uL (0.0-1.1) Eosinophils # (Auto) 0.1x10^3/uL (0.0-0.7) Basophils # (Auto) 0.0x10^3/uL (0.0-0.2) Sodium Level 138mmol/L (136-145) Potassium Level 4.6mmol/L (3.5-5.1) Chloride Level 96mmol/L (98-107) Carbon Dioxide Level 42mmol/L (21-32) Anion Gap 0 (6-14) Blood Urea Nitrogen 11mg/dL (8-26) Creatinine 0.7mg/dL (0.7-1.3) Estimated GFR (Cockcroft-Gault) 117.5 Glucose Level 101mg/dL (70-99) Calcium Level 8.6mg/dL (8.5-10.1) Review of Systems Review of Systems no fever, chills, chest pain Assessment and Plan Assessmemt and Plan Problems Medical Problems: (1) Atrial fibrillation Status: Acute (2) CHF exacerbation Status: Acute (3) Dyspnea Status: Acute (4) Hypoxia Status: Acute (5) Obesity Status: Acute Problems: Comment Review of Relevant I have reviewed the following items johnna (where applicable) has been applied. Labs Laboratory Tests Test 08/22/16 03:40 08/23/16 03:38 White Blood Count 10.5x10^3/uL (4.0-11.0) 9.6x10^3/uL (4.0-11.0) Red Blood Count 5.27x10^6/uL (4.30-5.70) 5.31x10^6/uL (4.30-5.70) Hemoglobin 12.6g/dL (13.0-17.5) 12.6g/dL (13.0-17.5) Hematocrit 41.4% (39.0-53.0) 41.4% (39.0-53.0) Mean Corpuscular Volume 79fL (79-100) 78fL (79-100) Mean Corpuscular Hemoglobin 24pg (25-35) 24pg (25-35) Mean Corpuscular Hemoglobin Concent 31g/dL (31-37) 31g/dL (31-37) Red Cell Distribution Width 17.4% (11.5-14.5) 17.0% (11.5-14.5) Platelet Count 197x10^3/uL (140-400) 203x10^3/uL (140-400) Neutrophils (%) (Auto) 76% (31-73) 74% (31-73) Lymphocytes (%) (Auto) 9% (24-48) 11% (24-48) Monocytes (%) (Auto) 14% (0-9) 14% (0-9) Eosinophils (%) (Auto) 0% (0-3) 1% (0-3) Basophils (%) (Auto) 0% (0-3) 0% (0-3) Neutrophils # (Auto) 8.0x10^3uL (1.8-7.7) 7.1x10^3uL (1.8-7.7) Lymphocytes # (Auto) 1.0x10^3/uL (1.0-4.8) 1.0x10^3/uL (1.0-4.8) Monocytes # (Auto) 1.5x10^3/uL (0.0-1.1) 1.3x10^3/uL (0.0-1.1) Eosinophils # (Auto) 0.0x10^3/uL (0.0-0.7) 0.1x10^3/uL (0.0-0.7) Basophils # (Auto) 0.0x10^3/uL (0.0-0.2) 0.0x10^3/uL (0.0-0.2) Sodium Level 135mmol/L (136-145) 138mmol/L (136-145) Potassium Level 4.7mmol/L (3.5-5.1) 4.6mmol/L (3.5-5.1) Chloride Level 95mmol/L (98-107) 96mmol/L (98-107) Carbon Dioxide Level 38mmol/L (21-32) 42mmol/L (21-32) Anion Gap 2 (6-14) 0 (6-14) Blood Urea Nitrogen 14mg/dL (8-26) 11mg/dL (8-26) Creatinine 0.8mg/dL (0.7-1.3) 0.7mg/dL (0.7-1.3) Estimated GFR (Cockcroft-Gault) 100.7 117.5 Glucose Level 98mg/dL (70-99) 101mg/dL (70-99) Calcium Level 8.3mg/dL (8.5-10.1) 8.6mg/dL (8.5-10.1) Magnesium Level 1.7mg/dL (1.8-2.4) Laboratory Tests Test 08/23/16 03:38 White Blood Count 9.6x10^3/uL (4.0-11.0) Red Blood Count 5.31x10^6/uL (4.30-5.70) Hemoglobin 12.6g/dL (13.0-17.5) Hematocrit 41.4% (39.0-53.0) Mean Corpuscular Volume 78fL (79-100) Mean Corpuscular Hemoglobin 24pg (25-35) Mean Corpuscular Hemoglobin Concent 31g/dL (31-37) Red Cell Distribution Width 17.0% (11.5-14.5) Platelet Count 203x10^3/uL (140-400) Neutrophils (%) (Auto) 74% (31-73) Lymphocytes (%) (Auto) 11% (24-48) Monocytes (%) (Auto) 14% (0-9) Eosinophils (%) (Auto) 1% (0-3) Basophils (%) (Auto) 0% (0-3) Neutrophils # (Auto) 7.1x10^3uL (1.8-7.7) Lymphocytes # (Auto) 1.0x10^3/uL (1.0-4.8) Monocytes # (Auto) 1.3x10^3/uL (0.0-1.1) Eosinophils # (Auto) 0.1x10^3/uL (0.0-0.7) Basophils # (Auto) 0.0x10^3/uL (0.0-0.2) Sodium Level 138mmol/L (136-145) Potassium Level 4.6mmol/L (3.5-5.1) Chloride Level 96mmol/L (98-107) Carbon Dioxide Level 42mmol/L (21-32) Anion Gap 0 (6-14) Blood Urea Nitrogen 11mg/dL (8-26) Creatinine 0.7mg/dL (0.7-1.3) Estimated GFR (Cockcroft-Gault) 117.5 Glucose Level 101mg/dL (70-99) Calcium Level 8.6mg/dL (8.5-10.1) Medications Current Medications Albuterol/ Ipratropium (Duoneb) 3 ml 1X ONCE NEB Last administered on 13:29; Start 08/19/16 at 13:00; Stop 08/19/16 at 15:13; Status DC Furosemide (Lasix) 40 mg 1X ONCE IVP Last administered on 08/19/16 16:30; Start 08/19/16 at 14:15; Stop 08/19/16 at 15:13; Status DC Aspirin (Children'S Aspirin) 324 mg 1X ONCE PO Last administered on 08/19/16 16:29; Start 08/19/16 at 14:15; Stop 08/19/16 at 15:13; Status DC Ondansetron HCl (Zofran) 4 mg PRN Q8HRS PRN IV NAUSEA/VOMITING; Start 08/19/16 at 14:30; Stop 08/20/16 at 14:29; Status DC Morphine Sulfate 2 mg PRN Q2HR PRN IV PAIN; Start 08/19/16 at 14:30; Stop 08/20 at 14:29; Status DC Digoxin 500 mcg 500 mcg 1X ONCE IV Last administered on 08/20/16 09:51; Start 08/20/16 at 09:00; Stop 08/20/16 at 09:01; Status DC Diltiazem HCl/ Dextrose (Cardizem) 125 ml @ 0 mls/hr CONT PRN IV SEE I/O RECORD Last administered on 08/20/16 09:52; Start 08/20/16 at 08:45; Stop 08/21 at 17:20; Status DC Diltiazem HCl (Cardizem) 10 mg 1X ONCE IVP Last administered on 08/20/16 09: 51; Start 08/20/16 at 09:00; Stop 08/20/16 at 09:01; Status DC Aspirin (Ecotrin) 81 mg [id number] PO Last administered on 08/23/16 08:13; Start 08/20/16 at 10:00 Famotidine (Pepcid) 20 mg QHS PO Last administered on 08/22/16 20:58; Start at 21:00 Furosemide (Lasix) 40 mg DAILY PO Last administered on 08/21/16 09:28; Start 08/20/16 at 10:00; Stop 08/21/16 at 17:24; Status DC Lisinopril (Prinivil) 10 mg DAILY PO Last administered on 08/23/16 08:12; Start 08/20/16 at 10:00 Furosemide (Lasix) 40 mg BID92 PO ; Start 08/20/16 at 10:00; Stop 08/20/16 at 16 :20; Status DC Apixaban (Eliquis) 5 mg BID PO Last administered on 08/23/16 08:13; Start at 11:00 Furosemide (Lasix) 40 mg 1X ONCE IVP Last administered on 08/20/16 12:35; Start 08/20/16 at 12:00; Stop 08/20/16 at 12:01; Status DC Albuterol/ Ipratropium (Duoneb) 3 ml RTQID NEB Last administered on 08/23/16 11:43; Start 08/20/16 at 16:00 Diltiazem HCl (Cardizem 24hr Cd) 240 mg 1X ONCE PO Last administered on 22:22; Start 08/20/16 at 22:15; Stop 08/20/16 at 22:16; Status DC Furosemide (Lasix) 40 mg 1X ONCE IVP ; Start 08/21/16 at 10:00; Stop 08/21/16 at 10:01; Status DC Info (Anti-Coagulation Monitoring By Pharmacy) 1 each PRN DAILY PRN MC SEE COMMENTS Last administered on 08/22/16 10:19; Start 08/21/16 at 16:15 Diltiazem HCl (Cardizem 24hr Cd) 240 mg DAILY PO Last administered on 08:49; Start 08/22/16 at 09:00; Stop 08/22/16 at 14:59; Status DC Digoxin (Lanoxin) 500 mcg 1X ONCE PO Last administered on 08/21/16 18:22; Start 08/21/16 at 17:30; Stop 08/21/16 at 17:31; Status DC Digoxin (Lanoxin) 125 mcg DAILY PO Last administered on 08/23/16 08:11; Start 08/22/16 at 09:00 Furosemide 40 mg 40 mg BID92 IVP Last administered on 08/23/16 14:20; Start at 09:00 Magnesium Sulfate/ Dextrose (Magnesium Sulfate PREMIX 2GM) 50 ml @ 25 mls/hr 1X ONCE IV Last administered on 08/22/16 13:54; Start 08/22/16 at 09:30; Stop 08/22/16 at 11:29; Status DC Sulfur Hexafluoride Microspheres (Lumason) 25 mg STK-MED ONCE IVP ; Start at 10:32; Stop 08/22/16 at 10:33; Status DC Diltiazem HCl (Diltiazem 24hr Cd) 300 mg DAILY PO Last administered on 08:13; Start 08/23/16 at 09:00 Sulfur Hexafluoride Microspheres (Lumason) 25 mg STK-MED ONCE IVP ; Start at 10:30; Stop 08/23/16 at 08:40; Status DC Active Scripts Active Reported Aspirin 325 Mg Tablet 1 Tab PO DAILY Atenolol 25 Mg Tablet 1 Tab PO DAILY Enalapril Maleate 20 Mg Tablet 1 Tab PO BID Vitals/I & O Vital Sign - Last 24 Hours 08/22/16 08/22/16 08/22/16 08/22/16 15:55 16:22 19:11 19:50 Temp 97.9 97.9 97.9 97.9 Pulse 94 101 Resp 19 22 B/P 135/79 147/66 Pulse Ox 93 94 92 O2 Delivery Nasal Cannula Nasal Cannula Room Air Nasal Cannula O2 Flow Rate 5.0 5.0 5.0 08/22/16 08/22/16 08/23/16 08/23/16 20:00 23:40 03:30 07:00 Temp 98.3 97.6 98.0 98.3 97.6 98.0 Pulse 101 101 93 Resp 22 22 20 B/P 123/68 115/69 145/77 Pulse Ox 92 94 94 O2 Delivery Nasal Cannula Nasal Cannula Nasal Cannula Nasal Cannula O2 Flow Rate 5.0 5.0 5.0 5.0 08/23/16 08/23/16 08/23/16 08/23/16 07:26 07:26 07:32 07:48 Temp 98.0 98.0 Pulse 100 Resp 22 B/P 145/77 Pulse Ox 94 96 O2 Delivery Nasal Cannula Nasal Cannula Nasal Cannula Nasal Cannula O2 Flow Rate 5.0 5.0 5.0 4.0 08/23/16 08/23/16 08/23/16 08/23/16 08:11 08:12 08:13 11:37 Temp 97.9 97.9 Pulse 80 80 80 99 Resp 20 B/P 136/61 133/61 136/61 113/76 Pulse Ox 93 O2 Delivery Nasal Cannula O2 Flow Rate 4.0 08/23/16 11:47 Pulse Ox 93 O2 Delivery Nasal Cannula O2 Flow Rate 4.0 Intake and Output 08/22/16 08/22/16 08/23/16 15:00 23:00 07:00 Intake Total 180 ml 500 ml Output Total 600 ml 1325 ml 400 ml Balance -420 ml -1325 ml 100 ml DIANA XIONG MD Aug 23, 2016 15:16
[2016-08-23] MEDS: ANTI-COAG MONITOR BY PHARMACY. MC PRN (16:15)
--- NOTE | 2016-08-23 16:18 | PDOC ---
LAUREN ROBERTSON ICT BUSINESS DEVELOPMENT MANAGER 08/23/16 1618: CARDIO Progress Notes Date and Time Date of Service 08/23/16 Time of Evaluation 1300 Subjective Subjective: No Chest Pain, No shortness of breath, No Palpitations, Other ( increased urination) Vitals Vitals Vital Signs Date Time Temp Pulse Resp B/P Pulse Ox O2 Delivery O2 Flow Rate FiO2 08/23/16 11:47 93 Nasal Cannula 4.0 08/23/16 11:37 97.9 99 20 113/76 97.9 Weight Weight [ ] Input and Output Intake and Output Intake and Output 08/23/16 07:00 Intake Total 680 ml Output Total 2325 ml Balance -1645 ml Intake Oral 680 ml Output Urine Total 2325 ml # Voids 2 Laboratory Labs Laboratory Tests Test 08/23/16 03:38 White Blood Count 9.6x10^3/uL (4.0-11.0) Red Blood Count 5.31x10^6/uL (4.30-5.70) Hemoglobin 12.6g/dL (13.0-17.5) Hematocrit 41.4% (39.0-53.0) Mean Corpuscular Volume 78fL (79-100) Mean Corpuscular Hemoglobin 24pg (25-35) Mean Corpuscular Hemoglobin Concent 31g/dL (31-37) Red Cell Distribution Width 17.0% (11.5-14.5) Platelet Count 203x10^3/uL (140-400) Neutrophils (%) (Auto) 74% (31-73) Lymphocytes (%) (Auto) 11% (24-48) Monocytes (%) (Auto) 14% (0-9) Eosinophils (%) (Auto) 1% (0-3) Basophils (%) (Auto) 0% (0-3) Neutrophils # (Auto) 7.1x10^3uL (1.8-7.7) Lymphocytes # (Auto) 1.0x10^3/uL (1.0-4.8) Monocytes # (Auto) 1.3x10^3/uL (0.0-1.1) Eosinophils # (Auto) 0.1x10^3/uL (0.0-0.7) Basophils # (Auto) 0.0x10^3/uL (0.0-0.2) Sodium Level 138mmol/L (136-145) Potassium Level 4.6mmol/L (3.5-5.1) Chloride Level 96mmol/L (98-107) Carbon Dioxide Level 42mmol/L (21-32) Anion Gap 0 (6-14) Blood Urea Nitrogen 11mg/dL (8-26) Creatinine 0.7mg/dL (0.7-1.3) Estimated GFR (Cockcroft-Gault) 117.5 Glucose Level 101mg/dL (70-99) Calcium Level 8.6mg/dL (8.5-10.1) Physical Exam HEENT: Neck Supple W Full Motion LUNGS: Other (diminished bases ) Heart: S1S2, irregularly irregular, other (distant heart tones) Abdomen: Other (obese ) Extremities: Other (3+ bilateral LE edema. LE erythema ) Neurology: alert, oriented, follow commands, other Assessment Assessment 1. Acute systolic HF echo with depressed LV function- EF 30-35%. technically difficulty study due to body habitus. baseline unknown; records received indicates no recent echo. good UOP with lV Lasix- continue with diuresis given abnormal echo, consider ischemic workup in the form of stress test versus cardiac catheterization to r/o ischemic etiology- will d/w primary cardiology. 2. AFIB RVR, new onset rate controlled; continue Cardizem and digoxin Eliquis for stroke prophylaxis. JETT likely contributing factor 3. Acute respiratory failure per pulm 4. CAD PCI/stent 2005. stable. CP free 5. HTN controlled. continue current therapy 6. DM-2 per PCP 7. Obesity ? hypoventilation syndrome/JETT 8. Hypomagnesemia replace RADHA BANERJEE MD 08/24/16 0605: CARDIO Progress Notes Assessment Assessment Patient seen and examined 08/23/16. Agree with TRANSITION MGR's assessment and plan. Acute systolic heart failure better compensated - continue IV lasix. Atrial fib rate better controlled with cardizem and digoxin. In lieu of his history of CAD and diminished LV function, we will plan for cardiac cath and possible PCI once fluid status improves. LAUREN ROBERTSON APRN Aug 23, 2016 16:18 RADHA BANERJEE MD Aug 24, 2016 06:05
[2016-08-23] MEDS ORDERED: MAGNESIUM SULFATE 2GM 50 ML IV ONE (16:30)
[2016-08-23] MEDS: FAMOTIDINE 20 MG TABLET. PO SCH (21:59)
[2016-08-24 03:00] VITALS: BP 119/72
[2016-08-24 06:16] LABS: BASO # 0.1 x10^3/uL (0.0-0.2); BASO % 1 % (0-3); EOS % 1 % (0-3); HEMATOCRIT 38.6 % (39.0-53.0); HEMOGLOBIN 12.1 g/dL (13.0-17.5); LYMPH % 10 % (24-48); MEAN CORPUSCULAR HEMOGLOBIN 24 pg (25-35); MEAN CORPUSCULAR HGB CONC 31 g/dL (31-37); MEAN CORPUSCULAR VOLUME 77 fL (79-100); MONO % 16 % (0-9); NEUT % 73 % (31-73); PLATELET COUNT 200 x10^3/uL (140-400); RED BLOOD COUNT 5.04 x10^6/uL (4.30-5.70); RED CELL DISTRIBUTION WIDTH 17.4 % (11.5-14.5); WHITE BLOOD COUNT 10.2 x10^3/uL (4.0-11.0)
[2016-08-24 06:39] LABS: BLOOD UREA NITROGEN 10 mg/dL (8-26); CALCIUM 8.4 mg/dL (8.5-10.1); CARBON DIOXIDE > 45 mmol/L (21-32); CHLORIDE 96 mmol/L (98-107); CREATININE 0.8 mg/dL (0.7-1.3); GFR 100.7; GLUCOSE 105 mg/dL (70-99); MAGNESIUM 1.8 mg/dL (1.8-2.4); POTASSIUM 4.7 mmol/L (3.5-5.1); SODIUM 139 mmol/L (136-145)
[2016-08-24 07:00] VITALS: BP 136/76
[2016-08-24] MEDS: IPRATRPIUM/ALBUTEROL 0.5/2.5MG 3 ML NEBU. NEB SCH ×4 (07:52→19:52)
[2016-08-24] MEDS: APIXABAN 5 MG TABLET. PO SCH ×2 (09:07→21:47)
[2016-08-24] MEDS: ASPIRIN ENTERIC COATED 81 MG TABLET.DR. PO SCH (09:08)
[2016-08-24] MEDS: DILTIAZEM HCL 300 MG CAP.ER.24H PO SCH (09:08)
[2016-08-24] MEDS: FUROSEMIDE 40 MG/4 ML VIAL IVP SCH ×2 (09:08→16:54)
[2016-08-24] MEDS: DIGOXIN 125 MCG TABLET PO SCH (09:08)
[2016-08-24] MEDS: LISINOPRIL 10 MG TABLET PO SCH (09:08)
[2016-08-24 10:41] VITALS: BP 127/69
--- NOTE | 2016-08-24 11:51 | PDOC ---
LAUREN ROBERTSON EGG PRODUCER 08/24/16 1151: CARDIO Progress Notes Date and Time Date of Service 08/24/16 Time of Evaluation 1045 Subjective Subjective: No Chest Pain, No shortness of breath, No Palpitations, Other ( increased urination) Vitals Vitals Vital Signs Date Time Temp Pulse Resp B/P Pulse Ox O2 Delivery O2 Flow Rate FiO2 08/24/16 11:11 85 Room Air 08/24/16 10:41 98.0 114 22 127/69 98.0 08/24/16 08:00 5.0 Weight Weight [ ] Input and Output Intake and Output Intake and Output 08/24/16 07:00 Intake Total 1160 ml Output Total 5275 ml Balance -4115 ml Intake Oral 1160 ml Output Urine Total 5275 ml # Voids 6 # Bowel Movements 3 Laboratory Labs Laboratory Tests Test 08/24/16 05:50 White Blood Count 10.2x10^3/uL (4.0-11.0) Red Blood Count 5.04x10^6/uL (4.30-5.70) Hemoglobin 12.1g/dL (13.0-17.5) Hematocrit 38.6% (39.0-53.0) Mean Corpuscular Volume 77fL (79-100) Mean Corpuscular Hemoglobin 24pg (25-35) Mean Corpuscular Hemoglobin Concent 31g/dL (31-37) Red Cell Distribution Width 17.4% (11.5-14.5) Platelet Count 200x10^3/uL (140-400) Neutrophils (%) (Auto) 73% (31-73) Lymphocytes (%) (Auto) 10% (24-48) Monocytes (%) (Auto) 16% (0-9) Eosinophils (%) (Auto) 1% (0-3) Basophils (%) (Auto) 1% (0-3) Neutrophils # (Auto) 7.4x10^3uL (1.8-7.7) Lymphocytes # (Auto) 1.0x10^3/uL (1.0-4.8) Monocytes # (Auto) 1.6x10^3/uL (0.0-1.1) Eosinophils # (Auto) 0.1x10^3/uL (0.0-0.7) Basophils # (Auto) 0.1x10^3/uL (0.0-0.2) Sodium Level 139mmol/L (136-145) Potassium Level 4.7mmol/L (3.5-5.1) Chloride Level 96mmol/L (98-107) Carbon Dioxide Level > 45mmol/L (21-32) Anion Gap (6-14) Blood Urea Nitrogen 10mg/dL (8-26) Creatinine 0.8mg/dL (0.7-1.3) Estimated GFR (Cockcroft-Gault) 100.7 Glucose Level 105mg/dL (70-99) Calcium Level 8.4mg/dL (8.5-10.1) Magnesium Level 1.8mg/dL (1.8-2.4) Physical Exam HEENT: Neck Supple W Full Motion Chest: Symmetric LUNGS: Other (diminished bases ) Heart: S1S2, irregularly irregular, other (distant heart tones) Abdomen: Other (obese ) Extremities: Other (3+ bilateral LE edema. LE erythema ) Neurology: alert, oriented, follow commands Assessment Assessment 1. Acute systolic HF echo with depressed LV function- EF 30-35%; baseline unknown baseline unknown; records received indicates no recent echo. better compensated- continue with IV diuresis Add Coreg for optimization given h/o CAD and abnormal echo, will plan for cardiac cath with possible PCI when fluid status improves. 2. AFIB RVR, new onset rate better controlled; continue Cardizem and digoxin Eliquis for stroke prophylaxis. 3. Acute respiratory failure on NC per pulm 4. CAD PCI/stent 2005. stable. CP free 5. HTN well controlled. continue current therapy 6. DM-2 per PCP 7. Obesity ? hypoventilation syndrome/JETT RADHA BANERJEE MD 08/25/16 0829: CARDIO Progress Notes Assessment Assessment Patient seen and examined 08/24/16. Agree with DIRECTOR CLINICAL PHARMACOLOGY's assessment and plan. Acute systolic heart failure better compensated with intravenous Lasix. Atrial fibrillation rate better controlled. Continue current medications. Plan for cardiac catheterization monday LAUREN ROBERTSON APRN Aug 24, 2016 11:51 RADHA BANERJEE MD Aug 25, 2016 08:29
--- NOTE | 2016-08-24 13:37 | PDOC ---
PROGRESS NOTES Chief Complaint Chief Complaint CC: Shortness of breath 1. CHF - new 2. A fib 3. CAD 4. HTN 5. HLP 6. Morbid obesity 7. Hypoglycemia 8. Tobaccoism 9. Sleep apnea 10. Venous insufficiency History of Present Illness History of Present Illness Patient is sitting at side of bed upon entering room and appears improved from previous exams. His shortness of breath has greatly improved. He reports he is feeling well and attributes that to losing 30-40lbs of water weight. No acute events overnight. Vitals Vitals Vital Signs Date Time Temp Pulse Resp B/P Pulse Ox O2 Delivery O2 Flow Rate FiO2 08/24/16 11:11 85 Room Air 08/24/16 10:41 98.0 114 22 127/69 98.0 08/24/16 08:00 5.0 Physical Exam General: Alert, Oriented X3, Cooperative, No acute distress Heart: Regular rate, No murmurs Lungs: Crackles (Slight crackles bilaterally), Other (No wheezing) Abdomen: Soft, No tenderness Extremities: No cyanosis, Other (Improved bilateral LE edema ) Skin: No significant lesion, Other (venous stasis lesion of RLE- Dressing in tact with compression stockings) Labs LABS Laboratory Tests Test 08/24/16 05:50 White Blood Count 10.2x10^3/uL (4.0-11.0) Red Blood Count 5.04x10^6/uL (4.30-5.70) Hemoglobin 12.1g/dL (13.0-17.5) Hematocrit 38.6% (39.0-53.0) Mean Corpuscular Volume 77fL (79-100) Mean Corpuscular Hemoglobin 24pg (25-35) Mean Corpuscular Hemoglobin Concent 31g/dL (31-37) Red Cell Distribution Width 17.4% (11.5-14.5) Platelet Count 200x10^3/uL (140-400) Neutrophils (%) (Auto) 73% (31-73) Lymphocytes (%) (Auto) 10% (24-48) Monocytes (%) (Auto) 16% (0-9) Eosinophils (%) (Auto) 1% (0-3) Basophils (%) (Auto) 1% (0-3) Neutrophils # (Auto) 7.4x10^3uL (1.8-7.7) Lymphocytes # (Auto) 1.0x10^3/uL (1.0-4.8) Monocytes # (Auto) 1.6x10^3/uL (0.0-1.1) Eosinophils # (Auto) 0.1x10^3/uL (0.0-0.7) Basophils # (Auto) 0.1x10^3/uL (0.0-0.2) Sodium Level 139mmol/L (136-145) Potassium Level 4.7mmol/L (3.5-5.1) Chloride Level 96mmol/L (98-107) Carbon Dioxide Level > 45mmol/L (21-32) Anion Gap (6-14) Blood Urea Nitrogen 10mg/dL (8-26) Creatinine 0.8mg/dL (0.7-1.3) Estimated GFR (Cockcroft-Gault) 100.7 Glucose Level 105mg/dL (70-99) Calcium Level 8.4mg/dL (8.5-10.1) Magnesium Level 1.8mg/dL (1.8-2.4) Review of Systems Review of Systems Patient reports improved shortness of breath and greatly improved edema. Denies fever or chills. Assessment and Plan Assessmemt and Plan Problems Medical Problems: (1) Atrial fibrillation Status: Acute (2) CHF exacerbation Status: Acute (3) Dyspnea Status: Acute (4) Hypoxia Status: Acute (5) Obesity Status: Acute 1. CHF - new onset 2. A fib 3. CAD 4. HTN 5. HLD 6. Morbid obesity 7. Hypoglycemia 8. Tobaccoism 9. Sleep apnea 10. Venous insufficiency Plan: Continue Care per floor protocol Cardiology is following, recommendations are appreciated, plan to perform cardiac cath with possible PCI once fluid status improves Pulmonology is following, recommendations are appreciated Continue Diuresis and 02 Recommended for outpatient sleep study on discharge Continue wound care Continue to trend labs Continue PT/OT Continue Eliquis per cardiology Continue home medications Problems: Comment Review of Relevant I have reviewed the following items johnna (where applicable) has been applied. Labs Laboratory Tests Test 08/23/16 03:38 08/24/16 05:50 White Blood Count 9.6x10^3/uL (4.0-11.0) 10.2x10^3/uL (4.0-11.0) Red Blood Count 5.31x10^6/uL (4.30-5.70) 5.04x10^6/uL (4.30-5.70) Hemoglobin 12.6g/dL (13.0-17.5) 12.1g/dL (13.0-17.5) Hematocrit 41.4% (39.0-53.0) 38.6% (39.0-53.0) Mean Corpuscular Volume 78fL (79-100) 77fL (79-100) Mean Corpuscular Hemoglobin 24pg (25-35) 24pg (25-35) Mean Corpuscular Hemoglobin Concent 31g/dL (31-37) 31g/dL (31-37) Red Cell Distribution Width 17.0% (11.5-14.5) 17.4% (11.5-14.5) Platelet Count 203x10^3/uL (140-400) 200x10^3/uL (140-400) Neutrophils (%) (Auto) 74% (31-73) 73% (31-73) Lymphocytes (%) (Auto) 11% (24-48) 10% (24-48) Monocytes (%) (Auto) 14% (0-9) 16% (0-9) Eosinophils (%) (Auto) 1% (0-3) 1% (0-3) Basophils (%) (Auto) 0% (0-3) 1% (0-3) Neutrophils # (Auto) 7.1x10^3uL (1.8-7.7) 7.4x10^3uL (1.8-7.7) Lymphocytes # (Auto) 1.0x10^3/uL (1.0-4.8) 1.0x10^3/uL (1.0-4.8) Monocytes # (Auto) 1.3x10^3/uL (0.0-1.1) 1.6x10^3/uL (0.0-1.1) Eosinophils # (Auto) 0.1x10^3/uL (0.0-0.7) 0.1x10^3/uL (0.0-0.7) Basophils # (Auto) 0.0x10^3/uL (0.0-0.2) 0.1x10^3/uL (0.0-0.2) Sodium Level 138mmol/L (136-145) 139mmol/L (136-145) Potassium Level 4.6mmol/L (3.5-5.1) 4.7mmol/L (3.5-5.1) Chloride Level 96mmol/L (98-107) 96mmol/L (98-107) Carbon Dioxide Level 42mmol/L (21-32) > 45mmol/L (21-32) Anion Gap 0 (6-14) (6-14) Blood Urea Nitrogen 11mg/dL (8-26) 10mg/dL (8-26) Creatinine 0.7mg/dL (0.7-1.3) 0.8mg/dL (0.7-1.3) Estimated GFR (Cockcroft-Gault) 117.5 100.7 Glucose Level 101mg/dL (70-99) 105mg/dL (70-99) Calcium Level 8.6mg/dL (8.5-10.1) 8.4mg/dL (8.5-10.1) Magnesium Level 1.8mg/dL (1.8-2.4) Laboratory Tests Test 08/24/16 05:50 White Blood Count 10.2x10^3/uL (4.0-11.0) Red Blood Count 5.04x10^6/uL (4.30-5.70) Hemoglobin 12.1g/dL (13.0-17.5) Hematocrit 38.6% (39.0-53.0) Mean Corpuscular Volume 77fL (79-100) Mean Corpuscular Hemoglobin 24pg (25-35) Mean Corpuscular Hemoglobin Concent 31g/dL (31-37) Red Cell Distribution Width 17.4% (11.5-14.5) Platelet Count 200x10^3/uL (140-400) Neutrophils (%) (Auto) 73% (31-73) Lymphocytes (%) (Auto) 10% (24-48) Monocytes (%) (Auto) 16% (0-9) Eosinophils (%) (Auto) 1% (0-3) Basophils (%) (Auto) 1% (0-3) Neutrophils # (Auto) 7.4x10^3uL (1.8-7.7) Lymphocytes # (Auto) 1.0x10^3/uL (1.0-4.8) Monocytes # (Auto) 1.6x10^3/uL (0.0-1.1) Eosinophils # (Auto) 0.1x10^3/uL (0.0-0.7) Basophils # (Auto) 0.1x10^3/uL (0.0-0.2) Sodium Level 139mmol/L (136-145) Potassium Level 4.7mmol/L (3.5-5.1) Chloride Level 96mmol/L (98-107) Carbon Dioxide Level > 45mmol/L (21-32) Anion Gap (6-14) Blood Urea Nitrogen 10mg/dL (8-26) Creatinine 0.8mg/dL (0.7-1.3) Estimated GFR (Cockcroft-Gault) 100.7 Glucose Level 105mg/dL (70-99) Calcium Level 8.4mg/dL (8.5-10.1) Magnesium Level 1.8mg/dL (1.8-2.4) Medications Current Medications Albuterol/ Ipratropium (Duoneb) 3 ml 1X ONCE NEB Last administered on 13:29; Start 08/19/16 at 13:00; Stop 08/19/16 at 15:13; Status DC Furosemide (Lasix) 40 mg 1X ONCE IVP Last administered on 08/19/16 16:30; Start 08/19/16 at 14:15; Stop 08/19/16 at 15:13; Status DC Aspirin (Children'S Aspirin) 324 mg 1X ONCE PO Last administered on 08/19/16 16:29; Start 08/19/16 at 14:15; Stop 08/19/16 at 15:13; Status DC Ondansetron HCl (Zofran) 4 mg PRN Q8HRS PRN IV NAUSEA/VOMITING; Start 08/19/16 at 14:30; Stop 08/20/16 at 14:29; Status DC Morphine Sulfate 2 mg PRN Q2HR PRN IV PAIN; Start 08/19/16 at 14:30; Stop 08/20 at 14:29; Status DC Digoxin 500 mcg 500 mcg 1X ONCE IV Last administered on 08/20/16 09:51; Start 08/20/16 at 09:00; Stop 08/20/16 at 09:01; Status DC Diltiazem HCl/ Dextrose (Cardizem) 125 ml @ 0 mls/hr CONT PRN IV SEE I/O RECORD Last administered on 08/20/16 09:52; Start 08/20/16 at 08:45; Stop 08/21 at 17:20; Status DC Diltiazem HCl (Cardizem) 10 mg 1X ONCE IVP Last administered on 08/20/16 09: 51; Start 08/20/16 at 09:00; Stop 08/20/16 at 09:01; Status DC Aspirin (Ecotrin) 81 mg [id number] PO Last administered on 08/24/16 09:08; Start 08/20/16 at 10:00 Famotidine (Pepcid) 20 mg QHS PO Last administered on 08/23/16 21:59; Start at 21:00 Furosemide (Lasix) 40 mg DAILY PO Last administered on 08/21/16 09:28; Start 08/20/16 at 10:00; Stop 08/21/16 at 17:24; Status DC Lisinopril (Prinivil) 10 mg DAILY PO Last administered on 08/24/16 09:08; Start 08/20/16 at 10:00 Furosemide (Lasix) 40 mg BID92 PO ; Start 08/20/16 at 10:00; Stop 08/20/16 at 16 :20; Status DC Apixaban (Eliquis) 5 mg BID PO Last administered on 08/24/16 09:07; Start 08/20 at 11:00 Furosemide (Lasix) 40 mg 1X ONCE IVP Last administered on 08/20/16 12:35; Start 08/20/16 at 12:00; Stop 08/20/16 at 12:01; Status DC Albuterol/ Ipratropium (Duoneb) 3 ml RTQID NEB Last administered on 08/24/16 11 :09; Start 08/20/16 at 16:00 Diltiazem HCl (Cardizem 24hr Cd) 240 mg 1X ONCE PO Last administered on 22:22; Start 08/20/16 at 22:15; Stop 08/20/16 at 22:16; Status DC Furosemide (Lasix) 40 mg 1X ONCE IVP ; Start 08/21/16 at 10:00; Stop 08/21/16 at 10:01; Status DC Info (Anti-Coagulation Monitoring By Pharmacy) 1 each PRN DAILY PRN MC SEE COMMENTS Last administered on 08/23/16 16:15; Start 08/21/16 at 16:15 Diltiazem HCl (Cardizem 24hr Cd) 240 mg DAILY PO Last administered on 08:49; Start 08/22/16 at 09:00; Stop 08/22/16 at 14:59; Status DC Digoxin (Lanoxin) 500 mcg 1X ONCE PO Last administered on 08/21/16 18:22; Start 08/21/16 at 17:30; Stop 08/21/16 at 17:31; Status DC Digoxin (Lanoxin) 125 mcg DAILY PO Last administered on 08/24/16 09:08; Start 08/22/16 at 09:00 Furosemide 40 mg 40 mg BID92 IVP Last administered on 08/24/16 09:08; Start at 09:00 Magnesium Sulfate/ Dextrose (Magnesium Sulfate PREMIX 2GM) 50 ml @ 25 mls/hr 1X ONCE IV Last administered on 08/22/16 13:54; Start 08/22/16 at 09:30; Stop 08/22/16 at 11:29; Status DC Sulfur Hexafluoride Microspheres (Lumason) 25 mg STK-MED ONCE IVP ; Start at 10:32; Stop 08/22/16 at 10:33; Status DC Diltiazem HCl (Diltiazem 24hr Cd) 300 mg DAILY PO Last administered on 09:08; Start 08/23/16 at 09:00 Sulfur Hexafluoride Microspheres 25 mg 25 mg STK-MED ONCE IVP ; Start 08/22/16 at 10:30; Stop 08/23/16 at 08:40; Status DC Magnesium Sulfate/ Dextrose (Magnesium Sulfate PREMIX 2GM) 50 ml @ 25 mls/hr 1X ONCE IV ; Start 08/23/16 at 16:30; Stop 08/23/16 at 16:34; Status DC Carvedilol (Coreg) 3.125 mg BIDWMEALS PO ; Start 08/24/16 at 17:00 Active Scripts Active Reported Aspirin 325 Mg Tablet 1 Tab PO DAILY Atenolol 25 Mg Tablet 1 Tab PO DAILY Enalapril Maleate 20 Mg Tablet 1 Tab PO BID Vitals/I & O Vital Sign - Last 24 Hours 08/23/16 08/23/16 08/23/16 08/23/16 15:00 16:07 19:02 19:50 Temp 97.9 97.9 Pulse 97 96 Resp B/P 140/73 114/63 Pulse Ox 93 93 93 O2 Delivery Nasal Cannula Nasal Cannula Nasal Cannula Nasal Cannula O2 Flow Rate 4.0 4.0 4.0 4.0 08/23/16 08/23/16 08/24/16 08/24/16 20:00 23:10 03:00 07:00 Temp 97.8 98.0 97.8 97.8 98.0 97.8 Pulse 91 95 86 Resp B/P 132/81 119/72 136/76 Pulse Ox 93 91 94 O2 Delivery Nasal Cannula Nasal Cannula Nasal Cannula Nasal Cannula O2 Flow Rate 5.0 4.0 4.0 08/24/16 08/24/16 08/24/16 08/24/16 07:52 08:00 09:08 09:08 Pulse 86 86 B/P 136/76 136/76 Pulse Ox 92 O2 Delivery Nasal Cannula Nasal Cannula O2 Flow Rate 4.0 5.0 08/24/16 08/24/16 08/24/16 09:08 10:41 11:11 Temp 98.0 98.0 Pulse 86 114 Resp 22 B/P 136/76 127/69 Pulse Ox 92 85 O2 Delivery Nasal Cannula Room Air Intake and Output 08/23/16 08/23/16 08/24/16 15:00 23:00 07:00 Intake Total 1160 ml Output Total 2400 ml 2875 ml Balance -2400 ml -2875 ml 1160 ml BRITTNEY LAMB III, DO Aug 24, 2016 13:37
--- NOTE | 2016-08-24 14:25 | PDOC ---
PULMONARY PROGRESS NOTES Subjective pt not more soa Vitals Vital Signs Date Time Temp Pulse Resp B/P Pulse Ox O2 Delivery O2 Flow Rate FiO2 08/24/16 11:11 85 Room Air 08/24/16 10:41 98.0 114 22 127/69 98.0 08/24/16 08:00 5.0 ROS: No Nausea, No Chest Pain, No Abdominal Pain Lungs: Crackles (Slight crackles bilaterally), Other (No wheezing) Cardiovascular: S1 Abdomen: Soft, Other (obese) Neuro Exam: Alert Extremities: Other (2+edema) Skin: Warm Labs Laboratory Tests Test 08/23/16 03:38 08/24/16 05:50 White Blood Count 9.6x10^3/uL (4.0-11.0) 10.2x10^3/uL (4.0-11.0) Red Blood Count 5.31x10^6/uL (4.30-5.70) 5.04x10^6/uL (4.30-5.70) Hemoglobin 12.6g/dL (13.0-17.5) 12.1g/dL (13.0-17.5) Hematocrit 41.4% (39.0-53.0) 38.6% (39.0-53.0) Mean Corpuscular Volume 78fL (79-100) 77fL (79-100) Mean Corpuscular Hemoglobin 24pg (25-35) 24pg (25-35) Mean Corpuscular Hemoglobin Concent 31g/dL (31-37) 31g/dL (31-37) Red Cell Distribution Width 17.0% (11.5-14.5) 17.4% (11.5-14.5) Platelet Count 203x10^3/uL (140-400) 200x10^3/uL (140-400) Neutrophils (%) (Auto) 74% (31-73) 73% (31-73) Lymphocytes (%) (Auto) 11% (24-48) 10% (24-48) Monocytes (%) (Auto) 14% (0-9) 16% (0-9) Eosinophils (%) (Auto) 1% (0-3) 1% (0-3) Basophils (%) (Auto) 0% (0-3) 1% (0-3) Neutrophils # (Auto) 7.1x10^3uL (1.8-7.7) 7.4x10^3uL (1.8-7.7) Lymphocytes # (Auto) 1.0x10^3/uL (1.0-4.8) 1.0x10^3/uL (1.0-4.8) Monocytes # (Auto) 1.3x10^3/uL (0.0-1.1) 1.6x10^3/uL (0.0-1.1) Eosinophils # (Auto) 0.1x10^3/uL (0.0-0.7) 0.1x10^3/uL (0.0-0.7) Basophils # (Auto) 0.0x10^3/uL (0.0-0.2) 0.1x10^3/uL (0.0-0.2) Sodium Level 138mmol/L (136-145) 139mmol/L (136-145) Potassium Level 4.6mmol/L (3.5-5.1) 4.7mmol/L (3.5-5.1) Chloride Level 96mmol/L (98-107) 96mmol/L (98-107) Carbon Dioxide Level 42mmol/L (21-32) > 45mmol/L (21-32) Anion Gap 0 (6-14) (6-14) Blood Urea Nitrogen 11mg/dL (8-26) 10mg/dL (8-26) Creatinine 0.7mg/dL (0.7-1.3) 0.8mg/dL (0.7-1.3) Estimated GFR (Cockcroft-Gault) 117.5 100.7 Glucose Level 101mg/dL (70-99) 105mg/dL (70-99) Calcium Level 8.6mg/dL (8.5-10.1) 8.4mg/dL (8.5-10.1) Magnesium Level 1.8mg/dL (1.8-2.4) Laboratory Tests Test 08/24/16 05:50 White Blood Count 10.2x10^3/uL (4.0-11.0) Red Blood Count 5.04x10^6/uL (4.30-5.70) Hemoglobin 12.1g/dL (13.0-17.5) Hematocrit 38.6% (39.0-53.0) Mean Corpuscular Volume 77fL (79-100) Mean Corpuscular Hemoglobin 24pg (25-35) Mean Corpuscular Hemoglobin Concent 31g/dL (31-37) Red Cell Distribution Width 17.4% (11.5-14.5) Platelet Count 200x10^3/uL (140-400) Neutrophils (%) (Auto) 73% (31-73) Lymphocytes (%) (Auto) 10% (24-48) Monocytes (%) (Auto) 16% (0-9) Eosinophils (%) (Auto) 1% (0-3) Basophils (%) (Auto) 1% (0-3) Neutrophils # (Auto) 7.4x10^3uL (1.8-7.7) Lymphocytes # (Auto) 1.0x10^3/uL (1.0-4.8) Monocytes # (Auto) 1.6x10^3/uL (0.0-1.1) Eosinophils # (Auto) 0.1x10^3/uL (0.0-0.7) Basophils # (Auto) 0.1x10^3/uL (0.0-0.2) Sodium Level 139mmol/L (136-145) Potassium Level 4.7mmol/L (3.5-5.1) Chloride Level 96mmol/L (98-107) Carbon Dioxide Level > 45mmol/L (21-32) Anion Gap (6-14) Blood Urea Nitrogen 10mg/dL (8-26) Creatinine 0.8mg/dL (0.7-1.3) Estimated GFR (Cockcroft-Gault) 100.7 Glucose Level 105mg/dL (70-99) Calcium Level 8.4mg/dL (8.5-10.1) Magnesium Level 1.8mg/dL (1.8-2.4) Medications Active Scripts Medications Dose Route/Sig Days Date Category Aspirin 325 Mg Tablet 1 Tab PO DAILY 08/19/16 Reported Atenolol 25 Mg Tablet 1 Tab PO DAILY 08/19/16 Reported Enalapril Maleate 20 Mg Tablet 1 Tab PO BID 08/19/16 Reported Impression . 1. Acute hypoxic respiratory failure, multifactorial 2. Marked obesity with chronic hypercapnia, suspect underlying obesity hypoventilation syndrome and suspected obstructive sleep apnea. 3. History of myocardial infarction in 2006 and coronary artery disease. 4. Weight gain of 20 pounds in the last 4 days, also contributing to his symptoms. 5. Abnormal chest x-ray consistent with congestive heart failure. 6. Sec pulmonary HTN ECHO Left ventricle systolic function is moderately to severely impaired. The Ejection Fraction is 30-35%. There is severe hypokinesis in the basal through mid inferosrptal wall. The inferior wall appears severely hypokinetic as well. All othe mayers appear moderately hypokinetic. Doppler and Color Flow revealed mild tricuspid regurgitation.The pulmonary artery systolic pressure is estimated at 58 mmHg. There is moderate pulmonary hypertension. Severely limited images due to body habitus despite contrast use. Consider REBECA if clinically indicated. Plan . 1. diurese 2. possible cath soon will d/w with card on possible right heart cath 3. Follow up chest x-ray 4. Echo report noted 5. outpt sleep study 6. Weight loss is advised to the patient. DEVONTE HONEYCUTT MD Aug 24, 2016 14:25
[2016-08-24 14:43] VITALS: BP 104/66
[2016-08-24] MEDS: CARVEDILOL 3.125 MG TABLET PO SCH (16:54)
[2016-08-24] MEDS ORDERED: SENNOSIDES 8.6 MG TABLET PO PRN (19:15)
[2016-08-24 19:43] VITALS: BP 113/67
[2016-08-24] MEDS: FAMOTIDINE 20 MG TABLET. PO SCH (21:47)
[2016-08-24 23:32] VITALS: BP 103/60
[2016-08-25 03:16] VITALS: BP 107/72
[2016-08-25 05:48] LABS: BASO % 1 % (0-3); EOS % 2 % (0-3); HEMATOCRIT 38.3 % (39.0-53.0); LYMPH # 0.9 x10^3/uL (1.0-4.8); LYMPH % 10 % (24-48); MEAN CORPUSCULAR HEMOGLOBIN 24 pg (25-35); MEAN CORPUSCULAR HGB CONC 31 g/dL (31-37); MEAN CORPUSCULAR VOLUME 76 fL (79-100); MONO % 17 % (0-9); NEUT % 71 % (31-73); PLATELET COUNT 197 x10^3/uL (140-400); RED BLOOD COUNT 5.06 x10^6/uL (4.30-5.70); RED CELL DISTRIBUTION WIDTH 17.5 % (11.5-14.5); WHITE BLOOD COUNT 9.1 x10^3/uL (4.0-11.0)
[2016-08-25 05:49] LABS: BLOOD UREA NITROGEN 9 mg/dL (8-26); CALCIUM 8.4 mg/dL (8.5-10.1); CARBON DIOXIDE 43 mmol/L (21-32); CHLORIDE 95 mmol/L (98-107); CREATININE 0.8 mg/dL (0.7-1.3); GFR 100.7; GLUCOSE 104 mg/dL (70-99); POTASSIUM 4.6 mmol/L (3.5-5.1); SODIUM 136 mmol/L (136-145)
[2016-08-25 07:00] VITALS: BP 122/77
[2016-08-25] MEDS: ANTI-COAG MONITOR BY PHARMACY. MC PRN (07:33)
[2016-08-25] MEDS: IPRATRPIUM/ALBUTEROL 0.5/2.5MG 3 ML NEBU. NEB SCH ×4 (08:07→21:15)
[2016-08-25] MEDS: FUROSEMIDE 40 MG/4 ML VIAL IVP SCH ×2 (08:41→14:18)
[2016-08-25] MEDS: DILTIAZEM HCL 300 MG CAP.ER.24H PO SCH (08:41)
[2016-08-25] MEDS: ASPIRIN ENTERIC COATED 81 MG TABLET.DR. PO SCH (08:41)
[2016-08-25] MEDS: DIGOXIN 125 MCG TABLET PO SCH (08:42)
[2016-08-25] MEDS: CARVEDILOL 3.125 MG TABLET PO SCH ×2 (08:42→17:05)
[2016-08-25] MEDS: LISINOPRIL 10 MG TABLET PO SCH (08:42)
[2016-08-25] MEDS: APIXABAN 5 MG TABLET. PO SCH ×2 (08:42→21:24)
[2016-08-25 10:42] VITALS: BP 121/69
--- NOTE | 2016-08-25 12:15 | PDOC ---
PROGRESS NOTES Chief Complaint Chief Complaint CC: Shortness of breath 1. CHF - new 2. A fib 3. CAD 4. HTN 5. HLP 6. Morbid obesity 7. Hypoglycemia 8. Tobaccoism 9. Sleep apnea 10. Venous insufficiency History of Present Illness History of Present Illness Patient is sitting at side of bed upon entering room and appears improved from previous exams. His shortness of breath has greatly improved. He reports feeling better, possible cardiac catheterization procedure will be done tomorrow , plan discussed with patient and RN, No acute events overnight. Vitals Vitals Vital Signs Date Time Temp Pulse Resp B/P Pulse Ox O2 Delivery O2 Flow Rate FiO2 08/25/16 11:53 93 Nasal Cannula 3.0 08/25/16 10:42 97.8 74 18 121/69 97.8 Physical Exam General: Alert, Oriented X3, Cooperative, No acute distress Heart: Regular rate, No murmurs Lungs: Crackles (Slight crackles bilaterally), Other (No wheezing) Abdomen: Soft, No tenderness Extremities: No cyanosis, Other (Improved bilateral LE edema ) Skin: No significant lesion, Other (venous stasis lesion of RLE- Dressing in tact with compression stockings) Labs LABS Laboratory Tests Test 08/25/16 05:30 White Blood Count 9.1x10^3/uL (4.0-11.0) Red Blood Count 5.06x10^6/uL (4.30-5.70) Hemoglobin 12.0g/dL (13.0-17.5) Hematocrit 38.3% (39.0-53.0) Mean Corpuscular Volume 76fL (79-100) Mean Corpuscular Hemoglobin 24pg (25-35) Mean Corpuscular Hemoglobin Concent 31g/dL (31-37) Red Cell Distribution Width 17.5% (11.5-14.5) Platelet Count 197x10^3/uL (140-400) Neutrophils (%) (Auto) 71% (31-73) Lymphocytes (%) (Auto) 10% (24-48) Monocytes (%) (Auto) 17% (0-9) Eosinophils (%) (Auto) 2% (0-3) Basophils (%) (Auto) 1% (0-3) Neutrophils # (Auto) 6.5x10^3uL (1.8-7.7) Lymphocytes # (Auto) 0.9x10^3/uL (1.0-4.8) Monocytes # (Auto) 1.5x10^3/uL (0.0-1.1) Eosinophils # (Auto) 0.1x10^3/uL (0.0-0.7) Basophils # (Auto) 0.0x10^3/uL (0.0-0.2) Sodium Level 136mmol/L (136-145) Potassium Level 4.6mmol/L (3.5-5.1) Chloride Level 95mmol/L (98-107) Carbon Dioxide Level 43mmol/L (21-32) Anion Gap (6-14) Blood Urea Nitrogen 9mg/dL (8-26) Creatinine 0.8mg/dL (0.7-1.3) Estimated GFR (Cockcroft-Gault) 100.7 Glucose Level 104mg/dL (70-99) Calcium Level 8.4mg/dL (8.5-10.1) Review of Systems Review of Systems No new complains reported, improved SOB and no CP reported, ECHO report showed EF 30-35%, cardiac cath likely tomorrow. Assessment and Plan Assessmemt and Plan Problems 1. CHF - new onset 2. A fib 3. CAD 4. HTN 5. HLD 6. Morbid obesity 7. Hypoglycemia 8. Tobaccoism 9. Sleep apnea 10. Venous insufficiency Plan: Continue Care per floor protocol Cardiology is following, recommendations are appreciated, plan to perform cardiac cath with possible PCI tomorrow Pulmonology is following, recommendations are appreciated Continue Diuresis and 02 Continue wound care Continue routine labs Continue PT/OT Continue home medications Problems: Comment Review of Relevant I have reviewed the following items johnna (where applicable) has been applied. Labs Laboratory Tests Test 08/24/16 05:50 08/25/16 05:30 White Blood Count 10.2x10^3/uL (4.0-11.0) 9.1x10^3/uL (4.0-11.0) Red Blood Count 5.04x10^6/uL (4.30-5.70) 5.06x10^6/uL (4.30-5.70) Hemoglobin 12.1g/dL (13.0-17.5) 12.0g/dL (13.0-17.5) Hematocrit 38.6% (39.0-53.0) 38.3% (39.0-53.0) Mean Corpuscular Volume 77fL (79-100) 76fL (79-100) Mean Corpuscular Hemoglobin 24pg (25-35) 24pg (25-35) Mean Corpuscular Hemoglobin Concent 31g/dL (31-37) 31g/dL (31-37) Red Cell Distribution Width 17.4% (11.5-14.5) 17.5% (11.5-14.5) Platelet Count 200x10^3/uL (140-400) 197x10^3/uL (140-400) Neutrophils (%) (Auto) 73% (31-73) 71% (31-73) Lymphocytes (%) (Auto) 10% (24-48) 10% (24-48) Monocytes (%) (Auto) 16% (0-9) 17% (0-9) Eosinophils (%) (Auto) 1% (0-3) 2% (0-3) Basophils (%) (Auto) 1% (0-3) 1% (0-3) Neutrophils # (Auto) 7.4x10^3uL (1.8-7.7) 6.5x10^3uL (1.8-7.7) Lymphocytes # (Auto) 1.0x10^3/uL (1.0-4.8) 0.9x10^3/uL (1.0-4.8) Monocytes # (Auto) 1.6x10^3/uL (0.0-1.1) 1.5x10^3/uL (0.0-1.1) Eosinophils # (Auto) 0.1x10^3/uL (0.0-0.7) 0.1x10^3/uL (0.0-0.7) Basophils # (Auto) 0.1x10^3/uL (0.0-0.2) 0.0x10^3/uL (0.0-0.2) Sodium Level 139mmol/L (136-145) 136mmol/L (136-145) Potassium Level 4.7mmol/L (3.5-5.1) 4.6mmol/L (3.5-5.1) Chloride Level 96mmol/L (98-107) 95mmol/L (98-107) Carbon Dioxide Level > 45mmol/L (21-32) 43mmol/L (21-32) Anion Gap (6-14) (6-14) Blood Urea Nitrogen 10mg/dL (8-26) 9mg/dL (8-26) Creatinine 0.8mg/dL (0.7-1.3) 0.8mg/dL (0.7-1.3) Estimated GFR (Cockcroft-Gault) 100.7 100.7 Glucose Level 105mg/dL (70-99) 104mg/dL (70-99) Calcium Level 8.4mg/dL (8.5-10.1) 8.4mg/dL (8.5-10.1) Magnesium Level 1.8mg/dL (1.8-2.4) Laboratory Tests Test 08/25/16 05:30 White Blood Count 9.1x10^3/uL (4.0-11.0) Red Blood Count 5.06x10^6/uL (4.30-5.70) Hemoglobin 12.0g/dL (13.0-17.5) Hematocrit 38.3% (39.0-53.0) Mean Corpuscular Volume 76fL (79-100) Mean Corpuscular Hemoglobin 24pg (25-35) Mean Corpuscular Hemoglobin Concent 31g/dL (31-37) Red Cell Distribution Width 17.5% (11.5-14.5) Platelet Count 197x10^3/uL (140-400) Neutrophils (%) (Auto) 71% (31-73) Lymphocytes (%) (Auto) 10% (24-48) Monocytes (%) (Auto) 17% (0-9) Eosinophils (%) (Auto) 2% (0-3) Basophils (%) (Auto) 1% (0-3) Neutrophils # (Auto) 6.5x10^3uL (1.8-7.7) Lymphocytes # (Auto) 0.9x10^3/uL (1.0-4.8) Monocytes # (Auto) 1.5x10^3/uL (0.0-1.1) Eosinophils # (Auto) 0.1x10^3/uL (0.0-0.7) Basophils # (Auto) 0.0x10^3/uL (0.0-0.2) Sodium Level 136mmol/L (136-145) Potassium Level 4.6mmol/L (3.5-5.1) Chloride Level 95mmol/L (98-107) Carbon Dioxide Level 43mmol/L (21-32) Anion Gap (6-14) Blood Urea Nitrogen 9mg/dL (8-26) Creatinine 0.8mg/dL (0.7-1.3) Estimated GFR (Cockcroft-Gault) 100.7 Glucose Level 104mg/dL (70-99) Calcium Level 8.4mg/dL (8.5-10.1) Medications Current Medications Albuterol/ Ipratropium (Duoneb) 3 ml 1X ONCE NEB Last administered on 13:29; Start 08/19/16 at 13:00; Stop 08/19/16 at 15:13; Status DC Furosemide (Lasix) 40 mg 1X ONCE IVP Last administered on 08/19/16 16:30; Start 08/19/16 at 14:15; Stop 08/19/16 at 15:13; Status DC Aspirin (Children'S Aspirin) 324 mg 1X ONCE PO Last administered on 08/19/16 16:29; Start 08/19/16 at 14:15; Stop 08/19/16 at 15:13; Status DC Ondansetron HCl (Zofran) 4 mg PRN Q8HRS PRN IV NAUSEA/VOMITING; Start 08/19/16 at 14:30; Stop 08/20/16 at 14:29; Status DC Morphine Sulfate 2 mg PRN Q2HR PRN IV PAIN; Start 08/19/16 at 14:30; Stop 08/20 at 14:29; Status DC Digoxin 500 mcg 500 mcg 1X ONCE IV Last administered on 08/20/16 09:51; Start 08/20/16 at 09:00; Stop 08/20/16 at 09:01; Status DC Diltiazem HCl/ Dextrose (Cardizem) 125 ml @ 0 mls/hr CONT PRN IV SEE I/O RECORD Last administered on 08/20/16 09:52; Start 08/20/16 at 08:45; Stop 08/21 at 17:20; Status DC Diltiazem HCl (Cardizem) 10 mg 1X ONCE IVP Last administered on 08/20/16 09: 51; Start 08/20/16 at 09:00; Stop 08/20/16 at 09:01; Status DC Aspirin (Ecotrin) 81 mg [id number] PO Last administered on 08/25/16 08:41; Start 08/20/16 at 10:00 Famotidine (Pepcid) 20 mg QHS PO Last administered on 08/24/16 21:47; Start at 21:00 Furosemide (Lasix) 40 mg DAILY PO Last administered on 08/21/16 09:28; Start 08/20/16 at 10:00; Stop 08/21/16 at 17:24; Status DC Lisinopril (Prinivil) 10 mg DAILY PO Last administered on 08/25/16 08:42; Start 08/20/16 at 10:00 Furosemide (Lasix) 40 mg BID92 PO ; Start 08/20/16 at 10:00; Stop 08/20/16 at 16 :20; Status DC Apixaban (Eliquis) 5 mg BID PO Last administered on 08/25/16 08:42; Start 08/20 at 11:00 Furosemide (Lasix) 40 mg 1X ONCE IVP Last administered on 08/20/16 12:35; Start 08/20/16 at 12:00; Stop 08/20/16 at 12:01; Status DC Albuterol/ Ipratropium (Duoneb) 3 ml RTQID NEB Last administered on 08/25/16 11 :53; Start 08/20/16 at 16:00 Diltiazem HCl (Cardizem 24hr Cd) 240 mg 1X ONCE PO Last administered on 22:22; Start 08/20/16 at 22:15; Stop 08/20/16 at 22:16; Status DC Furosemide (Lasix) 40 mg 1X ONCE IVP ; Start 08/21/16 at 10:00; Stop 08/21/16 at 10:01; Status DC Info (Anti-Coagulation Monitoring By Pharmacy) 1 each PRN DAILY PRN MC SEE COMMENTS Last administered on 08/25/16 07:33; Start 08/21/16 at 16:15 Diltiazem HCl (Cardizem 24hr Cd) 240 mg DAILY PO Last administered on 08:49; Start 08/22/16 at 09:00; Stop 08/22/16 at 14:59; Status DC Digoxin (Lanoxin) 500 mcg 1X ONCE PO Last administered on 08/21/16 18:22; Start 08/21/16 at 17:30; Stop 08/21/16 at 17:31; Status DC Digoxin (Lanoxin) 125 mcg DAILY PO Last administered on 08/25/16 08:42; Start 08/22/16 at 09:00 Furosemide 40 mg 40 mg BID92 IVP Last administered on 08/25/16 08:41; Start at 09:00 Magnesium Sulfate/ Dextrose (Magnesium Sulfate PREMIX 2GM) 50 ml @ 25 mls/hr 1X ONCE IV Last administered on 08/22/16 13:54; Start 08/22/16 at 09:30; Stop 08/22/16 at 11:29; Status DC Sulfur Hexafluoride Microspheres (Lumason) 25 mg STK-MED ONCE IVP ; Start at 10:32; Stop 08/22/16 at 10:33; Status DC Diltiazem HCl (Diltiazem 24hr Cd) 300 mg DAILY PO Last administered on 08:41; Start 08/23/16 at 09:00 Sulfur Hexafluoride Microspheres 25 mg 25 mg STK-MED ONCE IVP ; Start 08/22/16 at 10:30; Stop 08/23/16 at 08:40; Status DC Magnesium Sulfate/ Dextrose (Magnesium Sulfate PREMIX 2GM) 50 ml @ 25 mls/hr 1X ONCE IV ; Start 08/23/16 at 16:30; Stop 08/23/16 at 16:34; Status DC Carvedilol (Coreg) 3.125 mg BIDWMEALS PO Last administered on 08/25/16 08:42; Start 08/24/16 at 17:00 Sennosides (Senna) 17.2 mg PRN BID PRN PO CONSTIPATION; Start 08/24/16 at 19:15 Active Scripts Active Reported Aspirin 325 Mg Tablet 1 Tab PO DAILY Atenolol 25 Mg Tablet 1 Tab PO DAILY Enalapril Maleate 20 Mg Tablet 1 Tab PO BID Vitals/I & O Vital Sign - Last 24 Hours 08/24/16 08/24/16 08/24/16 08/24/16 14:43 15:04 16:54 19:43 Temp 97.5 97.8 97.5 97.8 Pulse 91 91 83 Resp 20 B/P 104/66 104/66 113/67 Pulse Ox 92 94 95 O2 Delivery Nasal Cannula Nasal Cannula Nasal Cannula O2 Flow Rate 4.0 4.0 08/24/16 08/24/16 08/24/16 08/25/16 19:53 20:40 23:32 03:16 Temp 98.3 98.1 98.3 98.1 Pulse 89 72 Resp 18 18 B/P 103/60 107/72 Pulse Ox 94 97 95 O2 Delivery Nasal Cannula Nasal Cannula Nasal Cannula Nasal Cannula O2 Flow Rate 4.0 4.0 4.0 4.0 08/25/16 08/25/16 08/25/16 08/25/16 07:00 08:07 08:20 08:41 Temp 98.0 98.0 Pulse 93 61 Resp 20 B/P 122/77 122/77 Pulse Ox 93 93 O2 Delivery Nasal Cannula Nasal Cannula Nasal Cannula O2 Flow Rate 3.0 3.0 08/25/16 08/25/16 08/25/16 08/25/16 08:42 08:42 08:42 10:42 Temp 97.8 97.8 Pulse 93 93 93 74 Resp 18 B/P 122/77 122/77 122/77 121/69 Pulse Ox 93 O2 Delivery Nasal Cannula 08/25/16 11:53 Pulse Ox 93 O2 Delivery Nasal Cannula O2 Flow Rate 3.0 Intake and Output 08/24/16 08/24/16 08/25/16 15:00 23:00 07:00 Intake Total 2120 ml 400 ml Balance 2120 ml 400 ml BRITTNEY LAMB III, DO Aug 25, 2016 12:15
--- NOTE | 2016-08-25 12:45 | PDOC ---
LAUREN ROBERTSON VALUE STREAM MANAGER 08/25/16 1245: CARDIO Progress Notes Date and Time Date of Service 08/25/16 Time of Evaluation 1120 Subjective Subjective: No Chest Pain, No shortness of breath, No Palpitations, Other (no complaints ) Vitals Vitals Vital Signs Date Time Temp Pulse Resp B/P Pulse Ox O2 Delivery O2 Flow Rate FiO2 08/25/16 11:53 93 Nasal Cannula 3.0 08/25/16 10:42 97.8 74 18 121/69 97.8 Weight Weight [ ] Input and Output Intake and Output Intake and Output 08/25/16 07:00 Intake Total 2520 ml Balance 2520 ml Intake Oral 2520 ml # Voids 6 Laboratory Labs Laboratory Tests Test 08/25/16 05:30 White Blood Count 9.1x10^3/uL (4.0-11.0) Red Blood Count 5.06x10^6/uL (4.30-5.70) Hemoglobin 12.0g/dL (13.0-17.5) Hematocrit 38.3% (39.0-53.0) Mean Corpuscular Volume 76fL (79-100) Mean Corpuscular Hemoglobin 24pg (25-35) Mean Corpuscular Hemoglobin Concent 31g/dL (31-37) Red Cell Distribution Width 17.5% (11.5-14.5) Platelet Count 197x10^3/uL (140-400) Neutrophils (%) (Auto) 71% (31-73) Lymphocytes (%) (Auto) 10% (24-48) Monocytes (%) (Auto) 17% (0-9) Eosinophils (%) (Auto) 2% (0-3) Basophils (%) (Auto) 1% (0-3) Neutrophils # (Auto) 6.5x10^3uL (1.8-7.7) Lymphocytes # (Auto) 0.9x10^3/uL (1.0-4.8) Monocytes # (Auto) 1.5x10^3/uL (0.0-1.1) Eosinophils # (Auto) 0.1x10^3/uL (0.0-0.7) Basophils # (Auto) 0.0x10^3/uL (0.0-0.2) Sodium Level 136mmol/L (136-145) Potassium Level 4.6mmol/L (3.5-5.1) Chloride Level 95mmol/L (98-107) Carbon Dioxide Level 43mmol/L (21-32) Anion Gap (6-14) Blood Urea Nitrogen 9mg/dL (8-26) Creatinine 0.8mg/dL (0.7-1.3) Estimated GFR (Cockcroft-Gault) 100.7 Glucose Level 104mg/dL (70-99) Calcium Level 8.4mg/dL (8.5-10.1) Physical Exam HEENT: Neck Supple W Full Motion Chest: Symmetric LUNGS: Other (diminished bases ) Heart: S1S2, irregularly irregular, other (distant heart tones) Abdomen: Other (obese ) Extremities: Other (3+ bilateral LE edema. LE erythema ) Neurology: alert, oriented, follow commands Assessment Assessment 1. Acute systolic HF echo with depressed LV function- EF 30-35% significant UOP overnight; LE edema persists continue with diuresis given h/o CAD and abnormal echo, recommend cardiac cath. B/R/A discussed with patient and is agreeable. Plan for cardiac cath in am. 2. AFIB RVR, new onset rate well-controlled; continue current therapy Eliquis for stroke prophylaxis. 3. Acute respiratory failure tx per pulm 4. CAD PCI/stent 2005. stable. CP free cath in am 5. HTN well controlled. continue current therapy 6. DM-2 per PCP 7. Obesity ? hypoventilation syndrome/JETT RADHA BANERJEE MD 08/25/16 1711: CARDIO Progress Notes Assessment Assessment Patient seen and examined. Agree with AUXILIARY PLANT OPERATOR's assessment and plan. Acute on chronic systolic heart failure better compensated with diuresis. Atrial fibrillation rate controlled. Plan for cardiac catheterization tomorrow. Risks and benefits were explained. LAUREN ROBERTSON APRN Aug 25, 2016 12:45 RADHA BANERJEE MD Aug 25, 2016 17:11
[2016-08-25 15:00] VITALS: BP 103/61
--- NOTE | 2016-08-25 15:27 | PDOC ---
PULMONARY PROGRESS NOTES Subjective pt not more soa Vitals Vital Signs Date Time Temp Pulse Resp B/P Pulse Ox O2 Delivery O2 Flow Rate FiO2 08/25/16 11:53 93 Nasal Cannula 3.0 08/25/16 10:42 97.8 74 18 121/69 97.8 ROS: No Nausea, No Chest Pain, No Abdominal Pain Lungs: Crackles (Slight crackles bilaterally), Other (No wheezing) Cardiovascular: S1 Abdomen: Soft, Other (obese) Neuro Exam: Alert Extremities: Other (2+edema) Skin: Warm Labs Laboratory Tests Test 08/24/16 05:50 08/25/16 05:30 White Blood Count 10.2x10^3/uL (4.0-11.0) 9.1x10^3/uL (4.0-11.0) Red Blood Count 5.04x10^6/uL (4.30-5.70) 5.06x10^6/uL (4.30-5.70) Hemoglobin 12.1g/dL (13.0-17.5) 12.0g/dL (13.0-17.5) Hematocrit 38.6% (39.0-53.0) 38.3% (39.0-53.0) Mean Corpuscular Volume 77fL (79-100) 76fL (79-100) Mean Corpuscular Hemoglobin 24pg (25-35) 24pg (25-35) Mean Corpuscular Hemoglobin Concent 31g/dL (31-37) 31g/dL (31-37) Red Cell Distribution Width 17.4% (11.5-14.5) 17.5% (11.5-14.5) Platelet Count 200x10^3/uL (140-400) 197x10^3/uL (140-400) Neutrophils (%) (Auto) 73% (31-73) 71% (31-73) Lymphocytes (%) (Auto) 10% (24-48) 10% (24-48) Monocytes (%) (Auto) 16% (0-9) 17% (0-9) Eosinophils (%) (Auto) 1% (0-3) 2% (0-3) Basophils (%) (Auto) 1% (0-3) 1% (0-3) Neutrophils # (Auto) 7.4x10^3uL (1.8-7.7) 6.5x10^3uL (1.8-7.7) Lymphocytes # (Auto) 1.0x10^3/uL (1.0-4.8) 0.9x10^3/uL (1.0-4.8) Monocytes # (Auto) 1.6x10^3/uL (0.0-1.1) 1.5x10^3/uL (0.0-1.1) Eosinophils # (Auto) 0.1x10^3/uL (0.0-0.7) 0.1x10^3/uL (0.0-0.7) Basophils # (Auto) 0.1x10^3/uL (0.0-0.2) 0.0x10^3/uL (0.0-0.2) Sodium Level 139mmol/L (136-145) 136mmol/L (136-145) Potassium Level 4.7mmol/L (3.5-5.1) 4.6mmol/L (3.5-5.1) Chloride Level 96mmol/L (98-107) 95mmol/L (98-107) Carbon Dioxide Level > 45mmol/L (21-32) 43mmol/L (21-32) Anion Gap (6-14) (6-14) Blood Urea Nitrogen 10mg/dL (8-26) 9mg/dL (8-26) Creatinine 0.8mg/dL (0.7-1.3) 0.8mg/dL (0.7-1.3) Estimated GFR (Cockcroft-Gault) 100.7 100.7 Glucose Level 105mg/dL (70-99) 104mg/dL (70-99) Calcium Level 8.4mg/dL (8.5-10.1) 8.4mg/dL (8.5-10.1) Magnesium Level 1.8mg/dL (1.8-2.4) Laboratory Tests Test 08/25/16 05:30 White Blood Count 9.1x10^3/uL (4.0-11.0) Red Blood Count 5.06x10^6/uL (4.30-5.70) Hemoglobin 12.0g/dL (13.0-17.5) Hematocrit 38.3% (39.0-53.0) Mean Corpuscular Volume 76fL (79-100) Mean Corpuscular Hemoglobin 24pg (25-35) Mean Corpuscular Hemoglobin Concent 31g/dL (31-37) Red Cell Distribution Width 17.5% (11.5-14.5) Platelet Count 197x10^3/uL (140-400) Neutrophils (%) (Auto) 71% (31-73) Lymphocytes (%) (Auto) 10% (24-48) Monocytes (%) (Auto) 17% (0-9) Eosinophils (%) (Auto) 2% (0-3) Basophils (%) (Auto) 1% (0-3) Neutrophils # (Auto) 6.5x10^3uL (1.8-7.7) Lymphocytes # (Auto) 0.9x10^3/uL (1.0-4.8) Monocytes # (Auto) 1.5x10^3/uL (0.0-1.1) Eosinophils # (Auto) 0.1x10^3/uL (0.0-0.7) Basophils # (Auto) 0.0x10^3/uL (0.0-0.2) Sodium Level 136mmol/L (136-145) Potassium Level 4.6mmol/L (3.5-5.1) Chloride Level 95mmol/L (98-107) Carbon Dioxide Level 43mmol/L (21-32) Anion Gap (6-14) Blood Urea Nitrogen 9mg/dL (8-26) Creatinine 0.8mg/dL (0.7-1.3) Estimated GFR (Cockcroft-Gault) 100.7 Glucose Level 104mg/dL (70-99) Calcium Level 8.4mg/dL (8.5-10.1) Medications Active Scripts Medications Dose Route/Sig Days Date Category Aspirin 325 Mg Tablet 1 Tab PO DAILY 08/19/16 Reported Atenolol 25 Mg Tablet 1 Tab PO DAILY 08/19/16 Reported Enalapril Maleate 20 Mg Tablet 1 Tab PO BID 08/19/16 Reported Impression . 1. Acute hypoxic respiratory failure, multifactorial 2. Marked obesity with chronic hypercapnia, suspect underlying obesity hypoventilation syndrome and suspected obstructive sleep apnea. 3. History of myocardial infarction in 2006 and coronary artery disease. 4. Weight gain of 20 pounds in the last 4 days, also contributing to his symptoms. 5. Abnormal chest x-ray consistent with congestive heart failure. 6. Sec pulmonary HTN ECHO Left ventricle systolic function is moderately to severely impaired. The Ejection Fraction is 30-35%. There is severe hypokinesis in the basal through mid inferosrptal wall. The inferior wall appears severely hypokinetic as well. All othe mayers appear moderately hypokinetic. Doppler and Color Flow revealed mild tricuspid regurgitation.The pulmonary artery systolic pressure is estimated at 58 mmHg. There is moderate pulmonary hypertension. Severely limited images due to body habitus despite contrast use. Consider REBECA if clinically indicated. Plan . resp status improved 1. diurese 2. cath in am 3. Follow up chest x-ray 4. Echo report noted 5. outpt sleep study 6. Weight loss is advised to the patient. DEVONTE HONEYCUTT MD Aug 25, 2016 15:27
[2016-08-25 19:05] VITALS: BP 111/74
[2016-08-25] MEDS: FAMOTIDINE 20 MG TABLET. PO SCH (21:24)
[2016-08-25 23:11] VITALS: BP 110/77
[2016-08-26] VITALS (15 sets, daily range): BP systolic 105–138; BP diastolic 61–76
[2016-08-26 05:41] LABS: BASO # 0.1 x10^3/uL (0.0-0.2); BASO % 1 % (0-3); EOS % 1 % (0-3); HEMOGLOBIN 11.6 g/dL (13.0-17.5); LYMPH # 0.9 x10^3/uL (1.0-4.8); LYMPH % 11 % (24-48); MEAN CORPUSCULAR HEMOGLOBIN 24 pg (25-35); MEAN CORPUSCULAR HGB CONC 30 g/dL (31-37); MEAN CORPUSCULAR VOLUME 78 fL (79-100); MONO % 16 % (0-9); NEUT % 71 % (31-73); PLATELET COUNT 186 x10^3/uL (140-400)
[2016-08-26 05:50] LABS: CALCIUM 8.3 mg/dL (8.5-10.1); CREATININE 0.7 mg/dL (0.7-1.3); GFR 117.5; POTASSIUM 4.5 mmol/L (3.5-5.1)
[2016-08-26] MEDS: IPRATRPIUM/ALBUTEROL 0.5/2.5MG 3 ML NEBU. NEB SCH ×4 (07:15→20:18)
[2016-08-26] MEDS: ANTI-COAG MONITOR BY PHARMACY. MC PRN (07:49)
[2016-08-26] MEDS: ASPIRIN ENTERIC COATED 81 MG TABLET.DR. PO SCH (08:15)
[2016-08-26] MEDS: CARVEDILOL 3.125 MG TABLET PO SCH ×2 (08:15→17:11)
[2016-08-26] MEDS: DIGOXIN 125 MCG TABLET PO SCH (08:16)
[2016-08-26] MEDS: LISINOPRIL 10 MG TABLET PO SCH (08:16)
[2016-08-26] MEDS: FUROSEMIDE 40 MG/4 ML VIAL IVP SCH ×2 (09:00→14:50)
[2016-08-26] MEDS: APIXABAN 5 MG TABLET. PO SCH ×2 (09:00→21:23)
[2016-08-26] MEDS: DILTIAZEM HCL 300 MG CAP.ER.24H PO SCH (09:14)
[2016-08-26] MEDS ORDERED: LIDOCAINE 2% 20 ML VIAL. ONE (10:10)
[2016-08-26] MEDS ORDERED: IOHEXOL 300 MG/ML 100ML VIAL. ONE ×2 (10:10→12:23)
[2016-08-26] MEDS ORDERED: NITROGLYCERIN 200 MCG/2 ML SYRINGE FOR CATH/VASC LAB. ONE (11:46)
[2016-08-26] MEDS ORDERED: FENTANYL PF 100 MCG/2 ML VIAL. ONE (11:46)
[2016-08-26] MEDS ORDERED: HEPARIN for IV BOLUS 10,000 UNIT/10 ML VIAL. ONE (11:46)
[2016-08-26] MEDS ORDERED: VERAPAMIL 5 MG/2 ML VIAL. ONE (11:46)
[2016-08-26] MEDS ORDERED: MIDAZOLAM HCL 2 MG/2 ML VIAL. ONE (11:46)
--- NOTE | 2016-08-26 12:11 | PDOC ---
PROGRESS NOTES Chief Complaint Chief Complaint CC: Shortness of breath 1. CHF - new 2. A fib 3. CAD 4. HTN 5. HLP 6. Morbid obesity 7. Hypoglycemia 8. Tobaccoism 9. Sleep apnea 10. Venous insufficiency History of Present Illness History of Present Illness Patient was lying in the bed at the time of evaluation, had no acute events overnight, had no new complains, shortness of breath continuously improving . He reports feeling better, waiting for cardiac catheterization procedure today, plan discussed with patient and RN. Vitals Vitals Vital Signs Date Time Temp Pulse Resp B/P Pulse Ox O2 Delivery O2 Flow Rate FiO2 08/26/16 11:21 97.7 77 20 126/72 93 Nasal Cannula 3.0 97.7 Physical Exam General: Alert, Oriented X3, Cooperative, No acute distress Heart: Regular rate, No murmurs Lungs: Crackles (Slight crackles bilaterally), Other (No wheezing) Abdomen: Soft, No tenderness Extremities: No cyanosis, Other (Improved bilateral LE edema ) Skin: No significant lesion, Other (venous stasis lesion of RLE- Dressing in tact with compression stockings) Labs LABS Laboratory Tests Test 08/26/16 05:20 White Blood Count 8.0x10^3/uL (4.0-11.0) Red Blood Count 4.90x10^6/uL (4.30-5.70) Hemoglobin 11.6g/dL (13.0-17.5) Hematocrit 38.0% (39.0-53.0) Mean Corpuscular Volume 78fL (79-100) Mean Corpuscular Hemoglobin 24pg (25-35) Mean Corpuscular Hemoglobin Concent 30g/dL (31-37) Red Cell Distribution Width 18.0% (11.5-14.5) Platelet Count 186x10^3/uL (140-400) Neutrophils (%) (Auto) 71% (31-73) Lymphocytes (%) (Auto) 11% (24-48) Monocytes (%) (Auto) 16% (0-9) Eosinophils (%) (Auto) 1% (0-3) Basophils (%) (Auto) 1% (0-3) Neutrophils # (Auto) 5.7x10^3uL (1.8-7.7) Lymphocytes # (Auto) 0.9x10^3/uL (1.0-4.8) Monocytes # (Auto) 1.2x10^3/uL (0.0-1.1) Eosinophils # (Auto) 0.1x10^3/uL (0.0-0.7) Basophils # (Auto) 0.1x10^3/uL (0.0-0.2) Sodium Level 136mmol/L (136-145) Potassium Level 4.5mmol/L (3.5-5.1) Chloride Level 95mmol/L (98-107) Carbon Dioxide Level 41mmol/L (21-32) Anion Gap 0 (6-14) Blood Urea Nitrogen 10mg/dL (8-26) Creatinine 0.7mg/dL (0.7-1.3) Estimated GFR (Cockcroft-Gault) 117.5 Glucose Level 98mg/dL (70-99) Calcium Level 8.3mg/dL (8.5-10.1) Review of Systems Review of Systems Awake, alert, in no acute respiratory distress, Afebrile, improved SOB, edema in legs reducing, Assessment and Plan Assessmemt and Plan ASSESSMENT: 1. CHF - new onset 2. A fib 3. CAD 4. HTN 5. HLD 6. Morbid obesity 7. Hypoglycemia 8. Tobaccoism 9. Sleep apnea 10. Venous insufficiency Plan: Continue Care per floor protocol Waiting for cardiac cath procedure to be done today Pulmonology is following, recommendations are appreciated Continue Diuresis and 02 Continue wound care Recheck labs in AM Continue PT/OT Problems Medical Problems: (1) Atrial fibrillation Status: Acute (2) CHF exacerbation Status: Acute (3) Dyspnea Status: Acute (4) Hypoxia Status: Acute (5) Obesity Status: Acute Problems: Comment Review of Relevant I have reviewed the following items johnna (where applicable) has been applied. Labs Laboratory Tests Test 08/25/16 05:30 08/26/16 05:20 White Blood Count 9.1x10^3/uL (4.0-11.0) 8.0x10^3/uL (4.0-11.0) Red Blood Count 5.06x10^6/uL (4.30-5.70) 4.90x10^6/uL (4.30-5.70) Hemoglobin 12.0g/dL (13.0-17.5) 11.6g/dL (13.0-17.5) Hematocrit 38.3% (39.0-53.0) 38.0% (39.0-53.0) Mean Corpuscular Volume 76fL (79-100) 78fL (79-100) Mean Corpuscular Hemoglobin 24pg (25-35) 24pg (25-35) Mean Corpuscular Hemoglobin Concent 31g/dL (31-37) 30g/dL (31-37) Red Cell Distribution Width 17.5% (11.5-14.5) 18.0% (11.5-14.5) Platelet Count 197x10^3/uL (140-400) 186x10^3/uL (140-400) Neutrophils (%) (Auto) 71% (31-73) 71% (31-73) Lymphocytes (%) (Auto) 10% (24-48) 11% (24-48) Monocytes (%) (Auto) 17% (0-9) 16% (0-9) Eosinophils (%) (Auto) 2% (0-3) 1% (0-3) Basophils (%) (Auto) 1% (0-3) 1% (0-3) Neutrophils # (Auto) 6.5x10^3uL (1.8-7.7) 5.7x10^3uL (1.8-7.7) Lymphocytes # (Auto) 0.9x10^3/uL (1.0-4.8) 0.9x10^3/uL (1.0-4.8) Monocytes # (Auto) 1.5x10^3/uL (0.0-1.1) 1.2x10^3/uL (0.0-1.1) Eosinophils # (Auto) 0.1x10^3/uL (0.0-0.7) 0.1x10^3/uL (0.0-0.7) Basophils # (Auto) 0.0x10^3/uL (0.0-0.2) 0.1x10^3/uL (0.0-0.2) Sodium Level 136mmol/L (136-145) 136mmol/L (136-145) Potassium Level 4.6mmol/L (3.5-5.1) 4.5mmol/L (3.5-5.1) Chloride Level 95mmol/L (98-107) 95mmol/L (98-107) Carbon Dioxide Level 43mmol/L (21-32) 41mmol/L (21-32) Anion Gap (6-14) 0 (6-14) Blood Urea Nitrogen 9mg/dL (8-26) 10mg/dL (8-26) Creatinine 0.8mg/dL (0.7-1.3) 0.7mg/dL (0.7-1.3) Estimated GFR (Cockcroft-Gault) 100.7 117.5 Glucose Level 104mg/dL (70-99) 98mg/dL (70-99) Calcium Level 8.4mg/dL (8.5-10.1) 8.3mg/dL (8.5-10.1) Laboratory Tests Test 08/26/16 05:20 White Blood Count 8.0x10^3/uL (4.0-11.0) Red Blood Count 4.90x10^6/uL (4.30-5.70) Hemoglobin 11.6g/dL (13.0-17.5) Hematocrit 38.0% (39.0-53.0) Mean Corpuscular Volume 78fL (79-100) Mean Corpuscular Hemoglobin 24pg (25-35) Mean Corpuscular Hemoglobin Concent 30g/dL (31-37) Red Cell Distribution Width 18.0% (11.5-14.5) Platelet Count 186x10^3/uL (140-400) Neutrophils (%) (Auto) 71% (31-73) Lymphocytes (%) (Auto) 11% (24-48) Monocytes (%) (Auto) 16% (0-9) Eosinophils (%) (Auto) 1% (0-3) Basophils (%) (Auto) 1% (0-3) Neutrophils # (Auto) 5.7x10^3uL (1.8-7.7) Lymphocytes # (Auto) 0.9x10^3/uL (1.0-4.8) Monocytes # (Auto) 1.2x10^3/uL (0.0-1.1) Eosinophils # (Auto) 0.1x10^3/uL (0.0-0.7) Basophils # (Auto) 0.1x10^3/uL (0.0-0.2) Sodium Level 136mmol/L (136-145) Potassium Level 4.5mmol/L (3.5-5.1) Chloride Level 95mmol/L (98-107) Carbon Dioxide Level 41mmol/L (21-32) Anion Gap 0 (6-14) Blood Urea Nitrogen 10mg/dL (8-26) Creatinine 0.7mg/dL (0.7-1.3) Estimated GFR (Cockcroft-Gault) 117.5 Glucose Level 98mg/dL (70-99) Calcium Level 8.3mg/dL (8.5-10.1) Medications Current Medications Albuterol/ Ipratropium (Duoneb) 3 ml 1X ONCE NEB Last administered on 13:29; Start 08/19/16 at 13:00; Stop 08/19/16 at 15:13; Status DC Furosemide (Lasix) 40 mg 1X ONCE IVP Last administered on 08/19/16 16:30; Start 08/19/16 at 14:15; Stop 08/19/16 at 15:13; Status DC Aspirin (Children'S Aspirin) 324 mg 1X ONCE PO Last administered on 08/19/16 16:29; Start 08/19/16 at 14:15; Stop 08/19/16 at 15:13; Status DC Ondansetron HCl (Zofran) 4 mg PRN Q8HRS PRN IV NAUSEA/VOMITING; Start 08/19/16 at 14:30; Stop 08/20/16 at 14:29; Status DC Morphine Sulfate 2 mg PRN Q2HR PRN IV PAIN; Start 08/19/16 at 14:30; Stop 08/20 at 14:29; Status DC Digoxin 500 mcg 500 mcg 1X ONCE IV Last administered on 08/20/16 09:51; Start 08/20/16 at 09:00; Stop 08/20/16 at 09:01; Status DC Diltiazem HCl/ Dextrose (Cardizem) 125 ml @ 0 mls/hr CONT PRN IV SEE I/O RECORD Last administered on 08/20/16 09:52; Start 08/20/16 at 08:45; Stop 08/21 at 17:20; Status DC Diltiazem HCl (Cardizem) 10 mg 1X ONCE IVP Last administered on 08/20/16 09: 51; Start 08/20/16 at 09:00; Stop 08/20/16 at 09:01; Status DC Aspirin (Ecotrin) 81 mg [id number] PO Last administered on 08/26/16 08:15; Start 08/20/16 at 10:00 Famotidine (Pepcid) 20 mg QHS PO Last administered on 08/25/16 21:24; Start at 21:00 Furosemide (Lasix) 40 mg DAILY PO Last administered on 08/21/16 09:28; Start 08/20/16 at 10:00; Stop 08/21/16 at 17:24; Status DC Lisinopril (Prinivil) 10 mg DAILY PO Last administered on 08/26/16 08:16; Start 08/20/16 at 10:00 Furosemide (Lasix) 40 mg BID92 PO ; Start 08/20/16 at 10:00; Stop 08/20/16 at 16 :20; Status DC Apixaban (Eliquis) 5 mg BID PO Last administered on 08/25/16 21:24; Start 08/20 at 11:00 Furosemide (Lasix) 40 mg 1X ONCE IVP Last administered on 08/20/16 12:35; Start 08/20/16 at 12:00; Stop 08/20/16 at 12:01; Status DC Albuterol/ Ipratropium (Duoneb) 3 ml RTQID NEB Last administered on 08/26/16 07 :15; Start 08/20/16 at 16:00 Diltiazem HCl (Cardizem 24hr Cd) 240 mg 1X ONCE PO Last administered on 22:22; Start 08/20/16 at 22:15; Stop 08/20/16 at 22:16; Status DC Furosemide (Lasix) 40 mg 1X ONCE IVP ; Start 08/21/16 at 10:00; Stop 08/21/16 at 10:01; Status DC Info (Anti-Coagulation Monitoring By Pharmacy) 1 each PRN DAILY PRN MC SEE COMMENTS Last administered on 08/26/16 07:49; Start 08/21/16 at 16:15 Diltiazem HCl (Cardizem 24hr Cd) 240 mg DAILY PO Last administered on 08:49; Start 08/22/16 at 09:00; Stop 08/22/16 at 14:59; Status DC Digoxin (Lanoxin) 500 mcg 1X ONCE PO Last administered on 08/21/16 18:22; Start 08/21/16 at 17:30; Stop 08/21/16 at 17:31; Status DC Digoxin (Lanoxin) 125 mcg DAILY PO Last administered on 08/26/16 08:16; Start 08/22/16 at 09:00 Furosemide 40 mg 40 mg BID92 IVP Last administered on 08/25/16 14:18; Start at 09:00 Magnesium Sulfate/ Dextrose (Magnesium Sulfate PREMIX 2GM) 50 ml @ 25 mls/hr 1X ONCE IV Last administered on 08/22/16 13:54; Start 08/22/16 at 09:30; Stop 08/22/16 at 11:29; Status DC Sulfur Hexafluoride Microspheres (Lumason) 25 mg STK-MED ONCE IVP ; Start at 10:32; Stop 08/22/16 at 10:33; Status DC Diltiazem HCl (Diltiazem 24hr Cd) 300 mg DAILY PO Last administered on 09:14; Start 08/23/16 at 09:00 Sulfur Hexafluoride Microspheres 25 mg 25 mg STK-MED ONCE IVP ; Start 08/22/16 at 10:30; Stop 08/23/16 at 08:40; Status DC Magnesium Sulfate/ Dextrose (Magnesium Sulfate PREMIX 2GM) 50 ml @ 25 mls/hr 1X ONCE IV ; Start 08/23/16 at 16:30; Stop 08/23/16 at 16:34; Status DC Carvedilol (Coreg) 3.125 mg BIDWMEALS PO Last administered on 08/26/16 08:15; Start 08/24/16 at 17:00 Sennosides (Senna) 17.2 mg PRN BID PRN PO CONSTIPATION; Start 08/24/16 at 19:15 Iohexol 100 ml 100 ml STK-MED ONCE .ROUTE ; Start 08/26/16 at 10:10; Stop at 10:11; Status DC Heparin Sodium/ Sodium Chloride 500 ml @ As Directed STK-MED ONCE .ROUTE ; Start 08/26/16 at 10:10; Stop 08/26/16 at 10:11; Status DC Lidocaine HCl 20 ml STK-MED ONCE .ROUTE ; Start 08/26/16 at 10:10; Stop 08/26/16 at 10:11; Status DC Nitroglycerin (Nitroglycerin) 200 mcg STK-MED ONCE .ROUTE ; Start 08/26/16 at 11: 46; Stop 08/26/16 at 11:47; Status DC Verapamil HCl (Verapamil) 5 mg STK-MED ONCE .ROUTE ; Start 08/26/16 at 11:46; Stop 08/26/16 at 11:47; Status DC Heparin Sodium (Porcine) 10,000 unit STK-MED ONCE .ROUTE ; Start 08/26/16 at 11: 46; Stop 08/26/16 at 11:47; Status DC Fentanyl Citrate (Fentanyl 2ml Vial) 100 mcg STK-MED ONCE .ROUTE ; Start at 11:46; Stop 08/26/16 at 11:47; Status DC Midazolam HCl (Versed) 2 mg STK-MED ONCE .ROUTE ; Start 08/26/16 at 11:46; Stop 08/26/16 at 11:47; Status DC Active Scripts Active Reported Aspirin 325 Mg Tablet 1 Tab PO DAILY Atenolol 25 Mg Tablet 1 Tab PO DAILY Enalapril Maleate 20 Mg Tablet 1 Tab PO BID Vitals/I & O Vital Sign - Last 24 Hours 08/25/16 08/25/16 08/25/16 08/25/16 15:00 15:50 17:05 19:05 Temp 98.2 98.0 98.2 98.0 Pulse 80 80 75 Resp 18 20 B/P 103/61 103/61 111/74 Pulse Ox 93 93 96 O2 Delivery Nasal Cannula Nasal Cannula Nasal Cannula O2 Flow Rate 3.0 3.0 08/25/16 08/25/16 08/25/16 08/26/16 20:09 21:16 23:11 02:38 Temp 98.3 97.5 98.3 97.5 Pulse 73 76 Resp 20 16 B/P 110/77 129/75 Pulse Ox 97 92 93 O2 Delivery Nasal Cannula Nasal Cannula Nasal Cannula Nasal Cannula O2 Flow Rate 3.0 3.0 3.0 3.0 08/26/16 08/26/16 08/26/16 08/26/16 07:16 07:29 08:00 08:15 Pulse 71 71 Resp 20 B/P 132/67 132/67 Pulse Ox 86 93 O2 Delivery Nasal Cannula Nasal Cannula Nasal Cannula O2 Flow Rate 3.0 3.0 3.0 08/26/16 08/26/16 08/26/16 08/26/16 08:16 08:16 09:14 11:21 Temp 97.7 97.7 Pulse 71 71 71 77 Resp 20 B/P 132/67 132/67 132/67 126/72 Pulse Ox 93 O2 Delivery Nasal Cannula O2 Flow Rate 3.0 Intake and Output 08/25/16 08/25/16 08/26/16 15:00 23:00 07:00 Intake Total 1100 ml 800 ml Balance 1100 ml 800 ml BRITTNEY LAMB III DO Aug 26, 2016 12:11
[2016-08-26] MEDS ORDERED: ADENOSINE 90 MG/30 ML VIAL. IV ONE ×2 (12:18→12:19)
[2016-08-26] MEDS ORDERED: VERAPAMIL 5 MG/2 ML VIAL. IART ONE (12:45)
[2016-08-26] MEDS ORDERED: ADENOSINE 90 MG in IV NORMAL SALINE 50ML 90 ML IV ONE (12:45)
[2016-08-26] MEDS ORDERED: HEPARIN for IV BOLUS 10,000 UNIT/10 ML VIAL. IART ONE (12:45)
[2016-08-26] MEDS ORDERED: NITROGLYCERIN 200 MCG/2 ML SYRINGE FOR CATH/VASC LAB. IART ONE (12:45)
[2016-08-26] MEDS ORDERED: LIDOCAINE 2% 20 ML VIAL. IJ ONE (12:45)
[2016-08-26] MEDS ORDERED: IOHEXOL 300 MG/ML 100ML VIAL. IART ONE (12:45)
[2016-08-26] MEDS ORDERED: HEPARIN for IV BOLUS 10,000 UNIT/10 ML VIAL. IV ONE (12:45)
--- NOTE | 2016-08-26 12:48 | PDOC ---
MODERATE SEDATION ASSESSMENT RISKS/ALTERNATIVES Risks/Alternatives Risks and alternatives of this type of sedation and procedure discussed with: RISK/ALTERNATIVES: Patient H & P ON CHART H & P H & P on chart and reviewed for co-morbid conditions and appropriate labs. H&P ON CHART: Yes STATUS PREG STATUS ASSESSED: N/A MEDS/ALLERGIES REVIEWED Meds/Allergies Reviewed Medications and Allergies including time and route of recently administered narcotics and sedatives. MEDS/ALLERGIES REVIEWED: Yes ASA RATING ASA RATING: II AIRWAY ASSESSMENT Airway Assessment Airway patency, oral function limitations, presence of caps, crowns, dentures, partials, and ability to extend neck assessed. AIRWAY ASSESSMENT: Yes MALLAMPATI SCORE MALLAMPATI SCORE: II PRE-SEDATION ASSESSMENT PRE-SEDATION ASSESSMENT: Yes RADHA BANERJEE MD Aug 26, 2016 12:48
--- NOTE | 2016-08-26 12:57 | CARD ---
APPROVED REPORT Procedure(s) performed: 1. Left heart catheterization and selective coronary angiography via right t ransradial approach 2. Fractional flow reserve measurement to the right coronary artery INDICATION The indication(s) include : Acute on chronic systolic heart failure, unstable angina. PROCEDURE NARRATIVE After explaining the risks, benefits and alternative options, informed consent was obtained from piero ent. Patient was brought to the cardiac Sandwich Counter Attendant and right wrist was prepped and draped in the usual fashion after confirming a positive modified Walter's test. Arterial access was obtained in the rig t radial artery and a 6 Chinese sheath was inserted. 6 Chinese Shin catheter was used to perform portillo ective angiography of the left and right coronary arteries. Since patient was found to have angiograp hically borderline significant stenosis involving his right coronary artery, a decision was made to p erform fractional flow reserve measurement to assess the physiologic significance of this stenosis. S ubsequently, the right coronary artery was engaged with a 6 Chinese JR4 guide catheter and the stenosi s in the distal segment was crossed with [employer]. FFR measurement was made after administering intravenous adenosine per protocol. This came back physiologically not significant at 0.95 and hence no intervention was performed on this stenosis. Patient tolerated the procedure well. Hemostasis was achieved using TR band. There were no immediate complications. The following findin gs were noted. FINDINGS 1. Hemodynamics: Left ventricular end-diastolic pressure of 20 mmHg. No pullback gradient across th e aortic valve. 2. Coronary angiography: a. The left main coronary artery arose from the left sinus of Valsalva, gave rise to the left anteri or descending, ramus intermedius and left circumflex arteries and did not show any significant stenos is. b. The left anterior descending artery did not show any significant stenosis. The diagonal branch sh owed 30% stenosis in proximal segment. c. The left circumflex artery was a small vessel and did not show any significant stenosis. d. The ramus intermedius artery was a large caliber vessel that did not show any significant stenosi s. d. The right coronary artery was a large and dominant vessel arising from the right sinus of Valsalv a that showed 60% stenosis in the distal segment there was found to be physiologically not significan t based on FFR measurement of 0.95. Conclusion Nonobstructive coronary artery disease, 60% stenosis of right coronary artery there was found to be p hysiologically not significant based on FFR measurement. Recommendations Optimization of medical therapy for non-ischemic cardiomyopathy and repeat 2-D echocardiogram in 3 mo nths.
[2016-08-26] MEDS ORDERED: FENTANYL PF 100 MCG/2 ML VIAL. IV ONE (13:00)
[2016-08-26] MEDS ORDERED: MIDAZOLAM HCL 2 MG/2 ML VIAL. IV ONE (13:00)
[2016-08-26] MEDS: NYSTATIN TOPICAL POWDER 15GM BOTTLE. TP SCH ×2 (17:11→21:23)
[2016-08-26] MEDS: FAMOTIDINE 20 MG TABLET. PO SCH (21:23)
[2016-08-27 03:40] VITALS: BP 137/72
[2016-08-27 06:59] LABS: BASO % 1 % (0-3); EOS % 1 % (0-3); HEMATOCRIT 38.9 % (39.0-53.0); LYMPH # 0.8 x10^3/uL (1.0-4.8); LYMPH % 11 % (24-48); MEAN CORPUSCULAR HEMOGLOBIN 24 pg (25-35); MEAN CORPUSCULAR HGB CONC 31 g/dL (31-37); MEAN CORPUSCULAR VOLUME 77 fL (79-100); MONO % 14 % (0-9); NEUT % 74 % (31-73); PLATELET COUNT 188 x10^3/uL (140-400); RED BLOOD COUNT 5.07 x10^6/uL (4.30-5.70); RED CELL DISTRIBUTION WIDTH 18.1 % (11.5-14.5); WHITE BLOOD COUNT 7.4 x10^3/uL (4.0-11.0)
[2016-08-27 07:00] VITALS: BP 149/80
[2016-08-27] MEDS: IPRATRPIUM/ALBUTEROL 0.5/2.5MG 3 ML NEBU. NEB SCH ×3 (07:06→15:53)
[2016-08-27 07:09] LABS: CALCIUM 8.4 mg/dL (8.5-10.1); CREATININE 0.7 mg/dL (0.7-1.3); GFR 117.5; POTASSIUM 4.6 mmol/L (3.5-5.1)
[2016-08-27] MEDS: NYSTATIN TOPICAL POWDER 15GM BOTTLE. TP SCH (08:34)
[2016-08-27] MEDS: ASPIRIN ENTERIC COATED 81 MG TABLET.DR. PO SCH (08:35)
[2016-08-27] MEDS: APIXABAN 5 MG TABLET. PO SCH (08:35)
[2016-08-27] MEDS: FUROSEMIDE 40 MG/4 ML VIAL IVP SCH ×2 (08:35→14:00)
[2016-08-27] MEDS: CARVEDILOL 3.125 MG TABLET PO SCH (08:36)
[2016-08-27] MEDS: DIGOXIN 125 MCG TABLET PO SCH (08:36)
[2016-08-27] MEDS: DILTIAZEM HCL 300 MG CAP.ER.24H PO SCH (08:37)
[2016-08-27] MEDS: LISINOPRIL 10 MG TABLET PO SCH (08:37)
[2016-08-27 11:00] VITALS: BP 142/79
--- NOTE | 2016-08-27 11:19 | PDOC ---
PROGRESS NOTES Chief Complaint Chief Complaint CC: Shortness of breath 1. CHF - new 2. A fib 3. CAD 4. HTN 5. HLP 6. Morbid obesity 7. Hypoglycemia 8. Tobaccoism 9. Sleep apnea 10. Venous insufficiency History of Present Illness History of Present Illness Patient was lying in the bed at the time of evaluation, is in no acute distress , He reports feeling better, reported no trouble in breathing and can walk comfortably, plan discussed with patient and RN. Vitals Vitals Vital Signs Date Time Temp Pulse Resp B/P Pulse Ox O2 Delivery O2 Flow Rate FiO2 08/27/16 08:37 84 149/80 08/27/16 08:00 Nasal Cannula 3.0 08/27/16 07:07 92 08/27/16 07:00 98.4 18 98.4 Physical Exam General: Alert, Oriented X3, Cooperative, No acute distress Heart: Regular rate, No murmurs Lungs: Crackles (Slight crackles bilaterally), Other (No wheezing) Abdomen: Soft, No tenderness Extremities: No cyanosis, Other (Improved bilateral LE edema ) Skin: No significant lesion, Other (venous stasis lesion of RLE- Dressing in tact with compression stockings) Labs LABS Laboratory Tests Test 08/27/16 06:30 White Blood Count 7.4x10^3/uL (4.0-11.0) Red Blood Count 5.07x10^6/uL (4.30-5.70) Hemoglobin 12.0g/dL (13.0-17.5) Hematocrit 38.9% (39.0-53.0) Mean Corpuscular Volume 77fL (79-100) Mean Corpuscular Hemoglobin 24pg (25-35) Mean Corpuscular Hemoglobin Concent 31g/dL (31-37) Red Cell Distribution Width 18.1% (11.5-14.5) Platelet Count 188x10^3/uL (140-400) Neutrophils (%) (Auto) 74% (31-73) Lymphocytes (%) (Auto) 11% (24-48) Monocytes (%) (Auto) 14% (0-9) Eosinophils (%) (Auto) 1% (0-3) Basophils (%) (Auto) 1% (0-3) Neutrophils # (Auto) 5.4x10^3uL (1.8-7.7) Lymphocytes # (Auto) 0.8x10^3/uL (1.0-4.8) Monocytes # (Auto) 1.0x10^3/uL (0.0-1.1) Eosinophils # (Auto) 0.0x10^3/uL (0.0-0.7) Basophils # (Auto) 0.0x10^3/uL (0.0-0.2) Sodium Level 137mmol/L (136-145) Potassium Level 4.6mmol/L (3.5-5.1) Chloride Level 97mmol/L (98-107) Carbon Dioxide Level 39mmol/L (21-32) Anion Gap 1 (6-14) Blood Urea Nitrogen 11mg/dL (8-26) Creatinine 0.7mg/dL (0.7-1.3) Estimated GFR (Cockcroft-Gault) 117.5 Glucose Level 97mg/dL (70-99) Calcium Level 8.4mg/dL (8.5-10.1) Review of Systems Review of Systems No SOB, No CP, afebrile, can walk comfortably, Assessment and Plan Assessmemt and Plan ASSESSMENT: 1. CHF - new onset 2. A fib 3. CAD 4. HTN 5. HLD 6. Morbid obesity 7. Hypoglycemia 8. Tobaccoism 9. Sleep apnea 10. Venous insufficiency Plan: - Continue Care per floor protocol - Cardiac Cath procedure done yesterday, discussed with pt. - Probable discharge today if subspecialities ok with it - Continue Diuresis and 02 - Continue wound care - Recheck labs in AM, if no discharge today - PT/OT Problems Medical Problems: (1) Atrial fibrillation Status: Acute (2) CHF exacerbation Status: Acute (3) Dyspnea Status: Acute (4) Hypoxia Status: Acute (5) Obesity Status: Acute Problems: Comment Review of Relevant I have reviewed the following items johnna (where applicable) has been applied. Labs Laboratory Tests Test 08/26/16 05:20 08/27/16 06:30 White Blood Count 8.0x10^3/uL (4.0-11.0) 7.4x10^3/uL (4.0-11.0) Red Blood Count 4.90x10^6/uL (4.30-5.70) 5.07x10^6/uL (4.30-5.70) Hemoglobin 11.6g/dL (13.0-17.5) 12.0g/dL (13.0-17.5) Hematocrit 38.0% (39.0-53.0) 38.9% (39.0-53.0) Mean Corpuscular Volume 78fL (79-100) 77fL (79-100) Mean Corpuscular Hemoglobin 24pg (25-35) 24pg (25-35) Mean Corpuscular Hemoglobin Concent 30g/dL (31-37) 31g/dL (31-37) Red Cell Distribution Width 18.0% (11.5-14.5) 18.1% (11.5-14.5) Platelet Count 186x10^3/uL (140-400) 188x10^3/uL (140-400) Neutrophils (%) (Auto) 71% (31-73) 74% (31-73) Lymphocytes (%) (Auto) 11% (24-48) 11% (24-48) Monocytes (%) (Auto) 16% (0-9) 14% (0-9) Eosinophils (%) (Auto) 1% (0-3) 1% (0-3) Basophils (%) (Auto) 1% (0-3) 1% (0-3) Neutrophils # (Auto) 5.7x10^3uL (1.8-7.7) 5.4x10^3uL (1.8-7.7) Lymphocytes # (Auto) 0.9x10^3/uL (1.0-4.8) 0.8x10^3/uL (1.0-4.8) Monocytes # (Auto) 1.2x10^3/uL (0.0-1.1) 1.0x10^3/uL (0.0-1.1) Eosinophils # (Auto) 0.1x10^3/uL (0.0-0.7) 0.0x10^3/uL (0.0-0.7) Basophils # (Auto) 0.1x10^3/uL (0.0-0.2) 0.0x10^3/uL (0.0-0.2) Sodium Level 136mmol/L (136-145) 137mmol/L (136-145) Potassium Level 4.5mmol/L (3.5-5.1) 4.6mmol/L (3.5-5.1) Chloride Level 95mmol/L (98-107) 97mmol/L (98-107) Carbon Dioxide Level 41mmol/L (21-32) 39mmol/L (21-32) Anion Gap 0 (6-14) 1 (6-14) Blood Urea Nitrogen 10mg/dL (8-26) 11mg/dL (8-26) Creatinine 0.7mg/dL (0.7-1.3) 0.7mg/dL (0.7-1.3) Estimated GFR (Cockcroft-Gault) 117.5 117.5 Glucose Level 98mg/dL (70-99) 97mg/dL (70-99) Calcium Level 8.3mg/dL (8.5-10.1) 8.4mg/dL (8.5-10.1) Laboratory Tests Test 08/27/16 06:30 White Blood Count 7.4x10^3/uL (4.0-11.0) Red Blood Count 5.07x10^6/uL (4.30-5.70) Hemoglobin 12.0g/dL (13.0-17.5) Hematocrit 38.9% (39.0-53.0) Mean Corpuscular Volume 77fL (79-100) Mean Corpuscular Hemoglobin 24pg (25-35) Mean Corpuscular Hemoglobin Concent 31g/dL (31-37) Red Cell Distribution Width 18.1% (11.5-14.5) Platelet Count 188x10^3/uL (140-400) Neutrophils (%) (Auto) 74% (31-73) Lymphocytes (%) (Auto) 11% (24-48) Monocytes (%) (Auto) 14% (0-9) Eosinophils (%) (Auto) 1% (0-3) Basophils (%) (Auto) 1% (0-3) Neutrophils # (Auto) 5.4x10^3uL (1.8-7.7) Lymphocytes # (Auto) 0.8x10^3/uL (1.0-4.8) Monocytes # (Auto) 1.0x10^3/uL (0.0-1.1) Eosinophils # (Auto) 0.0x10^3/uL (0.0-0.7) Basophils # (Auto) 0.0x10^3/uL (0.0-0.2) Sodium Level 137mmol/L (136-145) Potassium Level 4.6mmol/L (3.5-5.1) Chloride Level 97mmol/L (98-107) Carbon Dioxide Level 39mmol/L (21-32) Anion Gap 1 (6-14) Blood Urea Nitrogen 11mg/dL (8-26) Creatinine 0.7mg/dL (0.7-1.3) Estimated GFR (Cockcroft-Gault) 117.5 Glucose Level 97mg/dL (70-99) Calcium Level 8.4mg/dL (8.5-10.1) Medications Current Medications Albuterol/ Ipratropium (Duoneb) 3 ml 1X ONCE NEB Last administered on 13:29; Start 08/19/16 at 13:00; Stop 08/19/16 at 15:13; Status DC Furosemide (Lasix) 40 mg 1X ONCE IVP Last administered on 08/19/16 16:30; Start 08/19/16 at 14:15; Stop 08/19/16 at 15:13; Status DC Aspirin (Children'S Aspirin) 324 mg 1X ONCE PO Last administered on 08/19/16 16:29; Start 08/19/16 at 14:15; Stop 08/19/16 at 15:13; Status DC Ondansetron HCl (Zofran) 4 mg PRN Q8HRS PRN IV NAUSEA/VOMITING; Start 08/19/16 at 14:30; Stop 08/20/16 at 14:29; Status DC Morphine Sulfate 2 mg PRN Q2HR PRN IV PAIN; Start 08/19/16 at 14:30; Stop 08/20 at 14:29; Status DC Digoxin 500 mcg 500 mcg 1X ONCE IV Last administered on 08/20/16 09:51; Start 08/20/16 at 09:00; Stop 08/20/16 at 09:01; Status DC Diltiazem HCl/ Dextrose (Cardizem) 125 ml @ 0 mls/hr CONT PRN IV SEE I/O RECORD Last administered on 08/20/16 09:52; Start 08/20/16 at 08:45; Stop 08/21 at 17:20; Status DC Diltiazem HCl (Cardizem) 10 mg 1X ONCE IVP Last administered on 08/20/16 09: 51; Start 08/20/16 at 09:00; Stop 08/20/16 at 09:01; Status DC Aspirin (Ecotrin) 81 mg [id number] PO Last administered on 08/27/16 08:35; Start 08/20/16 at 10:00 Famotidine (Pepcid) 20 mg QHS PO Last administered on 08/26/16 21:23; Start at 21:00 Furosemide (Lasix) 40 mg DAILY PO Last administered on 08/21/16 09:28; Start 08/20/16 at 10:00; Stop 08/21/16 at 17:24; Status DC Lisinopril (Prinivil) 10 mg DAILY PO Last administered on 08/27/16 08:37; Start 08/20/16 at 10:00 Furosemide (Lasix) 40 mg BID92 PO ; Start 08/20/16 at 10:00; Stop 08/20/16 at 16 :20; Status DC Apixaban (Eliquis) 5 mg BID PO Last administered on 08/27/16 08:35; Start 08/20 at 11:00 Furosemide (Lasix) 40 mg 1X ONCE IVP Last administered on 08/20/16 12:35; Start 08/20/16 at 12:00; Stop 08/20/16 at 12:01; Status DC Albuterol/ Ipratropium (Duoneb) 3 ml RTQID NEB Last administered on 08/27/16 11 :09; Start 08/20/16 at 16:00 Diltiazem HCl (Cardizem 24hr Cd) 240 mg 1X ONCE PO Last administered on 22:22; Start 08/20/16 at 22:15; Stop 08/20/16 at 22:16; Status DC Furosemide (Lasix) 40 mg 1X ONCE IVP ; Start 08/21/16 at 10:00; Stop 08/21/16 at 10:01; Status DC Info (Anti-Coagulation Monitoring By Pharmacy) 1 each PRN DAILY PRN MC SEE COMMENTS Last administered on 08/26/16 07:49; Start 08/21/16 at 16:15 Diltiazem HCl (Cardizem 24hr Cd) 240 mg DAILY PO Last administered on 08:49; Start 08/22/16 at 09:00; Stop 08/22/16 at 14:59; Status DC Digoxin (Lanoxin) 500 mcg 1X ONCE PO Last administered on 08/21/16 18:22; Start 08/21/16 at 17:30; Stop 08/21/16 at 17:31; Status DC Digoxin (Lanoxin) 125 mcg DAILY PO Last administered on 08/27/16 08:36; Start 08/22/16 at 09:00 Furosemide 40 mg 40 mg BID92 IVP Last administered on 08/27/16 08:35; Start at 09:00 Magnesium Sulfate/ Dextrose (Magnesium Sulfate PREMIX 2GM) 50 ml @ 25 mls/hr 1X ONCE IV Last administered on 08/22/16 13:54; Start 08/22/16 at 09:30; Stop 08/22/16 at 11:29; Status DC Sulfur Hexafluoride Microspheres (Lumason) 25 mg STK-MED ONCE IVP ; Start at 10:32; Stop 08/22/16 at 10:33; Status DC Diltiazem HCl (Diltiazem 24hr Cd) 300 mg DAILY PO Last administered on 08:37; Start 08/23/16 at 09:00 Sulfur Hexafluoride Microspheres 25 mg 25 mg STK-MED ONCE IVP ; Start 08/22/16 at 10:30; Stop 08/23/16 at 08:40; Status DC Magnesium Sulfate/ Dextrose (Magnesium Sulfate PREMIX 2GM) 50 ml @ 25 mls/hr 1X ONCE IV ; Start 08/23/16 at 16:30; Stop 08/23/16 at 16:34; Status DC Carvedilol (Coreg) 3.125 mg BIDWMEALS PO Last administered on 08/27/16 08:36; Start 08/24/16 at 17:00 Sennosides (Senna) 17.2 mg PRN BID PRN PO CONSTIPATION; Start 08/24/16 at 19:15 Iohexol 100 ml 100 ml STK-MED ONCE .ROUTE ; Start 08/26/16 at 10:10; Stop at 10:11; Status DC Heparin Sodium/ Sodium Chloride 500 ml @ As Directed STK-MED ONCE .ROUTE ; Start 08/26/16 at 10:10; Stop 08/26/16 at 10:11; Status DC Lidocaine HCl 20 ml STK-MED ONCE .ROUTE ; Start 08/26/16 at 10:10; Stop 08/26/16 at 10:11; Status DC Nitroglycerin (Nitroglycerin) 200 mcg STK-MED ONCE .ROUTE ; Start 08/26/16 at 11: 46; Stop 08/26/16 at 11:47; Status DC Verapamil HCl (Verapamil) 5 mg STK-MED ONCE .ROUTE ; Start 08/26/16 at 11:46; Stop 08/26/16 at 11:47; Status DC Heparin Sodium (Porcine) 10,000 unit STK-MED ONCE .ROUTE ; Start 08/26/16 at 11: 46; Stop 08/26/16 at 11:47; Status DC Fentanyl Citrate (Fentanyl 2ml Vial) 100 mcg STK-MED ONCE .ROUTE ; Start at 11:46; Stop 08/26/16 at 11:47; Status DC Midazolam HCl (Versed) 2 mg STK-MED ONCE .ROUTE ; Start 08/26/16 at 11:46; Stop 08/26/16 at 11:47; Status DC Adenosine (Adenoscan) 90 mg STK-MED ONCE IV ; Start 08/26/16 at 12:18; Stop at 12:19; Status DC Adenosine (Adenoscan) 90 mg STK-MED ONCE IV ; Start 08/26/16 at 12:19; Stop at 12:20; Status DC Iohexol (Omnipaque 300 Mg/ml) 100 ml STK-MED ONCE .ROUTE ; Start 08/26/16 at 12: 23; Stop 08/26/16 at 12:24; Status DC Nitroglycerin (Nitroglycerin) 200 mcg 1X ONCE IART Last administered on t 12:45; Start 08/26/16 at 12:45; Stop 08/26/16 at 12:46; Status DC Verapamil HCl (Verapamil) 2.5 mg 1X ONCE IART Last administered on 08/26/16 12 :45; Start 08/26/16 at 12:45; Stop 08/26/16 at 12:46; Status DC Heparin Sodium (Porcine) 2,500 unit 1X ONCE IART Last administered on 12:46; Start 08/26/16 at 12:45; Stop 08/26/16 at 12:46; Status DC Heparin Sodium/ Sodium Chloride 1,000 unit 1X ONCE IART Last administered on 12:47; Start 08/26/16 at 12:45; Stop 08/26/16 at 12:46; Status DC Iohexol (Omnipaque 300 Mg/ml) 165 ml 1X ONCE IART Last administered on 12:45; Start 08/26/16 at 12:45; Stop 08/26/16 at 12:46; Status DC Heparin Sodium (Porcine) 5,000 unit 1X ONCE IV Last administered on 08/26/16 12:47; Start 08/26/16 at 12:45; Stop 08/26/16 at 12:46; Status DC Lidocaine HCl 1 ml 1 ml 1X ONCE IJ Last administered on 08/26/16 12:47; Start 08/26/16 at 12:45; Stop 08/26/16 at 12:46; Status DC Adenosine/Sodium Chloride (Adenoscan/Iv Sodium Chloride 0.9% 50ml) 120 ml @ 200 mls/hr 1X ONCE IV Last administered on 08/26/16 12:45; Start 08/26/16 at 12 :45; Stop 08/26/16 at 13:20; Status DC Midazolam HCl (Versed) 1 mg 1X ONCE IV Last administered on 08/26/16 12:51; Start 08/26/16 at 13:00; Stop 08/26/16 at 13:01; Status DC Fentanyl Citrate (Fentanyl 2ml Vial) 50 mcg 1X ONCE IV Last administered on 12:51; Start 08/26/16 at 13:00; Stop 08/26/16 at 13:01; Status DC Nystatin (Nystop) 1 sen BID TP Last administered on 08/27/16t 08:34; Start at 16:00 Active Scripts Active Reported Aspirin 325 Mg Tablet 1 Tab PO DAILY Atenolol 25 Mg Tablet 1 Tab PO DAILY Enalapril Maleate 20 Mg Tablet 1 Tab PO BID Vitals/I & O Vital Sign - Last 24 Hours 08/26/16 08/26/16 08/26/16 08/26/16 11:21 12:38 12:45 12:51 Temp 97.7 97.7 Pulse 77 85 73 Resp 20 16 16 B/P 126/72 Pulse Ox 93 96 96 O2 Delivery Nasal Cannula NonRebreather Mask Nasal Cannula O2 Flow Rate 3.0 10.0 6.0 08/26/16 08/26/16 08/26/16 08/26/16 13:00 13:15 13:30 14:00 Pulse 90 82 82 80 B/P 138/72 125/72 113/69 119/69 08/26/16 08/26/16 08/26/16 08/26/16 14:29 14:30 15:45 15:51 Temp 97.6 97.6 Pulse 84 82 80 Resp 21 B/P 131/61 131/61 128/68 Pulse Ox 93 93 O2 Delivery Nasal Cannula Nasal Cannula O2 Flow Rate 3.0 3.0 08/26/16 08/26/16 08/26/16 08/26/16 16:45 17:11 17:15 18:15 Pulse 78 84 78 76 B/P 112/61 131/61 132/72 105/65 08/26/16 08/26/16 08/26/16 08/26/16 20:00 20:00 20:19 23:05 Temp 98.2 98.2 Pulse 79 Resp 18 B/P 123/76 Pulse Ox 91 98 O2 Delivery Nasal Cannula Nasal Cannula Nasal Cannula Nasal Cannula O2 Flow Rate 3.0 3.0 3.0 3.0 08/27/16 08/27/16 08/27/16 08/27/16 03:40 07:00 07:07 08:00 Temp 97.9 98.4 97.9 98.4 Pulse 62 76 Resp 16 18 B/P 137/72 149/80 Pulse Ox 95 92 92 O2 Delivery Nasal Cannula Nasal Cannula Nasal Cannula Nasal Cannula O2 Flow Rate 3.0 3.0 3.0 3.0 08/27/16 08/27/16 08/27/16 08/27/16 08:36 08:36 08:37 08:37 Pulse 84 84 84 84 B/P 149/80 149/80 149/80 149/80 Intake and Output 08/26/16 08/26/16 08/27/16 15:00 23:00 07:00 Intake Total 220 ml 50 ml Output Total 950 ml 550 ml 950 ml Balance -730 ml -550 ml -900 ml BRITTNEY LAMB III DO Aug 27, 2016 11:19
[2016-08-27] MEDS ORDERED: METOPROLOL TART IMMED RELEASE 25 MG TABLET PO SCH (13:30)
[2016-08-27 15:00] VITALS: BP 148/78
[2016-08-27] MEDS ORDERED: APIX5TAB PO (15:34)
[2016-08-27] MEDS ORDERED: FUROSEMIDE 40 MG TABLET PO ONE (17:00)
[2016-08-28] MEDS ORDERED: FUROSEMIDE 40 MG TABLET PO SCH (09:00)
== END 2016-08-27 17:00 | disposition home or self-care (01) | DRG 286 ==
LOC: ER 12:04 → 2 SOUTH 14:50 → 2 NORTH 08-25 14:28
PROVIDERS: ADMIT Internal Medicine Hematology & Oncology; ATTEND Internal Medicine Hematology & Oncology
PROC: 4A023N7 Measurement of Cardiac Sampling and Pressure, Left Heart, Percutaneous Approach (ICD-10-PCS; principal; 2016-08-26)
PROC: B2111ZZ Fluoroscopy of Multiple Coronary Arteries using Low Osmolar Contrast (ICD-10-PCS; 2016-08-26)
PROC: B2151ZZ Fluoroscopy of Left Heart using Low Osmolar Contrast (ICD-10-PCS; 2016-08-26)
PROC: 4A033BC Measurement of Arterial Pressure, Coronary, Percutaneous Approach (ICD-10-PCS; 2016-08-26)
DX: I11.0 Hypertensive heart disease with heart failure (principal); J96.01 Acute respiratory failure with hypoxia; I47.2 Ventricular tachycardia; Z68.43 Body mass index [BMI] 50.0-59.9, adult; I50.43 Acute on chronic combined systolic (congestive) and diastolic (congestive) heart failure; I48.0 Paroxysmal atrial fibrillation; D50.9 Iron deficiency anemia, unspecified; E11.649 Type 2 diabetes mellitus with hypoglycemia without coma; E66.01 Morbid (severe) obesity due to excess calories; E78.5 Hyperlipidemia, unspecified; M19.90 Unspecified osteoarthritis, unspecified site; E83.42 Hypomagnesemia; F17.210 Nicotine dependence, cigarettes, uncomplicated; I27.2 Other secondary pulmonary hypertension; I48.91 Unspecified atrial fibrillation; I87.2 Venous insufficiency (chronic) (peripheral); G47.33 Obstructive sleep apnea (adult) (pediatric); I07.1 Rheumatic tricuspid insufficiency; I25.2 Old myocardial infarction; Z79.899 Other long term (current) drug therapy; Z91.19 Patient's noncompliance with other medical treatment and regimen; I25.110 Atherosclerotic heart disease of native coronary artery with unstable angina pectoris
CPT/HCPCS: 93458; 99285; C8929; 36415; 71010; 80048; 80061; 80076; 83036; 83690; 83735; 83880; 84443; 84484; 85027; 93005; 94250; 94640; 94760; 96374; C1769; C1887; C1892; J0153; J1160; J1940; J2250; J3010; J3490; J7060; J7620; Q9967; 97116; 97530; 97535; Q9950

== ENCOUNTER → 2016-09-13 | Outpatient (CLI) | payer OTHER ==
[2016-08-27 15:00] VITALS: BP 148/78
[~2016-09-13] MED LIST: APIX5TAB PO; ASPI325T4 PO; ATEN25TA PO; ENAL20TA PO
--- NOTE | 2016-09-15 16:02 | SLEEP ---
DATE OF STUDY: 09/13/2016 REFERRING PHYSICIAN: Dr. Iban Dunlap. Baljit is 56 years old who weighs 350 pounds with a BMI of 47. The patient's Ullin score was 5. A split night study was performed at [facility]. During the night study, the patient spent 467 minutes in bed and slept for 345 minutes with a sleep efficiency of 74%. Sleep latency was 27 minutes with a REM latency of 126 minutes. Overall, sleep architecture showed increased stage I and stage II sleep, absent slow wave and reduced REM sleep. During the initial diagnostic portion of the study, the patient slept for 151 minutes. During this time, there was 1 obstructive apnea, 15 mixed apneas and 1 central apnea. There were 249 hypopneas. The patient's apnea hypopnea index was 106 per hour with a supine index of 48 per hour and a REM index of 98 per hour. EKG monitoring revealed atrial fibrillation with occasional PACs. Average heart rate was 97 beats per minute. Review of nocturnal oximetry study revealed a mean oxygen saturation of 84% with the lowest of 64. 55% of time oxygen saturation remained between 80% and 89% and 41% of time between 70 and 79%. PLMs were not seen. The patient met the criteria for CPAP initiation. It was started at 7 cm of water and then titrated up to 18 cm of water. Due to persistent respiratory events, the patient was switched to BiPAP at 20/12 and the pressure increased up to 24/15. The patient did complain of intolerance to higher BiPAP pressure. At a maximum pressure of 24/15, patient's AHI was 43 per hour; however, best results were seen at a BiPAP pressure of 20/12. At that pressure, the patient slept for 21 minutes. AHI was down to 8.6 per hour. The patient did have supine and REM sleep. Oxygen saturation remained in the mid 80s. The patient used a full face mask, medium size. IMPRESSION: 1. Severe sleep apnea-hypopnea syndrome with an AHI of 106 per hour. 2. Nocturnal hypoxia, not completely resolved with final BiPAP pressure. 3. Abnormal EKG with atrial fibrillation with a controlled rate. RECOMMENDATIONS: 1. The best results were seen at a BiPAP pressure of 20/12 and it should be used on a nightly basis. I would recommend that patient should have a followup to see an improvement in compliance with BiPAP and also review of the download data to make sure the AHI is under 5. 2. Weight loss is strongly advised. 3. Avoid [employer] depressants. 4. I would also recommend doing a nocturnal oximetry study on the current BiPAP setting to assess the need for any supplemental oxygen. 5. Follow up with Cardiology if A-Fib is a new finding. 6. Caution regarding driving until symptoms of sleep apnea resolve with the use of BiPAP. IBAN DUNLAP MD DR: ARJUN/july JOB#: [id number] / [id number] GABRIELA
== END | disposition home or self-care (01) ==
LOC: SLPLAB 18:22
PROVIDERS: ATTEND Internal Medicine Critical Care Medicine
DX: G47.33 Obstructive sleep apnea (adult) (pediatric) (principal)
CPT/HCPCS: 95810

== ENCOUNTER 2018-02-09 19:02 | Emergency (ER) | payer SELFPAY ==
[2018-02-09 09:19] VITALS: BP 116/68
[~2018-02-09 19:02] MED LIST changes: +ALBU2.5V5 NEB; +ASCO500T2 PO; -ASPI325T4 PO; +ASPI325T8 PO; +BUDE0.5A NEB; +CARV3.122 PO; +DEXTROSE 50% 25 GM / 50ML DISP.SYRIN. IV ONE; +DIGO125T PO; +DILT300C40 PO; +EPINEPHrine SYRINGE 1 MG/10 ML SYRINGE ONE; +EPINEPHrine VIAL 30 MG/30 ML VIAL ONE; +FAMO40TA4 PO; +FURO40TA4 PO; +LISI-338 PO; +LISI10TA2 PO; +MAGNESIUM SULFATE PREMIX 1 GM/100 ML BAG. IV ONE; +NYST100054 SWSW; +POTA10TA12 PO; +SODIUM BICARB ADULT 8.4% 50 MEQ/50 ML DISP.SYRIN. ONE; +THIA100T22 PO
[2018-02-09] MEDS ORDERED: IV NORMAL SALINE 1000ML BAG 1,000 ML IV ONE (19:15)
[2018-02-09 19:25] LABS: BASO % 0 % (0-3); EOS % 0 % (0-3); HEMATOCRIT 31.1 % (39.0-53.0); HEMOGLOBIN 9.7 g/dL (13.0-17.5); LYMPH # 0.9 x10^3/uL (1.0-4.8); LYMPH % 7 % (24-48); MEAN CORPUSCULAR HEMOGLOBIN 29 pg (25-35); MEAN CORPUSCULAR HGB CONC 31 g/dL (31-37); MEAN CORPUSCULAR VOLUME 92 fL (79-100); MONO # 0.8 x10^3/uL (0.0-1.1); MONO % 6 % (0-9); NEUT # 10.7 x10^3uL (1.8-7.7); NEUT % 86 % (31-73); PLATELET COUNT 61 x10^3/uL (140-400); RED BLOOD COUNT 3.38 x10^6/uL (4.30-5.70); WHITE BLOOD COUNT 12.4 x10^3/uL (4.0-11.0)
[2018-02-09 19:30] LABS: PROTHROMBIN TIME PATIENT 19.7 SEC (11.7-14.0)
[2018-02-09 19:41] LABS: ALBUMIN 2.4 g/dL (3.4-5.0); CALCIUM 8.4 mg/dL (8.5-10.1); CREATININE 1.5 mg/dL (0.7-1.3); GFR 48.4; MAGNESIUM 2.5 mg/dL (1.8-2.4); TOTAL BILIRUBIN 0.7 mg/dL (0.2-1.0); TOTAL PROTEIN 4.8 g/dL (6.4-8.2)
[2018-02-09 19:46] LABS: POTASSIUM 6.9 mmol/L (3.5-5.1)
--- NOTE | 2018-02-09 20:13 | PHYS DOC ---
Past Medical History Past Medical History: Arrhythmia, High Cholesterol, Hypertension, NC, Unknown Past Medical History Unable to obtain due to patient's condition Past Surgical History: Other Additional Past Surgical Histo: CARDIAC STENT Past Surgical History Unable to obtain due to patient's condition Alcohol Use: None Drug Use: None Social History Unable to obtain due to patient's condition Adult General Chief Complaint Chief Complaint: CPR/FULL ARREST HPI HPI Patient is a 58-year-old male who presents via EMS as a CODE BLUE. Patient was found unresponsive slumped outside of his vehicle. Patient per [facility] review was a recent admission 01/14/18 until today 02/09/18 for Bacteremia and Sepsis who was being treated with IV antibiotics. EMS reports initial down time approx 10 min. Patient was in PEA arrest upon EMS arrival. Report initiation of ACLS with total of 4 rounds of epi and 1 round of lidocaine that were given. Patient also was defibrillated for pulseless VTach x 2. EMS reports glucose > 100. No history of known trauma. EMS placed IO to right tibia and placed 8.0 ETT in field. HPI limited due to patient's current condition. Review of Systems Review of Systems ROS limited given patient's current condition. Current Medications Current Medications Current Medications Medications (Trade) Dose Ordered Sig/Josh Start Time Stop Time Status Last Admin Dose Admin Sodium Chloride 1,000 ml @ 1,000 mls/hr 1X ONCE 02/09/18 19:15 02/09/18 20:14 DC Allergies Allergies Allergies Coded Allergies Type Severity Reaction Last Updated Verified I S O L A T I O N *CONTACT* Allergy Unknown 01/26/18 Yes No Known Medication Allergies Allergy Unknown 01/26/18 Yes Physical Exam Physical Exam Constitutional: Obese male, cool to touch, unresponsive HENT: Normocephalic, atraumatic, ETT hubbed at teeth Eyes: Pupils unresponsive and dilated, slight conjunctiva erythema noted bilaterally Neck: supple, no crepitance, no trauma appreciated. Cardiovascular: Artificial with mechanical compression device, CR > 2 sec, peripheral cyanosis noted Lungs & Thorax: Breath sounds decreased on left, ETT repositioned to 26cm at teeth with improvement of aeration. Still distant but bilateral Abdomen: soft, no masses Skin: Cool, cyanotic to periphery Extremities: cyanosis noted, Bilateral LE edema 2+ Neurologic: GCS 3, unable to full assess Current Patient Data Lab Values Laboratory Tests Test 02/09/18 19:07 02/09/18 19:10 02/09/18 19:13 Glucose (Fingerstick) 119 mg/dL (70-99) H White Blood Count 12.4 x10^3/uL (4.0-11.0) H Red Blood Count 3.38 x10^6/uL (4.30-5.70) L Hemoglobin 9.7 g/dL (13.0-17.5) L Hematocrit 31.1 % (39.0-53.0) L Mean Corpuscular Volume 92 fL (79-100) # Mean Corpuscular Hemoglobin 29 pg (25-35) Mean Corpuscular Hemoglobin Concent 31 g/dL (31-37) Red Cell Distribution Width 20.0 % (11.5-14.5) H Platelet Count 61 x10^3/uL (140-400) L Neutrophils (%) (Auto) 86 % (31-73) H Lymphocytes (%) (Auto) 7 % (24-48) L Monocytes (%) (Auto) 6 % (0-9) Eosinophils (%) (Auto) 0 % (0-3) Basophils (%) (Auto) 0 % (0-3) Neutrophils # (Auto) 10.7 x10^3uL (1.8-7.7) H Lymphocytes # (Auto) 0.9 x10^3/uL (1.0-4.8) L Monocytes # (Auto) 0.8 x10^3/uL (0.0-1.1) Eosinophils # (Auto) 0.0 x10^3/uL (0.0-0.7) Basophils # (Auto) 0.0 x10^3/uL (0.0-0.2) Prothrombin Time 19.7 SEC (11.7-14.0) H Prothrombin Time INR 1.7 (0.8-1.1) H Sodium Level 128 mmol/L (136-145) L Potassium Level 6.9 mmol/L (3.5-5.1) *H Chloride Level 94 mmol/L (98-107) L Carbon Dioxide Level 19 mmol/L (21-32) L Anion Gap 15 (6-14) H Blood Urea Nitrogen 50 mg/dL (8-26) H Creatinine 1.5 mg/dL (0.7-1.3) H Estimated GFR (Cockcroft-Gault) 48.4 BUN/Creatinine Ratio 33 (6-20) H Glucose Level 212 mg/dL (70-99) H Calcium Level 8.4 mg/dL (8.5-10.1) L Magnesium Level 2.5 mg/dL (1.8-2.4) H Total Bilirubin 0.7 mg/dL (0.2-1.0) Aspartate Amino Transferase (AST) 26 U/L (15-37) Alanine Aminotransferase (ALT) 43 U/L (16-63) Alkaline Phosphatase 93 U/L (46-116) Creatine Kinase 111 U/L (39-308) Creatine Kinase MB (Mass) 3.1 ng/mL (0.0-3.6) Creatine Kinase MB Relative Index 2.8 % (0-4) Troponin I Quantitative 0.068 ng/mL (0.000-0.055) PQ-Odt-Z-Type Natriuretic Peptide 2002 pg/mL (0-124) H Total Protein 4.8 g/dL (6.4-8.2) L Albumin 2.4 g/dL (3.4-5.0) L Albumin/Globulin Ratio 1.0 (1.0-1.7) Lipase 79 U/L (73-393) POC Troponin I 0.04 ng/ml (<0.08) Laboratory Tests 02/09/18 19:10 Laboratory Tests 02/09/18 19:10 EKG EKG @1908 Wide complex QRS at 94bpm, possible afib, concern for myocardia ischemia - ST elevation I and aVL and V4-V6 Compared to prior EKG from 01/14/18 with significant change. Radiology/Procedures Radiology/Procedures [] Course & Med Decision Making Course & Med Decision Making Pertinent Labs and Imaging studies reviewed. (See chart for details) Patient presents via EMS as CODE BLUE. Notation of PEA upon arrival EMS reports ACLS provided with 4 rounds of epi and 1 round of lidocaine provided in field. Patient given 1 round of epi upon arrival and adjustment of ETT with good color change and improvement of aeration. Return of spontaneous circulation noted. EKG with concern for ischemia. Labs obtained. ISTAT noted hyperkalemia. Lost pulses prior to being able to call CODE STEMI. ACLS continued. Several rounds of epi provided. Bicarb x 2 also given. Calcium, insulin, and dextrose provided for hyperkalemia. Pulseless Vtach noted with defibrilation x 2. Patient also given mag for concern for possible torsades at one point. Blood noted in ETT which was suctioned. Patient continued without return of circulation. Bedside US utilized with not concentric cardiac activity. Decision to terminate further efforts. Time of called 1943. Discussed case with Dr. Bishpo (drug and alcohol counselor) regarding case. Reports not candidate for drug and alcohol counselor at this time. Given that patient does not have a PCP was recommended to touch this with hospitalist given that patient was recently an inpatient. Discussed case with Dr. Kristan Kevin (hospitalist) who is in agreement with signing the certificate. Discussed findings with patient's emergency contact regarding. Emergency contact acknowledges understanding. Dragon Disclaimer Dragon Disclaimer This electronic medical record was generated, in whole or in part, using a voice recognition dictation system. Departure Departure Impression: Primary Impression: Cardiopulmonary arrest Additional Impression: Hyperkalemia Disposition: 20 Condition: Referrals: GOOY GORDON MD (PCP) Critical Care Time Critical care time was 30-74 minutes which includes time at bedside, spent in discussion of patient's care with specialists and/or family members, with interpretation of laboratory and/or radiological studies and is exclusive of procedures. Problem Qualifiers GABRIELA MUNSON DO Feb 09, 2018 20:13
--- NOTE | 2018-02-10 14:19 | EKG ---
[facility] [address] [place] [id number] Test Date: 2018-02-09 Test Time: 19:08:20 Pat Name: ELENA HCO Department: Room: Gender: M [employer] Supervisor: : [id number] Requested By: GABRIELA MUNSON Order Number: [id number] Reading MD: Corey Stark MD Measurements Intervals [place] Rate: 93 P: [place]: QRS: 0 QRSD: 80 T: 116 QT: 370 QTc: 462 Interpretive Statements SR PROBABLE V-PACING Electronically Signed On 02-12-2018 10:01:05 CDT by Corey Stark MD
== END 2018-02-09 22:20 | disposition expired ==
LOC: ER 19:02
DX: I46.9 Cardiac arrest, cause unspecified (principal); E87.5 Hyperkalemia; E78.00 Pure hypercholesterolemia, unspecified; I10 Essential (primary) hypertension; I25.2 Old myocardial infarction; Z91.041 Radiographic dye allergy status
CPT/HCPCS: 36415; 80053; 82553; 82962; 83690; 83735; 83880; 84484; 85025; 85610; 93005; 99285; J0171; J3475; J7042